=== PATIENT | male | born 1940 ===

== ENCOUNTER 2016-05-13 13:28 | Observation (INO) | payer MEDICARE, MEDICAID ==
[2016-05-13 13:29] VITALS: BMI 25.7
[2016-05-13 13:44] VITALS: O2SAT 100
--- NOTE | 2016-05-13 14:38 | C.PDOC ---
History Of Present Illness 75 yr old male presents to the ER with complaints of chest pain for the last 3 hours with mild SOB. Patient also reports of bilateral shoulder pain and upper back pain. Patient states he has been seen multiple times before for similar symptoms. Patient denies taking pain medications at home. Also denies fever, chills cough, nausea, vomiting, headache, weakness or numbness. 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) Past Medical History Reviewed: Historical Data, Nursing Documentation, Vital Signs Vital Signs: Last Vital Signs Temp 97.7 F 05/13/16 18:35 Pulse 77 05/13/16 18:35 Resp 18 05/13/16 18:35 BP 153/68 H 05/13/16 18:35 Pulse Ox 100 05/13/16 18:35 - Medical History PMH: Anxiety, Arthritis, Asthma, Back Problems (Chronic Pain), Diabetes, HTN, Hypercholesterolemia Surgical History: Coronary Stent - [facility] Procedures CORONAR ARTERIOGR-2 CATH (12/02/13) LEFT HEART CARDIAC CATH (12/02/13) LT HEART ANGIOCARDIOGRAM (12/02/13) Family History: States: No Known Family Hx - Social History Hx Tobacco Use: Yes Hx Alcohol Use: No Hx Substance Use: No - Immunization History Hx Tetanus Toxoid Vaccination: No Hx Influenza Vaccination: No Hx Pneumococcal Vaccination: No Review Of Systems Except As Marked, All Systems Reviewed And Found Negative. Constitutional: Negative for: Fever Cardiovascular: Positive for: Chest Pain Respiratory: Positive for: Shortness of Breath (mild) Gastrointestinal: Negative for: Nausea, Vomiting Musculoskeletal: Positive for: Shoulder Pain (bilateral ), Back Pain (upper) Neurological: Negative for: Weakness, Numbness, Headache Physical Exam - Physical Exam Appears: Non-toxic, No Acute Distress Skin: Warm, Dry Head: Atraumatic, Normacephalic Oral Mucosa: Moist Throat: Normal, No Erythema, No Exudate Neck: Normal, Normal ROM, Supple Chest: Symmetrical, Other ((+) Reproducible palpitations to the anterior chest, upper thoracic and trapezius muscle. ) Cardiovascular: Rhythm Regular, No Murmur Respiratory: Normal Breath Sounds, No Rales, No Rhonchi, No Stridor, No Wheezing Gastrointestinal/Abdominal: Normal Exam, Soft, No Tenderness, No Guarding, No Rebound Extremity: Normal ROM, No Swelling Neurological/Psych: Oriented x3, Normal Speech, Normal Motor ED Course And Treatment - Laboratory Results Result Diagrams: 05/13/16 14:54 05/13/16 14:54 O2 Sat by Pulse Oximetry: 100 - Radiology CXR: Interpreted by Me, Viewed By Me CXR Interpretation: Yes: No Acute Disease, Other (Compared to prior.). No: Infiltrates, Pnemothorax Medical Decision Making Medical Decision Making: pt here for same complaints mult times in the past. I disc w his pcp dr perez who agrees w plan for f/u in office monday. ED OBSERVATION Discharge: Yes Date of observation admission: 05/13/16 Time of observation admission: 15:00 - Observation admission statement Patient is being placed in observation because:: 3 hour trop Disposition - Disposition Disposition: HOME/ ROUTINE Disposition Time: 18:50 Condition: STABLE - Clinical Impression Clinical Impression: Chest pain - Scribe Statement The provider has reviewed the documentation as recorded by the Lester Cantu Provider Attestation: All medical record entries made by the Lester were at my direction and personally dictated by me. I have reviewed the chart and agree that the record accurately reflects my personal performance of the history, physical exam, medical decision making, and the department course for this patient. I have also personally directed, reviewed, and agree with the discharge instructions and disposition.
[2016-05-13 14:58] LABS: BASO # 0.1 K/uL (0.0-0.2); BASO % 1.1 % (0.0-2.0); EOS # 0.1 K/uL (0.0-0.7); EOS % 1.9 % (0.0-4.0); HEMATOCRIT 44.2 % (35.0-51.0); LYMPH # 1.2 K/uL (1.0-4.3); LYMPH % 26.1 % (20.0-40.0); MEAN CELL VOLUME 83.8 fL (80.0-94.0); MEAN CORPUSCULAR HEMOGLOBIN 28.5 pg (27.0-31.0); MEAN PLATELET VOLUME 8.8 fL (7.2-11.7); MONO # 0.5 K/uL (0.0-0.8); MONO % 10.3 % (0.0-10.0); NRBC % 0.1 % (0.0-2.0); RED CELL DISTRIBUTION WIDTH 13.8 % (11.5-14.5); WHITE BLOOD COUNT 4.8 K/uL (4.8-10.8)
[2016-05-13 15:11] LABS: CHLORIDE 96 mmol/L (98-107)
[2016-05-13 15:12] LABS: POTASSIUM 3.9 mmol/L (3.6-5.2); SODIUM 136 mmol/L (132-148)
[2016-05-13 15:14] LABS: ALB/GLOB RATIO 1.3 (1.0-2.1); AST/SGOT 32 U/L (17-59); BILIRUBIN,TOTAL 1.2 mg/dL (0.2-1.3); CARBON DIOXIDE 28 mmol/L (22-30); GFR AFRICAN-AMERICAN > 60; TOTAL PROTEIN 7.8 g/dL (6.3-8.3)
[2016-05-13 15:15] LABS: ALKALINE PHOSPHATASE 66 U/L (38-126); ALT/SGPT 27 U/L (21-72); BLOOD UREA NITROGEN 20 mg/dL (9-20); CALCIUM 9.1 mg/dl (8.6-10.4); GLUCOSE,RANDOM 137 mg/dL (75-110)
--- NOTE | 2016-05-13 15:28 | RAD ---
HISTORY: cp COMPARISON: Chest x-ray performed 04/21/16 TECHNIQUE: Chest PA and lateral FINDINGS: Examination limited by habitus. LUNGS: Bibasilar atelectasis. Scattered probable calcified granulomas. Please note that chest x-ray has limited sensitivity for the detection of pulmonary masses. PLEURA: No significant pleural effusion identified. No definite pneumothorax . CARDIOVASCULAR: Heart size appears within normal limits. Tortuous aorta. OSSEOUS STRUCTURES: Degenerative changes of the spine. VISUALIZED UPPER ABDOMEN: Unremarkable. OTHER FINDINGS: Scattered punctate radiopaque densities projects over the right navya thorax most prominent in the right upper lobe. IMPRESSION: Scattered metallic densities project over the right navya thorax. Bibasilar atelectasis.
[2016-05-13 18:35] VITALS: BP 153/68; PULSE 77; RESP 18; TEMP 97.7
--- NOTE | 2016-05-15 23:46 | CARD ---
APPROVED REPORT EKG Measurement Heart [id number] 148P50 [id number] <Conclusion> Normal sinus rhythm Normal ECG
== END 2016-05-13 18:51 | disposition home or self-care (01) ==
LOC: C.ER 13:28 → C.9OBSV 15:58
PROVIDERS: ADMIT Emergency Medicine; ATTEND Emergency Medicine
DX: R07.9 Chest pain, unspecified (principal); I10 Essential (primary) hypertension; E78.00 Pure hypercholesterolemia, unspecified; Z87.891 Personal history of nicotine dependence; J45.909 Unspecified asthma, uncomplicated; E11.9 Type 2 diabetes mellitus without complications; Z95.5 Presence of coronary angioplasty implant and graft; I25.10 Atherosclerotic heart disease of native coronary artery without angina pectoris
CPT/HCPCS: 36415; 71020; 80053; 84484; 85025; 93005; 96374; 99284; G0378; J1885

== ENCOUNTER 2016-05-19 13:23 | Observation (INO) | payer MEDICARE, MEDICAID ==
[2016-05-19 13:24] VITALS: BMI 25.7
[2016-05-19] MEDS ORDERED: Aspirin 325 mg EC Tablets PO STA (14:06)
[2016-05-19] MEDS ORDERED: Sodium Chloride 0.9% 1,000 ML IV ONE (14:06)
--- NOTE | 2016-05-19 14:09 | C.PDOC ---
History Of Present Illness 76 y/o male presents to the ED with complains of midsternal chest pain which onset at 0800 today. Pain radiates to bilateral shoulders, also complaining of SOB. Pt called PMD Kandace who told patient to go to ED. Pt denies dizziness, weakness, numbness, vomiting or any other complaints. Time Seen by Provider: 05/19/16 13:56 Chief Complaint (Nursing): Chest Pain History Per: Patient History/Exam Limitations: no limitations Onset/Duration Of Symptoms: Hrs Current Symptoms Are (Timing): Still Present Severity: Mild Quality: "Pain" Modifying Factors: None Alleviating Factors: None Recent travel outside of the [place]: No Past Medical History Reviewed: Historical Data, Nursing Documentation, Vital Signs Vital Signs: Last Vital Signs Temp 97.6 F 05/19/16 13:31 Pulse 76 05/19/16 15:29 Resp 17 05/19/16 15:29 BP 125/57 L 05/19/16 15:29 Pulse Ox 97 05/19/16 15:29 - Medical History PMH: Anxiety, Arthritis, Asthma, Back Problems (Chronic Pain), Diabetes, HTN, Hypercholesterolemia Surgical History: Coronary Stent - [facility] Procedures CORONAR ARTERIOGR-2 CATH (12/02/13) LEFT HEART CARDIAC CATH (12/02/13) LT HEART ANGIOCARDIOGRAM (12/02/13) Family History: States: Unknown Family Hx - Social History Hx Tobacco Use: Yes Hx Alcohol Use: No Hx Substance Use: No - Immunization History Hx Tetanus Toxoid Vaccination: No Hx Influenza Vaccination: No Hx Pneumococcal Vaccination: No Review Of Systems Constitutional: Negative for: Fever Cardiovascular: Positive for: Chest Pain (radiating to shoulders) Respiratory: Positive for: Shortness of Breath Gastrointestinal: Negative for: Vomiting Neurological: Negative for: Weakness, Numbness, Headache, Dizziness Physical Exam - Physical Exam Appears: Non-toxic, No Acute Distress Skin: Warm, Dry, No Rash Head: Atraumatic, Normacephalic Eye(s): bilateral: Normal Inspection, EOMI Oral Mucosa: Moist Neck: Normal ROM Chest: Symmetrical, Tenderness (anterior chest wall tenderness) Cardiovascular: Rhythm Regular, No Murmur Respiratory: Normal Breath Sounds, No Rales, No Rhonchi, No Wheezing Gastrointestinal/Abdominal: Soft Extremity: Bilateral: Atraumatic, No Pedal Edema, Normal Color And Temperature, Normal ROM Pulses: Left Radial: Normal Neurological/Psych: Oriented x3, Normal Speech Gait: Steady ED Course And Treatment - Laboratory Results Result Diagrams: 05/19/16 14:27 05/19/16 14:27 Lab Interpretation: No Acute Changes ECG: Interpreted By Me, Viewed By Me ECG Rhythm: Sinus Rhythm Rate From EC (BPM) O2 Sat by Pulse Oximetry: 97 (on room air) Pulse Ox Interpretation: Normal Medical Decision Making Medical Decision Making: Plan: * EKG, CXR * labs * aspirin * IV fluids EKG REVIEWED. LAB NO ACUTE CHANGES. TROP NEGATIVE SPOKE TO DR JERONIMO WHO WANTS PATIENT OBS-TELE ADMISSION FOR CHEST PAIN AND FURTHER CARDIAC WORKUP Disposition - Disposition Disposition: HOSPITALIZED Disposition Time: 15:05 Condition: STABLE - POA Present On Arrival: Poor Glycemic Control - Clinical Impression Clinical Impression: Chest pain - PA / MANAGER GAMES / Resident Statement MD/DO has reviewed & agrees with the documentation as recorded. - Scribe Statement The provider has reviewed the documentation as recorded by the Scribe Richmond Ramirez All medical record entries made by the Scribe were at my direction and personally dictated by me. I have reviewed the chart and agree that the record accurately reflects my personal performance of the history, physical exam, medical decision making, and the department course for this patient. I have also personally directed, reviewed, and agree with the discharge instructions and disposition. Decision To Admit - Pt Status Changed To: Hospital Disposition Of: Observation - . Bed Request Type: Telemetry Admitting Physician: Freida Jeronimo Patient Diagnosis: Chest pain
[2016-05-19] MEDS ORDERED: Aspirin 325 mg EC Tablets PO ONE (14:16)
[2016-05-19] MEDS ORDERED: Sodium Chloride 0.9% 1,000 ML ONE (14:17)
[2016-05-19 14:36] LABS: BASO # 0.1 K/uL (0.0-0.2); BASO % 1.3 % (0.0-2.0); EOS # 0.1 K/uL (0.0-0.7); EOS % 1.6 % (0.0-4.0); HEMATOCRIT 43.8 % (35.0-51.0); LYMPH % 24.5 % (20.0-40.0); MEAN CELL VOLUME 84.7 fL (80.0-94.0); MEAN CORPUSCULAR HEMOGLOBIN 28.6 pg (27.0-31.0); MEAN CORPUSCULAR HGB CONC 33.7 g/dL (33.0-37.0); MEAN PLATELET VOLUME 8.7 fL (7.2-11.7); MONO # 0.4 K/uL (0.0-0.8); MONO % 10.3 % (0.0-10.0); RED CELL DISTRIBUTION WIDTH 13.3 % (11.5-14.5); WHITE BLOOD COUNT 4.1 K/uL (4.8-10.8)
[2016-05-19 14:41] LABS: CHLORIDE 91 mmol/L (98-107); SODIUM 134 mmol/L (132-148)
[2016-05-19 14:42] LABS: POTASSIUM 4.2 mmol/L (3.6-5.2)
[2016-05-19 14:44] LABS: ALB/GLOB RATIO 1.3 (1.0-2.1); ALKALINE PHOSPHATASE 77 U/L (38-126); ALT/SGPT 21 U/L (21-72); AST/SGOT 23 U/L (17-59); BILIRUBIN,TOTAL 0.8 mg/dL (0.2-1.3); BLOOD UREA NITROGEN 17 mg/dL (9-20); CARBON DIOXIDE 28 mmol/L (22-30); GFR AFRICAN-AMERICAN > 60; GLUCOSE,RANDOM 352 mg/dL (75-110); TOTAL PROTEIN 7.6 g/dL (6.3-8.3)
[2016-05-19 14:45] LABS: CALCIUM 8.9 mg/dl (8.6-10.4)
--- NOTE | 2016-05-19 14:58 | RAD ---
HISTORY: chest pain COMPARISON: Chest x-ray performed 05/13/16 TECHNIQUE: Chest PA and lateral FINDINGS: LUNGS: Bibasilar atelectasis. Please note that chest x-ray has limited sensitivity for the detection of pulmonary masses. PLEURA: No significant pleural effusion identified. No definite pneumothorax . CARDIOVASCULAR: Heart size appears top normal. Tortuous aorta. OSSEOUS STRUCTURES: Mild degenerative changes of the spine. VISUALIZED UPPER ABDOMEN: Unremarkable. OTHER FINDINGS: Scattered punctate metallic/ radiopaque densities project over the right navya thorax. IMPRESSION: Bibasilar atelectasis.
--- NOTE | 2016-05-19 18:31 | CP.PCM.HP ---
Past Patient History - Infectious Disease Hx of Infectious Diseases: None - Past Medical History & Family History Past Medical History?: Yes - Past Social History Smoking Status: Former Smoker - CARDIAC Hx Hypercholesterolemia: Yes Hx Hypertension: Yes - PULMONARY Hx Asthma: Yes - NEUROLOGICAL Hx Neurological Disorder: Yes Hx Dizziness: Yes - HEENT Hx HEENT Problems: Yes Other/Comment: has eyeglasses for reading but doesn't use. - RENAL Hx Chronic Kidney Disease: No - ENDOCRINE/METABOLIC Hx Endocrine Disorders: Yes Hx Diabetes Mellitus Type 1: Yes - HEMATOLOGICAL/ONCOLOGICAL Hx Blood Disorders: No - INTEGUMENTARY Hx Dermatological Problems: No - MUSCULOSKELETAL/RHEUMATOLOGICAL Hx Arthritis: Yes - GASTROINTESTINAL Hx Gastrointestinal Disorders: Yes Hx Nausea: Yes Hx Vomiting: Yes - GENITOURINARY/GYNECOLOGICAL Hx Genitourinary Disorders: No - PSYCHIATRIC Hx Anxiety: Yes Hx Substance Use: No - SURGICAL HISTORY Hx Coronary Stent: Yes - ANESTHESIA Hx Anesthesia: Yes Hx Anesthesia Reactions: No Hx Malignant Hyperthermia: No Meds Allergies/Adverse Reactions: Allergies Allergy/AdvReac Type Severity Reaction Status Date / Time morphine Allergy Intermediate SWELLING Verified 05/19/16 13:48 Results - Vital Signs Recent Vital Signs: Last Vital Signs Temp 97.6 F 05/19/16 13:31 Pulse 73 05/19/16 17:42 Resp 12 05/19/16 17:42 BP 155/72 H 05/19/16 17:42 Pulse Ox 99 05/19/16 17:42 - Labs Result Diagrams: 05/19/16 14:27 05/19/16 14:27
[2016-05-19] MEDS: (Novolin R) Insulin Human Regular 100 units/ml vial SC SCH (22:00)
--- NOTE | 2016-05-20 01:36 | CP.PCM.CON ---
History of Present Illness - History of Present Illness History of Present Illness: For stress test in am Past Patient History - Infectious Disease Hx of Infectious Diseases: None - Past Medical History & Family History Past Medical History?: Yes - Past Social History Smoking Status: Former Smoker - CARDIAC Hx Cardiac Disorders: Yes Hx Hypercholesterolemia: Yes Hx Hypertension: Yes - PULMONARY Hx Respiratory Disorders: Yes Hx Asthma: Yes - NEUROLOGICAL Hx Neurological Disorder: Yes Hx Dizziness: Yes - HEENT Hx HEENT Problems: Yes Other/Comment: has eyeglasses for reading but doesn't use. - RENAL Hx Chronic Kidney Disease: No - ENDOCRINE/METABOLIC Hx Endocrine Disorders: Yes Hx Diabetes Mellitus Type 2: Yes - HEMATOLOGICAL/ONCOLOGICAL Hx Blood Disorders: No - INTEGUMENTARY Hx Dermatological Problems: No - MUSCULOSKELETAL/RHEUMATOLOGICAL Hx Musculoskeletal Disorders: Yes Hx Arthritis: Yes Hx Falls: No - GASTROINTESTINAL Hx Gastrointestinal Disorders: Yes Hx Nausea: Yes Hx Vomiting: Yes - GENITOURINARY/GYNECOLOGICAL Hx Genitourinary Disorders: No - PSYCHIATRIC Hx Psychophysiologic Disorder: Yes Hx Anxiety: Yes Hx Substance Use: No - SURGICAL HISTORY Hx Surgeries: Yes Hx Coronary Stent: Yes - ANESTHESIA Hx Anesthesia: Yes Hx Anesthesia Reactions: No Hx Malignant Hyperthermia: No Meds Allergies/Adverse Reactions: Allergies Allergy/AdvReac Type Severity Reaction Status Date / Time morphine Allergy Intermediate SWELLING Verified 05/19/16 13:48 - Medications Medications: Current Medications Aspirin (Aspirin Chewable) 81 mg PO DAILY [facility] Insulin Human Regular (Novolin R) 0 unit SC ACHS [facility]PA PRN Reason: Protocol Last Admin: 05/19/16 22:00 Dose: Not Given Ketorolac Tromethamine (Toradol) 30 mg IVP Q6 PRN PRN Reason: Pain, Mild (1-3) Last Admin: 05/19/16 22:04 Dose: 30 mg Metformin HCl (Glucophage) 500 mg PO BID [facility] Metoprolol Succinate (Toprol Xl) 50 mg PO DAILY [facility] Pantoprazole Sodium (Protonix Ec Tab) 40 mg PO DAILY [facility] Rosuvastatin Calcium (Crestor) 10 mg PO HS [facility] Last Admin: 05/19/16 22:03 Dose: 10 mg Sitagliptin Phosphate (Januvia) 50 mg PO DAILY [facility] Results - Vital Signs Recent Vital Signs: Last Vital Signs Temp 97.7 F 05/19/16 19:00 Pulse 75 05/19/16 23:56 Resp 16 05/19/16 19:00 BP 157/91 H 05/19/16 20:27 Pulse Ox 98 05/19/16 19:00 - Labs Result Diagrams: 05/19/16 14:27 05/19/16 14:27 Labs: Laboratory Results - last 24 hr 05/19/16 05/19/16 05/19/16 19:43 20:47 20:58 POC Glucose (mg/dL) 292 H 290 H Total Creatine Kinase 73 CK-MB (Mass) 0.96 Troponin I, Quant 0.0160
[2016-05-20 02:13] VITALS: BP 168/87; RESP 20; TEMP 97.1; O2SAT 96
[2016-05-20] MEDS: (Novolin R) Insulin Human Regular 100 units/ml vial SC SCH ×2 (07:43→13:06)
[2016-05-20 07:47] VITALS: PULSE 78
[2016-05-20] MEDS ORDERED: Metoprolol Succinate 50 mg XL Tab PO SCH (10:00)
[2016-05-20] MEDS ORDERED: Pantoprazole 40 mg EC Tab PO SCH (10:00)
--- NOTE | 2016-05-20 13:52 | CARD ---
APPROVED REPORT Protocol: PHARMACOLOGICAL Test Type: LEXISCAN Test Indications: CP Target HR: 142 bpm Resting ECG: normal Resting Heart Rate: 64 bpm Resting Blood Pressure: 140/80mmHg submaximum (85%): 121 bpm TEST SUMMARY PREINFSNHYPERV.16:[id number]/80.0. INFUSIONDOSE 100:310.00.01.068/.0. [id number]:[id number]/80.0. PROCEDURE Pharmacologic stress testing was performed using 0.4mg per 5ml of regadenoson given intravenously over 7-10 seconds. POST EXERCISE Reason for Termination: Lexiscan protocol completed Target HR: No Max HR: 68 bpm 59% of Maximum Predicted HR: 142 bpm Exercise duration: 00:31 min:sec, 0 Stage Exercise capacity: 1.0METs Max Blood Pressure: 140/80mmHg Blood Pressure response to exercise: normal resting BP - appropriate response Heart Rate response to exercise: appropriate Chest Pain: No, none Angina index: 0 Arrhythmia: No, none ST Change: No, none Deviation: 0 mm INTERPRETATION Stress EKG Conclusion: Nuclear report to follow EXAM: Myocardial Perfusion STRESS/REST Imaging Protocol The imaging protocol used to acquire images was Stress Tc-99m/rest Tc-99m 1 day Stress Spect myocardial perfusion imaging was performed in supine position 39 minutes following the injection of 13.2 mCi of Tc-99 Myoview. Gated Rest Spect was performed 40 minutes after intravenous 32.6 mCi Tc-99 Myoview injection. The images were gated to evaluate regional wall motion and calculate ventricular ejection fraction.Images were reconstructed using backfilter projection method in short horizontal and verticle long axis. Spect slices were generated. RESTING DATA EDV82.46hwMQ2.90L/min ESV41.00mlMyocardial Ogja823.00g Av. Heart Rate71.00bpm EF50.00% STRESS DATA EDV85.65qiHK8.50L/min ESV33.00mlMyocardial Qvbx461.00g EF61.00% Regional WT score at stress:2.00 Regional WM score at stress:0.00 Summed WT score at stress:9.00 Av. Heart Rate67.00bpmSummed WM score at stress:2.00 LV Perf. Quant 17 Seg. SSS4.00 17 Seg. SRS5.00 17 Seg. SDS0.00 Stress Defect Extent (% LAD)0.00Rest Defect Extent (% LAD)0.00Rev. Defect Extent (% LAD)0.00 Stress Defect Extent (% LCX)27.50Rest Defect Extent (% LCX)37.50Rev. Defect Extent (% LCX)0.00 Stress Defect Extent (% RCA)0.00Rest Defect Extent (% RCA)0.00Rev. Defect Extent (% RCA)0.00 Stress Defect Extent (% YARELI)5.70Rest Defect Extent (% YARELI)8.50Rev. Defect Extent (% YARELI)0.00 Other Information Quality:Good Left Ventricle LV Function:Left ventricle systolic function is normal. The Ejection Fraction is 65-70%. Conclusion 1. Small fixed inferior defect. No ischemia on stress test. Normal EF.
--- NOTE | 2016-05-20 14:22 | CP.PCM.DIS ---
Provider - Provider Date of Admission: 05/19/16 15:05 Attending physician: Freida Jeronimo MD Hospital Course - Lab Results Lab Results: Most Recent Lab Values WBC 4.1 K/uL (4.8-10.8) L 05/19/16 14: RBC 5.16 Mil/uL (4.40-5.90) 05/19/16 14: Hgb 14.7 g/dL (12.0-18.0) 05/19/16 14: Hct 43.8 % (35.0-51.0) 05/19/16 14: MCV 84.7 fL (80.0-94.0) 05/19/16 14: MCH 28.6 pg (27.0-31.0) 05/19/16 14: MCHC 33.7 g/dL (33.0-37.0) 05/19/16 14: RDW 13.3 % (11.5-14.5) 05/19/16 14: Plt Count 199 K/uL (130-400) 05/19/16 14: MPV 8.7 fL (7.2-11.7) 05/19/16 14: Neut % (Auto) 62.3 % (50.0-75.0) 05/19/16 14: Lymph % (Auto) 24.5 % (20.0-40.0) 05/19/16 14: Brown % (Auto) 10.3 % (0.0-10.0) H 05/19/16 14: Eos % (Auto) 1.6 % (0.0-4.0) 05/19/16 14:27 Baso % (Auto) 1.3 % (0.0-2.0) 05/19/16 14: Neut # 2.6 K/uL (1.8-7.0) 05/19/16 14: Lymph # 1.0 K/uL (1.0-4.3) 05/19/16 14:27 Brown # 0.4 K/uL (0.0-0.8) 05/19/16 14: Eos # 0.1 K/uL (0.0-0.7) 05/19/16 14: Baso # 0.1 K/uL (0.0-0.2) 05/19/16 14:27 PT 11.2 SECONDS (9.7-12.2) 05/19/16 14:27 INR 1.0 05/19/16 14:27 APTT 31 SECONDS (21-34) 05/19/16 14:27 Sodium 134 mmol/L (132-148) 05/19/16 14:27 Potassium 4.2 mmol/L (3.6-5.2) 05/19/16 14:27 Chloride 91 mmol/L (98-107) L 05/19/16 14:27 Carbon Dioxide 28 mmol/L (22-30) 05/19/16 14:27 Anion Gap 19 (10-20) 05/19/16 14:27 BUN 17 mg/dL (9-20) 05/19/16 14:27 Creatinine 0.8 MG/DL (0.8-1.5) 05/19/16 14:27 Est GFR ( Amer) > 60 05/19/16 14:27 Est GFR (Non-Af Amer) > 60 05/19/16 14:27 POC Glucose (mg/dL) 329 mg/dL (65-110) H 05/20/16 12:37 Random Glucose 352 mg/dL (75-110) H 05/19/16 14:27 Calcium 8.9 mg/dl (8.6-10.4) 05/19/16 14:27 Total Bilirubin 0.8 mg/dL (0.2-1.3) 05/19/16 14:27 AST 23 U/L (17-59) 05/19/16 14:27 ALT 21 U/L (21-72) D 05/19/16 14:27 Alkaline Phosphatase 77 U/L (38-126) 05/19/16 14:27 Total Creatine Kinase 69 U/L (55-170) 05/20/16 07:23 CK-MB (Mass) 0.74 ng/mL (0.0-3.38) 05/20/16 07:23 Troponin I < 0.0120 ng/mL (0.00-0.120) 05/19/16 14:27 Troponin I, Quant < 0.0120 ng/mL (0.00-0.120) 05/20/16 07:23 NT-Pro-B Natriuret Pep 94.7 pg/mL (0-900) 05/19/16 14:27 Total Protein 7.6 g/dL (6.3-8.3) 05/19/16 14:27 Albumin 4.3 g/dL (3.5-5.0) 05/19/16 14:27 Globulin 3.3 gm/dL (2.2-3.9) 05/19/16 14:27 Albumin/Globulin Ratio 1.3 (1.0-2.1) 05/19/16 14:27 Discharge Plan - Follow Up Plan Condition: STABLE Disposition: HOME/ ROUTINE
--- NOTE | 2016-05-21 15:08 | CARD ---
APPROVED REPORT EKG Measurement Heart [id number] VT 154P51 [id number] <Conclusion> Normal sinus rhythm Normal ECG
--- NOTE | 2016-05-22 15:42 | CARD ---
APPROVED REPORT EXAM: Two-dimensional and M-mode echocardiogram with Doppler and color Doppler. Other Information Quality : GoodRhythm : INDICATION Dizziness and Vertigo Chest Pain RISK FACTORS Hypertension Hyperlipidemia Diabetes M-Mode DIMENSIONS RVDd2.34 (2.1-3.2cm)Left Atrium (MM)3.63 (2.5-4.0cm) IVSd1.17 (0.7-1.1cm)Aortic Root3.32 (2.2-3.7cm) LVDd5.74 (4.0-5.6cm)Aortic Cusp Exc.1.91 (1.5-2.0cm) PWd1.17 (0.7-1.1cm)FS (%) 41 % LVDs3.36 (2.0-3.8cm)LVEF (%)72 (>50%) Aortic Valve AI P 1/2 [id number] Mitral Valve MV E Dpqpyqbu25.6cm/sMV A Ahpkcwcf44.8cm/sE/A ratio0.6 TDI E/Lateral E'0.0E/Medial E'0.0 Tricuspid Valve TR Peak Vbwgowhv636bf/sTR Peak Gr.06ivVoTKAG53giMy LEFT VENTRICLE The Left Ventricle is borderline dilated. There is mild concentric left ventricular hypertrophy. The Ejection Fraction is 65-70%. There is normal LV segmental wall motion. Transmitral Doppler flow pattern is Grade I-abnormal relaxation pattern. RIGHT VENTRICLE The right ventricle is normal size. The right ventricular systolic function is normal. ATRIA The left atrium size is normal. The right atrium size is normal. The interatrial septum is intact with no evidence for an atrial septal defect. AORTIC VALVE The aortic valve is mildly sclerotic. The aortic valve is trileaflet. There is mild aortic regurgitation. MITRAL VALVE Mitral annular calcification is moderate. Mitral regurgitation is mild. TRICUSPID VALVE The tricuspid valve is normal in structure. There is mild tricuspid regurgitation. Right ventricular systolic pressure is estimated at 30 mmHg. There is no pulmonary hypertension. PULMONIC VALVE The pulmonary valve is normal in structure. GREAT VESSELS The aortic root is normal size. The aortic root displays mild sclerocalcific changes of the aortic root. The IVC is normal in size and collapses >50% with inspiration. PERICARDIAL EFFUSION There is no pericardial effusion. <Conclusion> The Left Ventricle is borderline dilated. There is mild concentric left ventricular hypertrophy. The Ejection Fraction is 65-70%. Transmitral Doppler flow pattern is Grade I-abnormal relaxation pattern. There is mild aortic regurgitation. Mitral regurgitation is mild. The aortic root is normal size. The aortic root displays mild sclerocalcific changes of the aortic root.
== END 2016-05-20 14:47 | disposition home or self-care (01) ==
LOC: C.ER 13:23 → C.9E 15:05 → C.6T 17:23
PROVIDERS: ADMIT Internal Medicine; ATTEND Internal Medicine
DX: R07.9 Chest pain, unspecified (principal); E78.00 Pure hypercholesterolemia, unspecified; I10 Essential (primary) hypertension; Z87.891 Personal history of nicotine dependence; J45.909 Unspecified asthma, uncomplicated
CPT/HCPCS: 36415; 71020; 78452; 80053; 82948; 83880; 84484; 85025; 85610; 85730; 93005; 93017; 93306; 96361; 96374; 99285; A9502; G0378; J1885; J7040

== ENCOUNTER 2016-06-03 13:42 | Emergency (ER) | payer MEDICARE, MEDICAID ==
[2016-06-03 13:42] VITALS: BMI 25.7
[2016-06-03 15:41] VITALS: RESP 18
== END 2016-06-03 15:03 | disposition left against medical advice (07) ==
LOC: C.ER 13:42
DX: M79.672 Pain in left foot (principal); M79.671 Pain in right foot; Z02.9 Encounter for administrative examinations, unspecified

== ENCOUNTER 2016-06-08 10:07 | Emergency (ER) | payer MEDICARE, MEDICAID ==
[2016-06-08 10:08] VITALS: BMI 25.7
[2016-06-08 10:17] VITALS: TEMP 97.3
[2016-06-08] MEDS ORDERED: Nitroglycerin 2% Ointment Foilpak UD TOP STA (10:35)
--- NOTE | 2016-06-08 10:35 | C.PDOC ---
History Of Present Illness 76 Y/O MALE C/O CHEST PAIN SINCE 0800 THIS MORNING. PT WITH MULTIPLE SIMILAR PRIOR VISITS FOR SAME COMPLAINT. PAST RECORDS SHOW PT DISCHARGED FROM THE HOSPITAL 05/20/16, S/P STRESS TEST BY DR. BLAKE, REPORT SHOWING NO ISCHEMIC FINDINGS. PT STATES HE HAS NOT TAKEN ANY MEDICATION FOR PAIN TODAY. DENIES SOB, DYSPNEA, DIAPHORESIS, ABDOMINAL PAIN, NAUSEA, VOMITING, OR OTHER ASSOCIATED SYMPTOMS. Time Seen by Provider: 06/08/16 10:26 Chief Complaint (Nursing): Chest Pain History Per: Patient History/Exam Limitations: language barrier (TRANSLATED BY NEPTALI CAMARA) Onset/Duration Of Symptoms: Hrs Current Symptoms Are (Timing): Still Present Quality: "Pain" Associated Symptoms: denies: Dyspnea Recent travel outside of the [place]: No Additional History Per: Prior Records Past Medical History Reviewed: Historical Data, Nursing Documentation, Vital Signs Vital Signs: Last Vital Signs Temp 97.3 F L 06/08/16 10:15 Pulse 83 06/08/16 11:14 Resp 15 06/08/16 11:14 BP 114/69 06/08/16 11:14 Pulse Ox 98 06/08/16 11:14 - Medical History PMH: Anxiety, Arthritis, Asthma, Back Problems (Chronic Pain), Diabetes, HTN, Hypercholesterolemia Surgical History: Coronary Stent - [facility] Procedures CORONAR ARTERIOGR-2 CATH (12/02/13) LEFT HEART CARDIAC CATH (12/02/13) LT HEART ANGIOCARDIOGRAM (12/02/13) Family History: States: Unknown Family Hx - Social History Hx Tobacco Use: Yes Hx Alcohol Use: No Hx Substance Use: No - Immunization History Hx Tetanus Toxoid Vaccination: No Hx Influenza Vaccination: No Hx Pneumococcal Vaccination: No Review Of Systems Except As Marked, All Systems Reviewed And Found Negative. Constitutional: Negative for: Fever, Chills Cardiovascular: Positive for: Chest Pain. Negative for: Palpitations Respiratory: Negative for: Cough, Shortness of Breath, Wheezing Gastrointestinal: Negative for: Nausea, Vomiting, Abdominal Pain Skin: Negative for: Rash Physical Exam - Physical Exam Appears: Non-toxic, No Acute Distress Skin: Normal Color, Warm, Dry, No Diaphoretic Head: Atraumatic, Normacephalic Chest: Symmetrical, No Tenderness Cardiovascular: Rhythm Regular Respiratory: Normal Breath Sounds, No Rales, No Rhonchi, No Wheezing Gastrointestinal/Abdominal: Soft, No Tenderness, No Guarding, No Rebound Back: Normal Inspection Extremity: Normal ROM, Capillary Refill (< 2 SEC. ) Neurological/Psych: Oriented x3, Normal Speech, Normal Cognition ED Course And Treatment - Laboratory Results Result Diagrams: 06/08/16 10:54 06/08/16 10:54 O2 Sat by Pulse Oximetry: 97 (RA) Pulse Ox Interpretation: Normal Progress - Re-Evaluation Re-evaluation Note: 06/08/16 10:35 EKG, CXR, CARDIAC LABS ORDERED. TYLENOL, NITRO SL GIVEN. 06/08/16 12:57 D/W OPMPMD CLEARED FOR DC - Data Reviewed Data Reviewed: Lab, Diagnostic imaging, EKG, Old records - Continuity of Care Discussed patient case with:: Patient, PMD Disposition Counseled Patient/Family Regarding: Studies Performed, Diagnosis, Need For Followup - Disposition Referrals: YOUR,PMD [Other] Disposition: HOME/ ROUTINE Disposition Time: 12:58 Condition: IMPROVED Instructions: Chest Pain (ED) Print Language: PERSIAN - Clinical Impression Clinical Impression: Chest pain - Scribe Statement The provider has reviewed the documentation as recorded by the Lester Huerta Provider Scribe Attestation: All medical record entries made by the Lester were at my direction and personally dictated by me. I have reviewed the chart and agree that the record accurately reflects my personal performance of the history, physical exam, medical decision making, and the department course for this patient. I have also personally directed, reviewed, and agree with the discharge instructions and disposition.
[2016-06-08] MEDS ORDERED: Nitroglycerin 2% Ointment Foilpak UD TOP ONE (10:43)
[2016-06-08 11:00] LABS: BASO # 0.1 K/uL (0.0-0.2); EOS # 0.1 K/uL (0.0-0.7); EOS % 2.1 % (0.0-4.0); HEMATOCRIT 46.4 % (35.0-51.0); LYMPH # 1.5 K/uL (1.0-4.3); LYMPH % 22.3 % (20.0-40.0); MEAN CELL VOLUME 83.7 fL (80.0-94.0); MEAN CORPUSCULAR HEMOGLOBIN 28.3 pg (27.0-31.0); MEAN CORPUSCULAR HGB CONC 33.8 g/dL (33.0-37.0); MEAN PLATELET VOLUME 8.9 fL (7.2-11.7); MONO # 0.6 K/uL (0.0-0.8); MONO % 8.9 % (0.0-10.0); RED CELL DISTRIBUTION WIDTH 14.2 % (11.5-14.5); WHITE BLOOD COUNT 6.9 K/uL (4.8-10.8)
[2016-06-08 11:05] LABS: CHLORIDE 97 mmol/L (98-107); POTASSIUM 3.5 mmol/L (3.6-5.2); SODIUM 141 mmol/L (132-148)
[2016-06-08 11:08] LABS: BLOOD UREA NITROGEN 19 mg/dL (9-20); CARBON DIOXIDE 27 mmol/L (22-30); GFR AFRICAN-AMERICAN > 60
[2016-06-08 11:09] LABS: GLUCOSE,RANDOM 64 mg/dL (75-110)
--- NOTE | 2016-06-08 11:35 | RAD ---
HISTORY: Chest pain COMPARISON: 05/19/2016. TECHNIQUE: Chest PA and lateral FINDINGS: LUNGS: The lungs are clear. There is bibasilar atelectasis/scarring. There is no focal consolidation. PLEURA: No significant pleural effusion identified. No pneumothorax apparent. CARDIOVASCULAR: Normal. OSSEOUS STRUCTURES: No significant abnormalities. VISUALIZED UPPER ABDOMEN: Normal. OTHER FINDINGS: There are tiny metallic densities projecting over the right hemithorax stable dating back to September 2014. IMPRESSION: No active pulmonary disease.
[2016-06-08 13:15] VITALS: BP 107/68; PULSE 82; RESP 16; O2SAT 100
--- NOTE | 2016-06-16 08:38 | CARD ---
APPROVED REPORT EKG Measurement Heart [id number] <Conclusion> Normal sinus rhythm Nonspecific T wave abnormality Abnormal ECG
== END 2016-06-08 13:14 | disposition home or self-care (01) ==
LOC: C.ER 10:07
DX: R07.9 Chest pain, unspecified (principal)

== ENCOUNTER 2016-06-09 15:07 | Observation (INO) | payer MEDICARE, MEDICAID ==
[2016-06-09 15:11] VITALS: BMI 26.6
[2016-06-09] MEDS ORDERED: Aspirin 325 mg EC Tablets PO STA (16:36)
[2016-06-09] MEDS ORDERED: Nitroglycerin 2% Ointment Foilpak UD TOP STA (16:36)
[2016-06-09] MEDS ORDERED: Aspirin 325 mg EC Tablets PO ONE (16:46)
[2016-06-09] MEDS ORDERED: Nitroglycerin 2% Ointment Foilpak UD TOP ONE (16:47)
[2016-06-09 16:55] LABS: BASO % 0.8 % (0.0-2.0); EOS # 0.1 K/uL (0.0-0.7); EOS % 1.8 % (0.0-4.0); HEMATOCRIT 43.2 % (35.0-51.0); LYMPH # 1.1 K/uL (1.0-4.3); LYMPH % 21.5 % (20.0-40.0); MEAN CELL VOLUME 84.8 fL (80.0-94.0); MEAN CORPUSCULAR HEMOGLOBIN 28.7 pg (27.0-31.0); MEAN CORPUSCULAR HGB CONC 33.9 g/dL (33.0-37.0); MONO # 0.5 K/uL (0.0-0.8); MONO % 9.3 % (0.0-10.0); NRBC % 0.1 % (0.0-2.0); RED CELL DISTRIBUTION WIDTH 14.3 % (11.5-14.5); WHITE BLOOD COUNT 5.1 K/uL (4.8-10.8)
[2016-06-09 16:58] LABS: CHLORIDE 97 mmol/L (98-107); SODIUM 137 mmol/L (132-148)
[2016-06-09 16:59] LABS: POTASSIUM 4.4 mmol/L (3.6-5.2)
[2016-06-09 17:01] LABS: ALB/GLOB RATIO 1.3 (1.0-2.1); ALKALINE PHOSPHATASE 73 U/L (38-126); ALT/SGPT 26 U/L (21-72); AST/SGOT 21 U/L (17-59); BILIRUBIN,TOTAL 0.5 mg/dL (0.2-1.3); BLOOD UREA NITROGEN 22 mg/dL (9-20); CALCIUM 9.1 mg/dl (8.6-10.4); CARBON DIOXIDE 26 mmol/L (22-30); GFR AFRICAN-AMERICAN > 60; GLUCOSE,RANDOM 316 mg/dL (75-110); TOTAL PROTEIN 7.1 g/dL (6.3-8.3)
--- NOTE | 2016-06-09 17:10 | RAD ---
PROCEDURE: CHEST RADIOGRAPH, 1 VIEW HISTORY: chest pain COMPARISON: 06/08/2016 FINDINGS: LUNGS: Clear. PLEURA: No pneumothorax or pleural fluid seen. CARDIOVASCULAR: Normal. OSSEOUS STRUCTURES: No significant abnormalities. VISUALIZED UPPER ABDOMEN: Normal. OTHER FINDINGS: Tiny punctate metallic densities seen over the right hemithorax are stable back to 2015. Correlate with prior trauma history IMPRESSION: No active disease.
[2016-06-09 17:15] LABS: PARTIAL THROMBOPLASTIN TIME 26 SECONDS (21-34)
[2016-06-09] MEDS ORDERED: Sodium Chloride 0.9% 1,000 ML IV ONE (17:24)
[2016-06-09] MEDS ORDERED: Sodium Chloride 0.9% 1,000 ML ONE (17:31)
--- NOTE | 2016-06-09 18:05 | C.PDOC ---
Time Seen by Provider: 06/09/16 15:35 Chief Complaint (Nursing): Chest Pain History Per: Patient History/Exam Limitations: other (Dementia) Onset/Duration Of Symptoms: Unknown Current Symptoms Are (Timing): Still Present Severity: Moderate Quality: "Pain" Alleviating Factors: None Additional History Per: Prior Records Past Medical History Reviewed: Historical Data, Nursing Documentation, Vital Signs Vital Signs: Last Vital Signs Temp 97.7 F 06/09/16 15:12 Pulse 91 H 06/09/16 17:04 Resp 15 06/09/16 17:04 BP 107/69 06/09/16 17:04 Pulse Ox 99 06/09/16 17:04 - Medical History PMH: Anxiety, Arthritis, Asthma, Back Problems (Chronic Pain), Diabetes, Gastritis, HTN, Hypercholesterolemia, Hyperlipidemia Surgical History: Coronary Stent - [facility] Procedures CORONAR ARTERIOGR-2 CATH (12/02/13) LEFT HEART CARDIAC CATH (12/02/13) LT HEART ANGIOCARDIOGRAM (12/02/13) Family History: States: Unknown Family Hx - Social History Hx Tobacco Use: Yes Hx Alcohol Use: No (Former) Hx Substance Use: No - Immunization History Hx Tetanus Toxoid Vaccination: No Hx Influenza Vaccination: No Hx Pneumococcal Vaccination: No Review Of Systems Except As Marked, All Systems Reviewed And Found Negative. Constitutional: Negative for: Fever Cardiovascular: Positive for: Chest Pain Respiratory: Positive for: Shortness of Breath. Negative for: Hemoptysis Gastrointestinal: Negative for: Vomiting, Abdominal Pain Musculoskeletal: Negative for: Neck Pain Skin: Negative for: Rash Neurological: Negative for: Weakness Physical Exam - Physical Exam Appears: Non-toxic, No Acute Distress, Chronically Ill Skin: Normal Color, Warm, Dry, No Rash Head: Atraumatic, Normacephalic Eye(s): bilateral: PERRL, EOMI Neck: Normal ROM, Supple Chest: Symmetrical, No Deformity Cardiovascular: Rhythm Regular Respiratory: Normal Breath Sounds, No Accessory Muscle Use Gastrointestinal/Abdominal: Soft, No Tenderness Back: No CVA Tenderness Extremity: Normal ROM, No Pedal Edema, No Calf Tenderness Neurological/Psych: Normal Motor, Normal Sensation Disoriented To: Time ED Course And Treatment - Laboratory Results Result Diagrams: 06/09/16 16:43 06/09/16 16:43 ECG: Interpreted By Me, Viewed By Me ECG Rhythm: Sinus Rhythm, Nonspecific Changes Rate From EC O2 Sat by Pulse Oximetry: 99 Pulse Ox Interpretation: Normal - Radiology CXR: Interpreted by Me, Viewed By Me CXR Interpretation: Yes: No Acute Disease, Heart Size (WNL) Progress - Interventions Interventions:: Observation, Oxygen - Medications Administered Oral: Aspirin - Data Reviewed Data Reviewed: Lab, Diagnostic imaging, EKG, Old records - Patient Status Patient status: Mostly improved - Continuity of Care Discussed patient case with:: Patient, ED Nurse, PMD Disposition Discussed With : Freida Jeronimo Comment: He accepted pt on his service. Doctor Will See Patient In The: Hospital Counseled Patient/Family Regarding: Studies Performed, Diagnosis - Disposition Disposition: HOSPITALIZED Disposition Time: 18:05 Condition: FAIR - Clinical Impression Clinical Impression: Chest pain
--- NOTE | 2016-06-09 20:17 | CP.PCM.HP ---
History of Present Illness - History of Present Illness History of Present Illness: Chief complaint: Chest pain. History present illness: 76-year-old male with history diabetes, hypertension, hypercholesteremia, noncompliance with medications came to the emergency room with ongoing chest pain and chest discomfort. 2 days ago patient was an emergency with similar symptoms. Today patient was evaluated in the emergency room, testing were negative, but because of the ongoing chest pain and not improving patient will need hospitalization and observation. He denies any nausea vomiting. He sleeping okay otherwise. No shortness of breath currently. Present on Admission - Present on Admission Any Indicators Present on Admission: No History of DVT/PE: No History of Uncontrolled Diabetes: No Urinary Catheter: No Decubitus Ulcer Present: No Review of Systems - Review of Systems All systems: reviewed and no additional remarkable complaints except Review of Systems: Ongoing chest discomfort noted. ambulating okay. Using cane for walking. He is concerned that he is having lower back pain, he wants to have some pain medication including Percocet Past Patient History - Infectious Disease Hx of Infectious Diseases: None - Past Medical History & Family History Past Medical History?: Yes Past Family History: Reviewed and not pertinent - Past Social History Smoking Status: Former Smoker - CARDIAC Hx Hypercholesterolemia: Yes Hx Hypertension: Yes - PULMONARY Hx Asthma: Yes - NEUROLOGICAL Hx Neurological Disorder: Yes Hx Dizziness: Yes - HEENT Hx HEENT Problems: Yes (SEE COMMENT) Other/Comment: has eyeglasses for reading but doesn't use. - RENAL Hx Chronic Kidney Disease: No - ENDOCRINE/METABOLIC Hx Endocrine Disorders: Yes Hx Diabetes Mellitus Type 2: Yes - HEMATOLOGICAL/ONCOLOGICAL Hx Blood Disorders: No - INTEGUMENTARY Hx Dermatological Problems: No - MUSCULOSKELETAL/RHEUMATOLOGICAL Hx Arthritis: Yes - GASTROINTESTINAL Hx Gastritis: Yes - GENITOURINARY/GYNECOLOGICAL Hx Genitourinary Disorders: No - PSYCHIATRIC Hx Anxiety: Yes Hx Substance Use: No - SURGICAL HISTORY Hx Coronary Stent: Yes - ANESTHESIA Hx Anesthesia: Yes Hx Anesthesia Reactions: No Hx Malignant Hyperthermia: No Meds Allergies/Adverse Reactions: Allergies Allergy/AdvReac Type Severity Reaction Status Date / Time morphine Allergy Intermediate SWELLING Verified 06/09/16 15:10 Physical Exam - Head Exam Additional comments: On examination: HEENT PERRLA, neck supple No thyromegaly was noted and no cervical adenopathy noted Chest bilateral good air entry, no wheezing or rales noted CVS regular heart sound, no murmur Abdomen soft and no organomegaly Extremities no pedal edema, no leg swelling, pedal pulses are good. [employer] alert awake oriented x3 no functional neurological deficit Results - Vital Signs Recent Vital Signs: Last Vital Signs Temp 97.7 F 06/09/16 15:12 Pulse 86 06/09/16 19:36 Resp 17 06/09/16 19:36 BP 134/68 06/09/16 19:36 Pulse Ox 95 06/09/16 19:36 - Labs Result Diagrams: 06/09/16 16:43 06/09/16 16:43 Assessment & Plan (1) Chest pain Assessment and Plan: 76-year-old male with history multiple medical problems the including elevated cardiac risk factors such as hypertension, diabetes, hypertension, hypercholesteremia, and the age. Patient recently had a stress test also. Patient came to the emergency room with ongoing chest pain, not improving he Patient was hospitalized because of the ongoing chest pain. Closely monitor. Treatment. He was advised. Labs were ordered. EKG nonspecific. Cardiology evaluation was not called because of the recent stress test. If there is any changes supposed to be called, currently he stable otherwise. Will continue to monitor the patient, and contained the current Medicare management Status: Chronic (2) Chronic leg pain Status: Acute (3) Neuropathy Status: Acute
[2016-06-09] MEDS: (Novolin R) Insulin Human Regular 100 units/ml vial SC SCH (21:42)
[2016-06-09 22:10] VITALS: RESP 20
[2016-06-10 08:00] VITALS: BP 166/77; PULSE 71; TEMP 98.7; O2SAT 96
[2016-06-10] MEDS: (Novolin R) Insulin Human Regular 100 units/ml vial SC SCH ×2 (08:10→12:15)
[2016-06-10] MEDS ORDERED: Lactated Ringer's 500 ML IV SCH (08:30)
[2016-06-10] MEDS ORDERED: Tramadol 25 mg PO SCH (10:00)
--- NOTE | 2016-06-10 14:02 | CP.PCM.DIS ---
Provider - Provider Date of Admission: 06/09/16 18:06 Attending physician: Freida Jeronimo MD Time Spent in preparation of Discharge (in minutes): 45 Diagnosis - Discharge Diagnosis (1) Chest pain Status: Chronic (2) Chronic leg pain Status: Acute (3) Neuropathy Status: Acute Hospital Course - Lab Results Lab Results: Most Recent Lab Values WBC 5.1 K/uL (4.8-10.8) 06/09/16 16:43 RBC 5.09 Mil/uL (4.40-5.90) 06/09/16 16:43 Hgb 14.6 g/dL (12.0-18.0) 06/09/16 16:43 Hct 43.2 % (35.0-51.0) 06/09/16 16:43 MCV 84.8 fL (80.0-94.0) 06/09/16 16:43 MCH 28.7 pg (27.0-31.0) 06/09/16 16:43 MCHC 33.9 g/dL (33.0-37.0) 06/09/16 16:43 RDW 14.3 % (11.5-14.5) 06/09/16 16:43 Plt Count 213 K/uL (130-400) 06/09/16 16:43 MPV 9.0 fL (7.2-11.7) 06/09/16 16:43 Neut % (Auto) 66.6 % (50.0-75.0) 06/09/16 16:43 Lymph % (Auto) 21.5 % (20.0-40.0) 06/09/16 16:43 [place] % (Auto) 9.3 % (0.0-10.0) 06/09/16 16:43 Eos % (Auto) 1.8 % (0.0-4.0) 06/09/16 16:43 Baso % (Auto) 0.8 % (0.0-2.0) 06/09/16 16:43 Neut # 3.4 K/uL (1.8-7.0) 06/09/16 16:43 Lymph # 1.1 K/uL (1.0-4.3) 06/09/16 16:43 [place] # 0.5 K/uL (0.0-0.8) 06/09/16 16:43 Eos # 0.1 K/uL (0.0-0.7) 06/09/16 16:43 Baso # 0.0 K/uL (0.0-0.2) 06/09/16 16:43 PT 11.0 SECONDS (9.7-12.2) 06/09/16 16:43 INR 1.0 06/09/16 16:43 APTT 26 SECONDS (21-34) 06/09/16 16:43 D-Dimer, Quantitative < 200 ng/mlDDU (0-243) 06/09/16 16:43 Sodium 137 mmol/L (132-148) 06/09/16 16:43 Potassium 4.4 mmol/L (3.6-5.2) 06/09/16 16:43 Chloride 97 mmol/L (98-107) L 06/09/16 16:43 Carbon Dioxide 26 mmol/L (22-30) 06/09/16 16:43 Anion Gap 18 (10-20) 06/09/16 16:43 BUN 22 mg/dL (9-20) H 06/09/16 16:43 Creatinine 1.0 MG/DL (0.8-1.5) 06/09/16 16:43 Est GFR ( Amer) > 60 06/09/16 16:43 Est GFR (Non-Af Amer) > 60 06/09/16 16:43 POC Glucose (mg/dL) 332 mg/dL (65-110) H 06/10/16 11:08 Random Glucose 316 mg/dL (75-110) H 06/09/16 16:43 Calcium 9.1 mg/dl (8.6-10.4) 06/09/16 16:43 Total Bilirubin 0.5 mg/dL (0.2-1.3) 06/09/16 16:43 AST 21 U/L (17-59) 06/09/16 16:43 ALT 26 U/L (21-72) 06/09/16 16:43 Alkaline Phosphatase 73 U/L (38-126) 06/09/16 16:43 Total Creatine Kinase 64 U/L (55-170) 06/10/16 07:01 CK-MB (Mass) 0.84 ng/mL (0.0-3.38) 06/10/16 07:01 Troponin I < 0.0120 ng/mL (0.00-0.120) 06/09/16 16:43 Troponin I, Quant < 0.0120 ng/mL (0.00-0.120) 06/10/16 07:01 NT-Pro-B Natriuret Pep 30.0 pg/mL (0-900) 06/09/16 16:43 Total Protein 7.1 g/dL (6.3-8.3) 06/09/16 16:43 Albumin 4.0 g/dL (3.5-5.0) 06/09/16 16:43 Globulin 3.1 gm/dL (2.2-3.9) 06/09/16 16:43 Albumin/Globulin Ratio 1.3 (1.0-2.1) 06/09/16 16:43 - Hospital Course Hospital Course: 76-year-old male came to the office with history of diabetes, hypertension, hypercholesteremia, osteoarthritis, chronic spinal stenosis, associate with the bilateral sciatica and ongoing chest pain. Patient repeatedly coming to the emergency room because of the worsening back pain, and also complaining of ongoing chest discomfort and pain. Patient also has a history of mild dementia. Is a noncompressive the medications. He frequently comes to the emergency room, as well as in the hospital and office. I spoke to the patient's daughter able his condition. Patient's is currently taking care of him. Patient hospitalized because of ongoing chest pain. Given the recent is test is negative. I suggest the patient to be observed for 24 hours. Currently his cardiac enzymes are negative, with a moniliasis nonspecific patient is comfortable. Currently stable for discharge. Final diagnosis: Neck and chest pain, nonspecific, atypical chest discomfort. CAD is hypertension, hypercholesteremia, diabetes. Dementia. Spinal stenosis sciatica. Will continue the current treatment. Will follow the patient Discharge Plan - Follow Up Plan Condition: FAIR Disposition: HOME/ ROUTINE Instructions: Chest Pain (DC) Additional Instructions: TAKE YOUR MEDICATIONS INSTRUCTED BY YOUR DOCTOR. PLEASE CALL DR. BARFIELD OFFICE FOR APPOINTMENT TO SEE HIM IN HIS OFFICE IN ONE WEEK AFTER LEAVING THE HOSPITAL. IF SYMPTOMS PERSIST, PLEASE GO TO THE NEAREST EMERGENCY ROOM. Referrals: Freida Jeronimo MD [Staff Provider] -
--- NOTE | 2016-06-11 13:14 | CARD ---
APPROVED REPORT EKG Measurement Heart [id number] MO [id number] <Conclusion> Normal sinus rhythm Normal ECG
--- NOTE | 2016-06-11 15:26 | CARD ---
APPROVED REPORT EKG Measurement Heart [id number] MO [id number] <Conclusion> Normal sinus rhythm Possible Anterior infarct, age undetermined Abnormal ECG
== END 2016-06-10 14:33 | disposition home or self-care (01) ==
LOC: C.ER 15:07 → C.9E 18:06 → C.6T 20:03
PROVIDERS: ADMIT Internal Medicine; ATTEND Internal Medicine
DX: R07.9 Chest pain, unspecified (principal); I25.10 Atherosclerotic heart disease of native coronary artery without angina pectoris; I10 Essential (primary) hypertension; E78.00 Pure hypercholesterolemia, unspecified; M54.31 Sciatica, right side; M54.32 Sciatica, left side; M19.90 Unspecified osteoarthritis, unspecified site; E11.40 Type 2 diabetes mellitus with diabetic neuropathy, unspecified; F03.90 Unspecified dementia, unspecified severity, without behavioral disturbance, psychotic disturbance, mood disturbance, and anxiety; Z91.14 Patient's other noncompliance with medication regimen; Z87.891 Personal history of nicotine dependence; J45.909 Unspecified asthma, uncomplicated; Z95.5 Presence of coronary angioplasty implant and graft; F41.9 Anxiety disorder, unspecified
CPT/HCPCS: 36415; 71010; 80053; 82948; 83880; 84484; 85025; 85378; 85610; 85730; 93005; 96360; 99285; G0378; J7040; J7120

== ENCOUNTER 2016-06-17 13:46 | Emergency (ER) | payer MEDICARE, MEDICAID ==
[2016-06-17 13:46] VITALS: BMI 26.6
[2016-06-17 14:10] VITALS: RESP 18; TEMP 97.5
--- NOTE | 2016-06-17 15:21 | C.PDOC ---
History Of Present Illness 76 year old male with a history of cardiac disease and dementia, presents to the ED with complaints of non-radiating left sided chest pain since this morning. Patient states he did not take his medication. The patient is a poor historian and offers no other information. Denies cough, palpitations, leg pain , or any other complaints at this time. Time Seen by Provider: 06/17/16 14:16 Chief Complaint (Nursing): Chest Pain History Per: Patient History/Exam Limitations: no limitations Onset/Duration Of Symptoms: Hrs Current Symptoms Are (Timing): Still Present Associated Symptoms: denies: Nausea, Dyspnea, Diaphoresis, Syncope Exacerbating Factors: None Alleviating Factors: None Recent travel outside of the [place]: No Past Medical History Reviewed: Historical Data, Nursing Documentation, Vital Signs Vital Signs: Last Vital Signs Temp 97.5 F L 06/17/16 14:09 Pulse 76 06/17/16 15:26 Resp 18 06/17/16 15:26 BP 112/82 06/17/16 15:26 Pulse Ox 99 06/17/16 15:43 - Medical History PMH: Anxiety, Arthritis, Asthma, Back Problems (Chronic Pain), Dementia, Diabetes, Gastritis, HTN, Hypercholesterolemia, Hyperlipidemia Surgical History: Coronary Stent - [facility] Procedures CORONAR ARTERIOGR-2 CATH (12/02/13) LEFT HEART CARDIAC CATH (12/02/13) LT HEART ANGIOCARDIOGRAM (12/02/13) Family History: States: Unknown Family Hx - Social History Hx Tobacco Use: Yes Hx Alcohol Use: No Hx Substance Use: No - Immunization History Hx Tetanus Toxoid Vaccination: No Hx Influenza Vaccination: No Hx Pneumococcal Vaccination: No Review Of Systems Except As Marked, All Systems Reviewed And Found Negative. Constitutional: Negative for: Fever, Chills Cardiovascular: Positive for: Chest Pain. Negative for: Palpitations Respiratory: Negative for: Cough, Shortness of Breath Musculoskeletal: Negative for: Leg Pain Physical Exam - Physical Exam Appears: Non-toxic, No Acute Distress Skin: Normal Color, Warm, Dry, No Rash Head: Atraumatic, Normacephalic Eye(s): bilateral: Normal Inspection Oral Mucosa: Moist Neck: Normal ROM, Supple Chest: Symmetrical, No Deformity Cardiovascular: Rhythm Regular, No Friction Rub, No Murmur Respiratory: Normal Breath Sounds, No Accessory Muscle Use, No Rales, No Rhonchi , No Wheezing Gastrointestinal/Abdominal: Soft, No Tenderness Back: No CVA Tenderness, No Vertebral Tenderness, No Paraspinal Tenderness Extremity: Normal ROM, No Pedal Edema, No Calf Tenderness, No Swelling Neurological/Psych: Oriented x3, Normal Speech Gait: Steady ED Course And Treatment ECG: Interpreted By Me, Viewed By Me ECG Rhythm: Sinus Rhythm ECG Interpretation: Normal Interpretation Of ECG: No ST/T wave changes Rate From EC O2 Sat by Pulse Oximetry: 99 (Room air) Pulse Ox Interpretation: Normal Medical Decision Making Medical Decision Making: Old records reviewed showing the patient was seen on 06/09/16 for similar complaints and was admitted then discharged after observation for chest pain. Case discussed with Dr. Jeronimo who states the patient has dementia and frequently complaints of chest pain. He states that the patient had an admission with cardiac cath which was negative last week, and agreed with plan to discharge. Disposition - Disposition Referrals: Freida Jeronimo MD [Staff Provider] - Disposition: HOME/ ROUTINE Disposition Time: 15:19 Condition: GOOD Additional Instructions: Follow up with the medical doctor within 1-2 days. Return of worsened. Instructions: Chest Pain (ED) Print Language: SLOVAK - Clinical Impression Clinical Impression: Chest pain - PA / PYROMETER OPERATOR / Resident Statement MD/DO has reviewed & agrees with the documentation as recorded. - Scribe Statement The provider has reviewed the documentation as recorded by the Scribe Franco Levy. All medical record entries made by the Scribe were at my direction and personally dictated by me. I have reviewed the chart and agree that the record accurately reflects my personal performance of the history, physical exam, medical decision making, and the department course for this patient. I have also personally directed, reviewed, and agree with the discharge instructions and disposition.
[2016-06-17 15:27] VITALS: BP 112/82; PULSE 76
[2016-06-17 15:34] VITALS: O2SAT 99
== END 2016-06-17 15:33 | disposition home or self-care (01) ==
LOC: C.ER 13:46
DX: R07.89 Other chest pain (principal); Z72.0 Tobacco use

== ENCOUNTER 2016-07-07 20:00 | Emergency (ER) | payer MEDICARE, MEDICAID ==
[2016-07-07 20:00] VITALS: BMI 26.6
--- NOTE | 2016-07-07 20:28 | C.PDOC ---
History Of Present Illness Patient is a 76 y/o male that is brought to the ED by EMS for evaluation of digitally reproducible left shoulder and chest discomfort for the past 2 hours. Patient reports experiencing similar symptoms occasionally, and reports taking Tylenol at home. Otherwise, denies any shortness of breath, palpitations, lightheadedness, diaphoresis, n/v/d, fever, trauma, fall, or any other associated symptoms at this time. Time Seen by Provider: 07/07/16 20:08 Chief Complaint (Nursing): Medical Clearance History Per: Patient History/Exam Limitations: no limitations Onset/Duration Of Symptoms: Hrs (2) Current Symptoms Are (Timing): Still Present Recent travel outside of the [place]: No Additional History Per: EMS Past Medical History Reviewed: Historical Data, Nursing Documentation, Vital Signs Vital Signs: Last Vital Signs Temp 97.7 F 07/07/16 22:00 Pulse 70 07/07/16 22:00 Resp 18 07/07/16 22:00 BP 162/85 H 07/07/16 22:00 Pulse Ox 100 07/07/16 22:00 - Medical History PMH: Anxiety, Arthritis, Asthma, Back Problems (Chronic Pain), Dementia, Diabetes, Gastritis, HTN, Hypercholesterolemia, Hyperlipidemia Denies: Chronic Kidney Disease Surgical History: Coronary Stent - [facility] Procedures CORONAR ARTERIOGR-2 CATH (12/02/13) LEFT HEART CARDIAC CATH (12/02/13) LT HEART ANGIOCARDIOGRAM (12/02/13) Family History: States: Unknown Family Hx - Social History Hx Tobacco Use: Yes Hx Alcohol Use: No Hx Substance Use: No - Immunization History Hx Tetanus Toxoid Vaccination: No Hx Influenza Vaccination: No Hx Pneumococcal Vaccination: No Review Of Systems Except As Marked, All Systems Reviewed And Found Negative. Constitutional: Negative for: Fever, Chills Cardiovascular: Positive for: Chest Pain (chest wall discomfort). Negative for : Palpitations, Edema, Light Headedness Respiratory: Negative for: Shortness of Breath Gastrointestinal: Negative for: Nausea, Vomiting, Abdominal Pain Musculoskeletal: Positive for: Shoulder Pain (left) Neurological: Negative for: Weakness, Numbness, Dizziness Physical Exam - Physical Exam Appears: Non-toxic, No Acute Distress Skin: Normal Color, Warm, Dry Head: Atraumatic, Normacephalic Eye(s): bilateral: Normal Inspection, EOMI Neck: Normal ROM, Supple Chest: Symmetrical, Tenderness (anterior chest wall) Cardiovascular: Rhythm Regular, No Murmur Respiratory: Normal Breath Sounds, No Rales, No Rhonchi, No Wheezing Gastrointestinal/Abdominal: Soft, No Tenderness Extremity: Normal ROM, Tenderness (superior aspect of left shoulder), Capillary Refill (<2 sec.), No Deformity, No Swelling Extremity: Bilateral: Atraumatic, Normal Color And Temperature Neurological/Psych: Oriented x3, Normal Speech, Normal Cognition, Normal Motor, Normal Sensation ED Course And Treatment - Laboratory Results Result Diagrams: 07/07/16 21:27 07/07/16 21:27 Lab Interpretation: Normal (trop neg.) ECG: Interpreted By Me, Viewed By Me ECG Rhythm: Sinus Rhythm ECG Interpretation: No Acute Changes Rate From EC (bpm) O2 Sat by Pulse Oximetry: 100 (on RA) Pulse Ox Interpretation: Normal - Radiology CXR: Interpreted by Me CXR Interpretation: Yes: No Acute Disease Progress Note: motrin 600 PO Reevaluation Time: 22:10 Reassessment Condition: Improved Medical Decision Making Medical Decision Making: digitally and positionally reproducable musculoskeletal discomfort of anterior chest wall and L shoulder auperior aspect, no acute fall/injuries poorly controlled DM otherwise labs wnl ? Dementia influencing pt's motivation as he presents frequently with similar mild complaints. LOW susp of cardiac etiology- ok to f/u with PMD Disposition Doctor Will See Patient In The: Office Counseled Patient/Family Regarding: Studies Performed, Diagnosis - Disposition Referrals: Freida Jeronimo MD [Primary Care Provider] - Disposition: HOME/ ROUTINE Disposition Time: 22:12 Condition: GOOD - Clinical Impression Clinical Impression: Chest wall discomfort, Shoulder pain, left, Hyperglycemia without ketosis - Scribe Statement The provider has reviewed the documentation as recorded by the Lester Baxter Provider Attestation: All medical record entries made by the Lester were at my direction and personally dictated by me. I have reviewed the chart and agree that the record accurately reflects my personal performance of the history, physical exam, medical decision making, and the department course for this patient. I have also personally directed, reviewed, and agree with the discharge instructions and disposition.
[2016-07-07 21:34] LABS: BASO # 0.1 K/uL (0.0-0.2); BASO % 1.1 % (0.0-2.0); EOS # 0.1 K/uL (0.0-0.7); EOS % 1.7 % (0.0-4.0); LYMPH # 1.3 K/uL (1.0-4.3); LYMPH % 25.3 % (20.0-40.0); MEAN CORPUSCULAR HEMOGLOBIN 28.4 pg (27.0-31.0); MEAN CORPUSCULAR HGB CONC 33.9 g/dL (33.0-37.0); MEAN PLATELET VOLUME 9.2 fL (7.2-11.7); MONO # 0.5 K/uL (0.0-0.8); MONO % 8.8 % (0.0-10.0); NRBC % 0.1 % (0.0-2.0); RED CELL DISTRIBUTION WIDTH 13.4 % (11.5-14.5); WHITE BLOOD COUNT 5.3 K/uL (4.8-10.8)
[2016-07-07 21:38] LABS: CHLORIDE 91 mmol/L (98-107)
[2016-07-07 21:39] LABS: POTASSIUM 4.1 mmol/L (3.6-5.2); SODIUM 131 mmol/L (132-148)
[2016-07-07 21:41] LABS: ALB/GLOB RATIO 1.3 (1.0-2.1); ALKALINE PHOSPHATASE 101 U/L (38-126); ALT/SGPT 22 U/L (21-72); AST/SGOT 19 U/L (17-59); BILIRUBIN,TOTAL 0.7 mg/dL (0.2-1.3); BLOOD UREA NITROGEN 15 mg/dL (9-20); CALCIUM 9.3 mg/dl (8.6-10.4); CARBON DIOXIDE 26 mmol/L (22-30); GFR AFRICAN-AMERICAN > 60; TOTAL PROTEIN 7.8 g/dL (6.3-8.3)
[2016-07-07 21:44] LABS: GLUCOSE,RANDOM 412 mg/dL (75-110)
[2016-07-07 22:04] VITALS: RESP 18
[2016-07-07] MEDS ORDERED: (Novolin R) Insulin Human Regular 100 units/ml vial IV STA (22:08)
[2016-07-07] MEDS ORDERED: (Novolin R) Insulin Human Regular 100 units/ml vial ONE (22:18)
[2016-07-07 23:13] VITALS: BP 167/83; PULSE 84; TEMP 97.6; O2SAT 97
--- NOTE | 2016-07-08 07:43 | RAD ---
PROCEDURE: CHEST RADIOGRAPH, 1 VIEW HISTORY: SOB COMPARISON: Comparison is made to the previous study dated 06/09/2016 FINDINGS: LUNGS: No evidence of focal infiltrate or consolidation in the lungs. PLEURA: No pneumothorax or pleural fluid seen. CARDIOVASCULAR: Normal. OSSEOUS STRUCTURES: No significant abnormalities. VISUALIZED UPPER ABDOMEN: Normal. OTHER FINDINGS: Small punctate high densities are again noted overlying the right chest. IMPRESSION: No significant interval change since the previous study noted.
--- NOTE | 2016-07-11 10:07 | CARD ---
APPROVED REPORT EKG Measurement Heart [id number] ID [id number] <Conclusion> Normal sinus rhythm Normal ECG
== END 2016-07-07 23:12 | disposition home or self-care (01) ==
LOC: SUPCPDRO 20:00 → C.ER 20:00
DX: R07.89 Other chest pain (principal); M25.512 Pain in left shoulder; E11.65 Type 2 diabetes mellitus with hyperglycemia

== ENCOUNTER 2016-07-17 13:15 | Emergency (ER) | payer MEDICARE, MEDICAID ==
[2016-07-17 13:15] VITALS: BMI 26.6
[2016-07-17] MEDS ORDERED: Aspirin 325 mg EC Tablets PO STA (13:59)
[2016-07-17] MEDS ORDERED: Sodium Chloride 0.9% 1,000 ML IV ONE (13:59)
[2016-07-17] MEDS ORDERED: (Novolin R) Insulin Human Regular 100 units/ml vial IV STA (14:02)
--- NOTE | 2016-07-17 14:03 | C.PDOC ---
History Of Present Illness 76 year old patient, with a past medical history of hypertension, hypercholesterolemia, hyperlipidemia, diabetes, and gastritis, presents to the ED complaining of intermittent chest pain since this morning. Patient became concerned which prompted his visit for further evaluation. Patient states the chest pain is now resolved. He reports he did not recently check his blood sugar. Patient denies nausea, vomiting, abdominal pain, shortness of breath, numbness or weakness. PMD: Dr. Jeronimo Time Seen by Provider: 07/17/16 13:44 Chief Complaint (Nursing): Chest Pain History Per: Patient History/Exam Limitations: no limitations, language barrier (translated from Ukrainian by HOA Rea) Onset/Duration Of Symptoms: Intermittent Episodes (this morning) Current Symptoms Are (Timing): Gone Context: Other Severity: None Pain Scale Rating Of: 0 Quality: "Pain" Exacerbating Factors: None Alleviating Factors: None Recent travel outside of the [place]: No Past Medical History Reviewed: Historical Data, Nursing Documentation, Vital Signs Vital Signs: Last Vital Signs Temp 98.2 F 07/17/16 15:54 Pulse 90 07/17/16 15:54 Resp 15 07/17/16 15:54 BP 157/79 H 07/17/16 15:54 Pulse Ox 96 07/17/16 17:08 - Medical History PMH: Anxiety, Arthritis, Asthma, Back Problems (Chronic Pain), Dementia, Diabetes, Gastritis, HTN, Hypercholesterolemia, Hyperlipidemia Surgical History: Coronary Stent - [facility] Procedures CORONAR ARTERIOGR-2 CATH (12/02/13) LEFT HEART CARDIAC CATH (12/02/13) LT HEART ANGIOCARDIOGRAM (12/02/13) Family History: States: Unknown Family Hx - Social History Hx Tobacco Use: Yes Hx Alcohol Use: No Hx Substance Use: No - Immunization History Hx Tetanus Toxoid Vaccination: No Hx Influenza Vaccination: No Hx Pneumococcal Vaccination: No Review Of Systems Except As Marked, All Systems Reviewed And Found Negative. Cardiovascular: Positive for: Chest Pain Respiratory: Negative for: Shortness of Breath Gastrointestinal: Negative for: Nausea, Vomiting, Abdominal Pain Neurological: Negative for: Weakness, Numbness Physical Exam - Physical Exam Appears: Non-toxic, No Acute Distress Skin: Warm, Dry Head: Atraumatic, Normacephalic Oral Mucosa: Moist Neck: Normal ROM, Supple Chest: Symmetrical, No Tenderness Cardiovascular: Rhythm Regular Respiratory: Normal Breath Sounds, No Rales, No Rhonchi, No Wheezing Gastrointestinal/Abdominal: Soft, No Tenderness Back: Normal Inspection, No CVA Tenderness Extremity: Normal ROM Neurological/Psych: Oriented x3, Normal Speech, Normal Motor, Normal Sensation ED Course And Treatment - Laboratory Results Result Diagrams: 07/17/16 14:11 07/17/16 14:11 Lab Interpretation: Abnormal (hyperglycemia) ECG: Interpreted By Me, Viewed By Me ECG Rhythm: Sinus Rhythm ECG Interpretation: Normal Interpretation Of ECG: left axis deviation Rate From EC (bpm) O2 Sat by Pulse Oximetry: 96 (room air) Pulse Ox Interpretation: Normal - Radiology CXR: Interpreted by Me, Viewed By Me CXR Interpretation: Yes: No Acute Disease Progress Note: Plan: VBG, EKG, Labs, Chest x-ray, Ecotrin. Progress: Patient's blood work is +hyperglycemia. Insulin and IV fluids were given. Case discussed with Dr. Jeronimo who is aware of the plan. He states patient had an angiogram done about 2-3 months ago and it was within normal limits. He advised to discharge patient and he will follow up with the patient tomorrow in his office. Reassessment Condition: Improved Disposition Counseled Patient/Family Regarding: Studies Performed, Diagnosis, Need For Followup - Disposition Referrals: Freida Jeronimo MD [Staff Provider] - Disposition: HOME/ ROUTINE Disposition Time: 15:43 Condition: STABLE Additional Instructions: FOLLOW UP WITH DR. JERONIMO TOMORROW WITHOUT FAIL. IF SYMPTOMS GET WORSE OR ANY NEW CONCERNING SYMPTOMS DEVELOP RETURN TO ED. 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 - Scribe Statement The provider has reviewed the documentation as recorded by the Scribe Rhonda Baxter All medical record entries made by the Scribe were at my direction and personally dictated by me. I have reviewed the chart and agree that the record accurately reflects my personal performance of the history, physical exam, medical decision making, and the department course for this patient. I have also personally directed, reviewed, and agree with the discharge instructions and disposition.
[2016-07-17 14:04] VITALS: O2SAT 96
[2016-07-17] MEDS ORDERED: Aspirin 325 mg EC Tablets PO ONE (14:09)
[2016-07-17] MEDS ORDERED: (Novolin R) Insulin Human Regular 100 units/ml vial ONE (14:09)
[2016-07-17 14:20] LABS: BASO % 1.2 % (0.0-2.0); EOS # 0.1 K/uL (0.0-0.7); EOS % 1.5 % (0.0-4.0); HEMATOCRIT 41.9 % (35.0-51.0); LYMPH % 23.8 % (20.0-40.0); MEAN CELL VOLUME 84.3 fL (80.0-94.0); MEAN CORPUSCULAR HGB CONC 33.3 g/dL (33.0-37.0); MONO # 0.3 K/uL (0.0-0.8); MONO % 7.7 % (0.0-10.0); NRBC % 0.1 % (0.0-2.0); RED CELL DISTRIBUTION WIDTH 13.1 % (11.5-14.5); WHITE BLOOD COUNT 4.1 K/uL (4.8-10.8)
[2016-07-17 14:27] LABS: VENOUS BLOOD GAS BASE EXCESS -0.4 mmol/L (0.0-2.0); VENOUS BLOOD GAS PCO2 42 mmHg (40-60); VENOUS BLOOD PH 7.38 (7.32-7.43)
[2016-07-17 14:29] LABS: PARTIAL THROMBOPLASTIN TIME 26 SECONDS (21-34)
[2016-07-17 14:30] LABS: CHLORIDE 95 mmol/L (98-107); SODIUM 131 mmol/L (132-148)
[2016-07-17 14:31] LABS: POTASSIUM 4.2 mmol/L (3.6-5.2)
[2016-07-17 14:33] LABS: ALB/GLOB RATIO 1.3 (1.0-2.1); ALKALINE PHOSPHATASE 97 U/L (38-126); ALT/SGPT 24 U/L (21-72); AST/SGOT 20 U/L (17-59); BILIRUBIN,TOTAL 0.7 mg/dL (0.2-1.3); BLOOD UREA NITROGEN 20 mg/dL (9-20); CARBON DIOXIDE 25 mmol/L (22-30); GFR AFRICAN-AMERICAN > 60; TOTAL PROTEIN 7.1 g/dL (6.3-8.3)
[2016-07-17 14:34] LABS: CALCIUM 8.8 mg/dl (8.6-10.4)
[2016-07-17 14:40] LABS: GLUCOSE,RANDOM 562 mg/dL (75-110)
[2016-07-17 15:55] VITALS: BP 157/79; PULSE 90; RESP 15; TEMP 98.2
--- NOTE | 2016-07-17 16:16 | RAD ---
PROCEDURE: CHEST RADIOGRAPH, 1 VIEW HISTORY: chest pain COMPARISON: 07/07/2016 FINDINGS: LUNGS: Punctate radiopaque metallic densities project over the right navya thorax, unchanged. Linear atelectasis at the right lung base. Mild venous congestion. Biapical pleural thickening with upper lobe granulomatous changes. PLEURA: As above. CARDIOVASCULAR: Normal. OSSEOUS STRUCTURES: No significant abnormalities. VISUALIZED UPPER ABDOMEN: Normal. OTHER FINDINGS: None. IMPRESSION: Punctate radiopaque metallic densities project over the right navya thorax, unchanged. Linear atelectasis at the right lung base. Mild venous congestion. Biapical pleural thickening with upper lobe granulomatous changes.
--- NOTE | 2016-07-18 14:32 | CARD ---
APPROVED REPORT EKG Measurement Heart [id number] <Conclusion> Normal sinus rhythm Left axis deviation Abnormal ECG
== END 2016-07-17 16:18 | disposition home or self-care (01) ==
LOC: C.ER 13:15
DX: E11.65 Type 2 diabetes mellitus with hyperglycemia (principal); R07.9 Chest pain, unspecified
CPT/HCPCS: 71010; 80053; 82009; 82803; 82948; 83880; 84484; 85025; 85378; 85610; 85730; 93005; 96360; 99285; J7040

== ENCOUNTER 2016-08-06 13:15 | Emergency (ER) | payer MEDICARE, MEDICAID ==
[2016-08-06 13:16] VITALS: BMI 26.6
[2016-08-06 13:36] VITALS: TEMP 98
[2016-08-06 14:16] LABS: BASO # 0.1 K/uL (0.0-0.2); BASO % 1.5 % (0.0-2.0); EOS # 0.1 K/uL (0.0-0.7); EOS % 1.6 % (0.0-4.0); HEMATOCRIT 41.4 % (35.0-51.0); LYMPH % 21.2 % (20.0-40.0); MEAN CELL VOLUME 83.9 fL (80.0-94.0); MEAN CORPUSCULAR HEMOGLOBIN 28.3 pg (27.0-31.0); MEAN CORPUSCULAR HGB CONC 33.7 g/dL (33.0-37.0); MEAN PLATELET VOLUME 8.8 fL (7.2-11.7); MONO # 0.4 K/uL (0.0-0.8); MONO % 9.2 % (0.0-10.0); RED CELL DISTRIBUTION WIDTH 13.2 % (11.5-14.5); WHITE BLOOD COUNT 4.7 K/uL (4.8-10.8)
[2016-08-06 14:23] VITALS: BP 151/89; PULSE 72; RESP 18; O2SAT 95
[2016-08-06 14:23] LABS: CHLORIDE 98 mmol/L (98-107)
[2016-08-06 14:24] LABS: SODIUM 133 mmol/L (132-148)
[2016-08-06 14:26] LABS: CARBON DIOXIDE 25 mmol/L (22-30); GFR AFRICAN-AMERICAN > 60
[2016-08-06 14:27] LABS: ALB/GLOB RATIO 1.3 (1.0-2.1); ALKALINE PHOSPHATASE 103 U/L (38-126); ALT/SGPT 23 U/L (21-72); AST/SGOT 29 U/L (17-59); BLOOD UREA NITROGEN 16 mg/dL (9-20); CALCIUM 9.1 mg/dl (8.6-10.4); TOTAL PROTEIN 7.4 g/dL (6.3-8.3)
--- NOTE | 2016-08-06 14:32 | RAD ---
HISTORY: cp COMPARISON: 07/17/2016 FINDINGS: LUNGS: Mild venous congestion. Mild consolidative changes in the right infrahilar region and right lung base. Punctate radiopaque densities again project over the right navya thorax, possibly shrapnel. PLEURA: No significant pleural effusion identified, no pneumothorax apparent. CARDIOVASCULAR: Normal. OSSEOUS STRUCTURES: No significant abnormalities. VISUALIZED UPPER ABDOMEN: Normal. OTHER FINDINGS: None. IMPRESSION: Mild venous congestion. Mild consolidative changes in the right infrahilar region and right lung base. Punctate radiopaque densities again project over the right navya thorax, possibly shrapnel.
[2016-08-06 14:37] LABS: POTASSIUM 4.4 mmol/L (3.6-5.2)
[2016-08-06 14:39] LABS: GLUCOSE,RANDOM 412 mg/dL (75-110)
--- NOTE | 2016-08-06 14:45 | C.PDOC ---
History Of Present Illness 76-year-old male, presents to the emergency department with complaints of chest pain x3 days that is associated with shortness of breath and cough. Patient denies fevers, nausea/vomiting, or any other associated symptoms. No other complaints at this time. Time Seen by Provider: 08/06/16 13:38 Chief Complaint (Nursing): Chest Pain History Per: Patient History/Exam Limitations: no limitations Onset/Duration Of Symptoms: Days (3) Current Symptoms Are (Timing): Still Present Severity: Moderate Past Medical History Reviewed: Historical Data, Nursing Documentation, Vital Signs Vital Signs: Last Vital Signs Temp 98.0 F 08/06/16 13:32 Pulse 72 08/06/16 14:23 Resp 18 08/06/16 14:23 BP 151/89 H 08/06/16 14:23 Pulse Ox 95 08/06/16 15:36 - Medical History PMH: Anxiety, Arthritis, Asthma, Back Problems (Chronic Pain), Dementia, Diabetes, Gastritis, HTN, Hypercholesterolemia, Hyperlipidemia Denies: Chronic Kidney Disease Surgical History: Coronary Stent - [facility] Procedures CORONAR ARTERIOGR-2 CATH (12/02/13) LEFT HEART CARDIAC CATH (12/02/13) LT HEART ANGIOCARDIOGRAM (12/02/13) Family History: States: No Known Family Hx - Social History Hx Tobacco Use: Yes Hx Alcohol Use: No Hx Substance Use: No - Immunization History Hx Tetanus Toxoid Vaccination: No Hx Influenza Vaccination: No Hx Pneumococcal Vaccination: No Review Of Systems Except As Marked, All Systems Reviewed And Found Negative. Constitutional: Negative for: Fever, Chills Cardiovascular: Positive for: Chest Pain Respiratory: Positive for: Cough, Shortness of Breath Gastrointestinal: Negative for: Nausea, Vomiting Musculoskeletal: Negative for: Back Pain Neurological: Negative for: Weakness, Numbness, Headache, Dizziness Physical Exam - Physical Exam Additional Physical Exam Comments: Constitutional: No acute distress. Head: Normocephalic. Atraumatic. Eyes: PERRL. EOMI ENT: Moist mucous membranes. Neck: Supple. Cardiovascular: Regular rate. Radial pulses 2+ bilaterally. Chest: No tenderness. Respiratory: Clear to auscultation bilaterally. GI: Soft. Nontender. Nondistended. Back: No CVA tenderness. No midline tenderness. Musculoskeletal: No tenderness or swelling of extremities. Skin: No rash. Neurologic: Alert, no focal deficit. ED Course And Treatment - Laboratory Results Result Diagrams: 08/06/16 14:12 08/06/16 14:12 O2 Sat by Pulse Oximetry: 95 Medical Decision Making Medical Decision Making: Impression 76y/o M comes in w/ CP x3 days. Plan: * BNP, CK-MB, CMP, C Phos, Trop I * CBC * Chest X-Ray * Aspirin * Reassess and Disposition FINDINGS: LUNGS: Mild venous congestion. Mild consolidative changes in the right infrahilar region and right lung base. Punctate radiopaque densities again project over the right navya thorax, possibly shrapnel. PLEURA: No significant pleural effusion identified, no pneumothorax apparent. CARDIOVASCULAR: Normal. OSSEOUS STRUCTURES: No significant abnormalities. VISUALIZED UPPER ABDOMEN: Normal. OTHER FINDINGS: None. IMPRESSION: Mild venous congestion. Mild consolidative changes in the right infrahilar region and right lung base. Punctate radiopaque densities again project over the right navya thorax, possibly shrapnel. Patient in no acute distress. No hypoxia, tachypnea, fever, or leukocytosis. Labs unremarkable. Baseline hyperglycemia with normal CO2. Discussed case with Dr. Jeronimo who states patient can follow up with him in office. Will discharge on Zpack, return to ER for worsening pain, fever, dyspnea. Disposition - Disposition Referrals: Freida Jeronimo MD [Staff Provider] - Disposition: HOME/ ROUTINE Disposition Time: 15:36 Condition: STABLE Prescriptions: Azithromycin [Zithromax] 2 tab PO DAILY #6 tab Instructions: Acute Cough (ED) - POA Core Measure Indicators: Chest Pain - Clinical Impression Clinical Impression: Chest pain, Cough - Scribe Statement The provider has reviewed the documentation as recorded by the Lester Barr All medical record entries made by the Jebibkelsi were at my direction and personally dictated by me. I have reviewed the chart and agree that the record accurately reflects my personal performance of the history, physical exam, medical decision making, and the department course for this patient. I have also personally directed, reviewed, and agree with the discharge instructions and disposition.
== END 2016-08-06 16:07 | disposition home or self-care (01) ==
LOC: C.ER 13:15
DX: R07.9 Chest pain, unspecified (principal); R05 Cough; I10 Essential (primary) hypertension; E78.00 Pure hypercholesterolemia, unspecified; Z87.891 Personal history of nicotine dependence

== ENCOUNTER 2016-08-09 13:30 | Emergency (ER) | payer MEDICARE, MEDICAID ==
[2016-08-09 13:30] VITALS: BMI 26.6
[2016-08-09] MEDS ORDERED: Sodium Chloride 0.9% 1,000 ML IV ONE (14:48)
[2016-08-09 15:03] LABS: EOS # 0.1 K/uL (0.0-0.7); EOS % 1.6 % (0.0-4.0); LYMPH # 0.9 K/uL (1.0-4.3); LYMPH % 19.1 % (20.0-40.0); MEAN CELL VOLUME 84.5 fL (80.0-94.0); MEAN CORPUSCULAR HEMOGLOBIN 27.8 pg (27.0-31.0); MEAN PLATELET VOLUME 8.9 fL (7.2-11.7); MONO # 0.4 K/uL (0.0-0.8); RED CELL DISTRIBUTION WIDTH 13.6 % (11.5-14.5); WHITE BLOOD COUNT 4.5 K/uL (4.8-10.8)
[2016-08-09 15:12] LABS: CHLORIDE 96 mmol/L (98-107)
[2016-08-09 15:13] LABS: POTASSIUM 3.9 mmol/L (3.6-5.2); SODIUM 134 mmol/L (132-148)
[2016-08-09 15:15] LABS: AST/SGOT 19 U/L (17-59); BILIRUBIN,TOTAL 0.7 mg/dL (0.2-1.3); CARBON DIOXIDE 26 mmol/L (22-30); GFR AFRICAN-AMERICAN > 60
[2016-08-09 15:16] LABS: ALB/GLOB RATIO 1.5 (1.0-2.1); ALKALINE PHOSPHATASE 107 U/L (38-126); ALT/SGPT 27 U/L (21-72); BLOOD UREA NITROGEN 18 mg/dL (9-20); CALCIUM 8.8 mg/dl (8.6-10.4); GLUCOSE,RANDOM 376 mg/dL (75-110); TOTAL PROTEIN 7.6 g/dL (6.3-8.3)
--- NOTE | 2016-08-09 15:49 | C.PDOC ---
History Of Present Illness 76 y/o male, with history of dementia, presents to ED with complaint of chest pain and dizziness. Patient is a poor historian. Time Seen by Provider: 08/09/16 14:42 Chief Complaint (Nursing): Dizziness/Lightheaded History Per: Patient History/Exam Limitations: no limitations Past Medical History Reviewed: Historical Data, Nursing Documentation, Vital Signs Vital Signs: Last Vital Signs Temp 97.9 F 08/09/16 16:47 Pulse 76 08/09/16 16:47 Resp 18 08/09/16 16:47 BP 143/82 08/09/16 16:47 Pulse Ox 98 08/09/16 16:47 - Medical History PMH: Anxiety, Arthritis, Asthma, Back Problems (Chronic Pain), Dementia, Diabetes, Gastritis, HTN, Hypercholesterolemia, Hyperlipidemia Surgical History: Coronary Stent - [facility] Procedures CORONAR ARTERIOGR-2 CATH (12/02/13) LEFT HEART CARDIAC CATH (12/02/13) LT HEART ANGIOCARDIOGRAM (12/02/13) Family History: States: No Known Family Hx - Social History Hx Tobacco Use: Yes Hx Alcohol Use: No Hx Substance Use: No - Immunization History Hx Tetanus Toxoid Vaccination: No Hx Influenza Vaccination: No Hx Pneumococcal Vaccination: No Review Of Systems Review Of Systems: ROS cannot be obtained secondary to pt's inabilty to answer questions. (poor historian) Physical Exam - Physical Exam Appears: Non-toxic, No Acute Distress Skin: Normal Color, Warm, Dry, No Rash Head: Atraumatic, Normacephalic Eye(s): bilateral: Normal Inspection Oral Mucosa: Moist Neck: Normal ROM, Supple Chest: Symmetrical Cardiovascular: Rhythm Regular, No Friction Rub, No Murmur Respiratory: Normal Breath Sounds, No Rales, No Rhonchi, No Wheezing Gastrointestinal/Abdominal: Soft, No Tenderness Back: Normal Inspection Extremity: Normal ROM, Capillary Refill (< 2 sec.) Pulses: Left Dorsalis Pedis: Normal, Right Dorsalis Pedis: Normal Neurological/Psych: Normal Speech, Normal Cranial Nerves, Normal Motor, Other ( Oriented x 2 at baseline) Gait: Steady ED Course And Treatment - Laboratory Results Result Diagrams: 08/09/16 14:59 08/09/16 14:59 ECG: Interpreted By Wv ECG Rhythm: Sinus Rhythm ECG Interpretation: Normal Rate From EC (RA) O2 Sat by Pulse Oximetry: 95 Pulse Ox Interpretation: Normal - Radiology CXR: Interpreted by Me CXR Interpretation: Yes: No Acute Disease Progress Note: Treated with aspirin. CxR and EKG ordered and reviewed, showing no acute changes. On re-exam, lungs are CTA, heart is RRR, abdomen is soft, non- tender and patient is tolerating PO well. Ambulatory in the ED with steady gait. Follow up with Dr. Jeronimo within 1-2 days. Return if worsened. Disposition - Disposition Referrals: Freida Jeronimo MD [Staff Provider] - Disposition: HOME/ ROUTINE Disposition Time: 16:26 Condition: GOOD Additional Instructions: Follow up with the medical doctor within 1-2 days. Return if worsened. 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 - Scribe Statement The provider has reviewed the documentation as recorded by the Scribkelsi Huerta All medical record entries made by the Jebibkelsi were at my direction and personally dictated by me. I have reviewed the chart and agree that the record accurately reflects my personal performance of the history, physical exam, medical decision making, and the department course for this patient. I have also personally directed, reviewed, and agree with the discharge instructions and disposition.
[2016-08-09 16:47] VITALS: BP 143/82; PULSE 76; RESP 18; TEMP 97.9
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
[2016-08-11 15:51] VITALS: O2SAT 95
== END 2016-08-09 17:20 | disposition home or self-care (01) ==
LOC: C.ER 13:30
DX: R42 Dizziness and giddiness (principal); R07.9 Chest pain, unspecified
CPT/HCPCS: 71010; 80053; 83880; 84484; 85025; 99285; J7040

== ENCOUNTER 2016-08-16 17:30 | Emergency (ER) | payer MEDICARE, MEDICAID ==
[2016-08-16 17:31] VITALS: BMI 26.6
--- NOTE | 2016-08-16 19:42 | C.PDOC ---
History Of Present Illness 76 y/o M c frequent visits to this ER wishes to go home, states he feels well and strong. I asked him why he came to the ER today and he states he does not remember. I asked him if he had chest pain, and he said no. He did have a triage EKG which shows NSR 80 bpm, no St/T wave changes. He had a cardiac cath in May which was negative. Poor historian. Time Seen by Provider: 08/16/16 19:32 Chief Complaint (Nursing): Chest Pain Past Medical History Vital Signs: Last Vital Signs Temp 97.5 F L 08/16/16 17:34 Pulse 90 08/16/16 17:34 Resp 20 08/16/16 17:34 BP 116/72 08/16/16 17:34 Pulse Ox 98 08/16/16 17:34 - Medical History PMH: Anxiety, Arthritis, Asthma, Back Problems (Chronic Pain), Dementia, Diabetes, Gastritis, HTN, Hypercholesterolemia, Hyperlipidemia Denies: Chronic Kidney Disease Surgical History: Coronary Stent - [facility] Procedures CORONAR ARTERIOGR-2 CATH (12/02/13) LEFT HEART CARDIAC CATH (12/02/13) LT HEART ANGIOCARDIOGRAM (12/02/13) Family History: States: Unknown Family Hx - Social History Hx Tobacco Use: Yes Hx Alcohol Use: No Hx Substance Use: No - Immunization History Hx Tetanus Toxoid Vaccination: No Hx Influenza Vaccination: No Hx Pneumococcal Vaccination: No Review Of Systems Except As Marked, All Systems Reviewed And Found Negative. Constitutional: Negative for: Fever Cardiovascular: Negative for: Chest Pain Physical Exam - Physical Exam Appears: No Acute Distress Skin: Normal Color Head: Atraumatic, Normacephalic Oral Mucosa: Moist Neck: Normal ROM Cardiovascular: Rhythm Regular Respiratory: Normal Breath Sounds Gastrointestinal/Abdominal: Soft, No Tenderness Back: No CVA Tenderness Extremity: No Tenderness, No Swelling Pulses: Left Radial: Normal, Right Radial: Normal Gait: Steady ED Course And Treatment O2 Sat by Pulse Oximetry: 98 Disposition - Disposition Disposition: HOME/ ROUTINE Disposition Time: 19:39 Condition: STABLE - Clinical Impression Clinical Impression: Normal ECG
[2016-08-16 19:47] VITALS: BP 120/68; PULSE 78; RESP 18; TEMP 98.2; O2SAT 97
== END 2016-08-16 19:45 | disposition home or self-care (01) ==
LOC: C.ER 17:30
DX: Z03.89 Encounter for observation for other suspected diseases and conditions ruled out (principal); I10 Essential (primary) hypertension; E11.9 Type 2 diabetes mellitus without complications; E78.00 Pure hypercholesterolemia, unspecified; E78.5 Hyperlipidemia, unspecified; M19.90 Unspecified osteoarthritis, unspecified site; F03.90 Unspecified dementia, unspecified severity, without behavioral disturbance, psychotic disturbance, mood disturbance, and anxiety

== ENCOUNTER 2016-08-17 12:23 | Inpatient (IN) | payer MEDICARE, MEDICAID ==
[2016-08-17 12:24] VITALS: BMI 26.6
[2016-08-17] MEDS ORDERED: Aspirin 325 mg EC Tablets PO STA (12:45)
[2016-08-17] MEDS ORDERED: Aspirin 325 mg EC Tablets PO ONE (12:57)
--- NOTE | 2016-08-17 13:05 | RAD ---
PROCEDURE: CHEST RADIOGRAPH, 1 VIEW HISTORY: chest pain COMPARISON: 08/09/2016 FINDINGS: LUNGS: There is minimal stable blunting of the right costophrenic angle. There is minor improvement in aeration at the lung bases from prior study although minor bibasilar volume loss remains. Radiopaque foreign bodies are seen overlying the right navya thorax. PLEURA: No pneumothorax or pleural fluid seen. CARDIOVASCULAR: Normal. OSSEOUS STRUCTURES: No significant abnormalities. VISUALIZED UPPER ABDOMEN: Normal. OTHER FINDINGS: None. IMPRESSION: Minor improvement aeration although some mild residual bibasilar volume loss and minimal blunting of right costophrenic angle remain. No pneumothorax. No new infiltrate.
[2016-08-17 13:13] LABS: BASO # 0.1 K/uL (0.0-0.2); BASO % 1.5 % (0.0-2.0); EOS # 0.1 K/uL (0.0-0.7); HEMATOCRIT 44.6 % (35.0-51.0); LYMPH % 19.4 % (20.0-40.0); MEAN CELL VOLUME 84.2 fL (80.0-94.0); MEAN CORPUSCULAR HEMOGLOBIN 28.2 pg (27.0-31.0); MEAN CORPUSCULAR HGB CONC 33.6 g/dL (33.0-37.0); MEAN PLATELET VOLUME 8.9 fL (7.2-11.7); MONO # 0.5 K/uL (0.0-0.8); NRBC % 0.1 % (0.0-2.0); RED CELL DISTRIBUTION WIDTH 13.1 % (11.5-14.5); WHITE BLOOD COUNT 5.1 K/uL (4.8-10.8)
[2016-08-17 13:20] LABS: CHLORIDE 94 mmol/L (98-107)
[2016-08-17 13:21] LABS: SODIUM 132 mmol/L (132-148)
[2016-08-17 13:23] LABS: ALB/GLOB RATIO 1.1 (1.0-2.1); ALKALINE PHOSPHATASE 127 U/L (38-126); ALT/SGPT 25 U/L (21-72); AST/SGOT 18 U/L (17-59); BILIRUBIN,TOTAL 0.7 mg/dL (0.2-1.3); BLOOD UREA NITROGEN 17 mg/dL (9-20); CARBON DIOXIDE 25 mmol/L (22-30); GFR AFRICAN-AMERICAN > 60; TOTAL PROTEIN 7.4 g/dL (6.3-8.3)
[2016-08-17 13:29] LABS: POTASSIUM 4.1 mmol/L (3.6-5.2)
[2016-08-17 13:30] LABS: GLUCOSE,RANDOM 448 mg/dL (75-110)
--- NOTE | 2016-08-17 13:40 | C.PDOC ---
History Of Present Illness A 76 y/o male who is a poor historian c/o chest pain for an unknown amount of time. Pt has multiple ER for same pain. Pt unable to describe the pain. PT denies SOB, fever, chills, N/V/D, leg pain, diaphoresis, lightheadedness, or any other complaints. Time Seen by Provider: 08/17/16 12:57 Chief Complaint (Nursing): Chest Pain History Per: Patient History/Exam Limitations: other (Poor historian) Onset/Duration Of Symptoms: Unknown Current Symptoms Are (Timing): Still Present Severity: Mild Quality: "Pain" Additional History Per: Patient Past Medical History Reviewed: Historical Data, Nursing Documentation, Vital Signs Vital Signs: Last Vital Signs Temp 99.3 F 08/17/16 17:19 Pulse 68 08/17/16 17:19 Resp 20 08/17/16 17:19 BP 154/86 H 08/17/16 17:19 Pulse Ox 98 08/17/16 17:19 - Medical History PMH: Anxiety, Arthritis, Asthma, Back Problems (Chronic Pain), Dementia, Diabetes, Gastritis, HTN, Hypercholesterolemia, Hyperlipidemia Denies: Chronic Kidney Disease Surgical History: Coronary Stent - [facility] Procedures CORONAR ARTERIOGR-2 CATH (12/02/13) LEFT HEART CARDIAC CATH (12/02/13) LT HEART ANGIOCARDIOGRAM (12/02/13) Family History: States: Unknown Family Hx - Social History Hx Tobacco Use: Yes Hx Alcohol Use: No Hx Substance Use: No - Immunization History Hx Tetanus Toxoid Vaccination: No Hx Influenza Vaccination: No Hx Pneumococcal Vaccination: No Review Of Systems Review Of Systems: ROS cannot be obtained secondary to pt's inabilty to answer questions. (Poor historian) Constitutional: Negative for: Fever, Chills, Sweats Cardiovascular: Positive for: Chest Pain. Negative for: Light Headedness Respiratory: Negative for: Shortness of Breath Gastrointestinal: Negative for: Nausea, Vomiting, Diarrhea Musculoskeletal: Negative for: Leg Pain Physical Exam - Physical Exam Appears: Well, Non-toxic, No Acute Distress Skin: Warm, Dry Head: Atraumatic, Normacephalic Eye(s): bilateral: Normal Inspection Oral Mucosa: Moist Chest: Symmetrical Cardiovascular: Rhythm Regular, No Murmur Respiratory: Normal Breath Sounds, No Accessory Muscle Use, No Rales, No Rhonchi , No Wheezing Gastrointestinal/Abdominal: Soft, No Tenderness Neurological/Psych: Oriented x3, Normal Speech, Normal Cognition Gait: Steady ED Course And Treatment - Laboratory Results Result Diagrams: 08/17/16 13:05 08/17/16 13:05 ECG: Interpreted By Me, Viewed By Me ECG Rhythm: Sinus Rhythm Interpretation Of ECG: Normal axis and intervals Rate From EC O2 Sat by Pulse Oximetry: 96 (RA) Pulse Ox Interpretation: Normal Medical Decision Making Medical Decision Making: Impression: A 76 y/o male who is a poor historian c/o chest pain for an unknown amount of time. Plans: EKG Ecotrin IV fluids Insulin Reassess Spoke to Dr. Jeronimo and he reviewed the case. Pt will be admitted to general medical floor for diabetes. Disposition - Disposition Disposition: HOSPITALIZED Disposition Time: 15:15 Condition: STABLE - Clinical Impression Clinical Impression: Hyperglycemia - Scribe Statement The provider has reviewed the documentation as recorded by the Scribe Nicko loja All medical record entries made by the Scribe were at my direction and personally dictated by me. I have reviewed the chart and agree that the record accurately reflects my personal performance of the history, physical exam, medical decision making, and the department course for this patient. I have also personally directed, reviewed, and agree with the discharge instructions and disposition.
[2016-08-17] MEDS ORDERED: (Novolin R) Insulin Human Regular 100 units/ml vial IV ONE (13:42)
[2016-08-17] MEDS ORDERED: (Novolin R) Insulin Human Regular 100 units/ml vial IV STA (13:44)
[2016-08-17] MEDS ORDERED: (Novolin R) Insulin Human Regular 100 units/ml vial ONE (13:59)
[2016-08-17] MEDS: Sodium Chloride 0.9% 1,000 ML IV SCH ×3 (14:07→23:45)
[2016-08-17 17:20] VITALS: RESP 20
[2016-08-17] MEDS ORDERED: Aluminum Hydroxide/Magnesium Hydroxide Susp (30 mL) PO STA (20:21)
[2016-08-17] MEDS: Sodium Chloride 0.45% 1,000 ML IV SCH (20:49)
[2016-08-17] MEDS: Tramadol 25 mg PO PRN (20:50)
[2016-08-17] MEDS: (Novolin R) Insulin Human Regular 100 units/ml vial SC SCH (22:13)
[2016-08-17] MEDS: (Lantus) Insulin Glargine, Recombinant SC SCH (22:14)
[2016-08-18] MEDS: Tramadol 25 mg PO PRN (06:47)
[2016-08-18 07:51] LABS: HEMATOCRIT 42.1 % (35.0-51.0); MEAN CORPUSCULAR HEMOGLOBIN 28.3 pg (27.0-31.0); MEAN CORPUSCULAR HGB CONC 33.7 g/dL (33.0-37.0); MEAN PLATELET VOLUME 8.7 fL (7.2-11.7); RED CELL DISTRIBUTION WIDTH 13.5 % (11.5-14.5); WHITE BLOOD COUNT 7.1 K/uL (4.8-10.8)
[2016-08-18 08:01] LABS: CHLORIDE 97 mmol/L (98-107)
[2016-08-18 08:02] LABS: POTASSIUM 3.8 mmol/L (3.6-5.2); SODIUM 133 mmol/L (132-148)
[2016-08-18 08:04] LABS: ALB/GLOB RATIO 1.1 (1.0-2.1); ALKALINE PHOSPHATASE 116 U/L (38-126); AST/SGOT 18 U/L (17-59); BILIRUBIN,TOTAL 0.6 mg/dL (0.2-1.3); CARBON DIOXIDE 24 mmol/L (22-30); GFR AFRICAN-AMERICAN > 60
[2016-08-18 08:05] LABS: ALT/SGPT 22 U/L (21-72); BLOOD UREA NITROGEN 18 mg/dL (9-20); CALCIUM 8.5 mg/dl (8.6-10.4); GLUCOSE,RANDOM 271 mg/dL (75-110)
[2016-08-18] MEDS: (Novolin R) Insulin Human Regular 100 units/ml vial SC SCH ×4 (08:48→22:07)
[2016-08-18] MEDS: Pantoprazole 40 mg Susp UD PO SCH (09:52)
[2016-08-18] MEDS: Aspirin 325 mg EC Tablets PO SCH (09:52)
[2016-08-18] MEDS: Sodium Chloride 0.45% 1,000 ML IV SCH ×2 (12:02→22:13)
--- NOTE | 2016-08-18 19:12 | CON ---
DATE: 08/18/2016 PSYCHIATRIC CONSULTATION CHIEF COMPLAINT AND REASON FOR CONSULTATION: The patient referred by Dr. Jeronimo. The patient has history of dementia on psych meds and also for competency to decide for his medical affairs. HISTORY OF PRESENT ILLNESS: This is the case of a 76-year-old male with history of dementia and anxiety. The patient was admitted here for chest pain and uncontrolled hyperglycemia. His blood sugar on admission was 453. The patient reports he has been a diabetic for 4 or 5 years and takes medication at home. The patient cannot give much information, but he said he has been taking his medication. The patient is aware that his blood sugar has been elevated and states that he is taking his medicines at home. He also reports that he also has been having increasing memory problems and the patient cannot recall much of the medicines when asked, but he seems to be calm. when seen. The patient referred for competency as the patient has been referred for possible referral to subacute rehab after this admission. The patient when seen today states that he is feeling a little better, a little drowsy and his last blood sugar level was 225. He is not agitated. He said he has trouble sleeping. He also reports that his appetite is okay, but has bouts of anxiety. PAST PSYCHIATRIC HISTORY: History of anxiety and dementia. The patient is currently taking Aricept 10 mg at bedtime and Seroquel 25 mg daily. MEDICAL HISTORY: As stated, history of arthritis, asthma, chronic back pain, diabetes, hypertension, hypercholesterolemia, history of stent placement in the past. DRUG AND ALCOHOL HISTORY: The patient is a smoker. He denies alcohol use. ALLERGIES: THE PATIENT IS ALLERGIC TO MORPHINE. PSYCHOSOCIAL HISTORY: Born and raised in [place]. He said he lives with his . 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 LABORATORY DATA: The patient's initial blood sugar was 453. The last sugar on fingerstick was 225. His creatinine is 0.7, BUN is 18, negative for ketones. VITAL SIGNS: Temperature is 97.6, pulse rate 64, blood pressure is 157/84, respirations 20, oxygen saturation is 95. REVIEW OF SYSTEMS: GENERAL: The patient is alert, verbal, forgetful, not agitated, resting comfortably in bed. Conversing in Lebanese and Finnish. SKIN: No pruritus. HEENT: No headache or dizziness. NECK: Supple. RESPIRATORY: Chest pain. CARDIOVASCULAR: No palpitation. GASTROINTESTINAL: The patient states he has a good appetite. No nausea, vomiting. EXTREMITIES: The patient moving extremities. MUSCULOSKELETAL: Feels weak. NEUROLOGIC: Alert with periods of confusion. GENITOURINARY: No dysuria. MENTAL STATUS EXAMINATION: Elderly male of descent, about 5 feet 7 inches and weighs 150 pounds, oriented x 3. The patient knows he is in the hospital. He knows the date. He is oriented to person but the patient is forgetful, which he acknowledges. Speech is spontaneous. Affect is reactive. Mood is calm. Thought process: Forgetful. Thought content: No overt psychosis. No suicidal or homicidal ideation. Attention and memory seem to be limited. Insight and judgment fair. Impulse control is fair. IMPRESSION: Senile dementia, vascular type with mood changes as well as uncontrolled hyperglycemia as well as history of hypertension, chronic pain syndrome. PLAN AND RECOMMENDATION: The patient seen, meds reviewed. Continue present management. Continue Aricept 10 mg at bedtime. However, we will change his Seroquel; instead of giving it in the morning, we will try to give it at night as Seroquel is very sedating, especially as the patient will be going for subacute rehabilitation. Of note, also the Seroquel can affect blood sugar control. Other medication that the patient is taking includes: The patient is on rosuvastatin, aspirin, metformin 850 mg b.i.d., glipizide 10 mg b.i.d. Januvia 50 mg daily. The patient is on insulin, metoprolol, Neurontin 400 mg t.i.d. as the patient has history of neuropathy, and also Protonix and tramadol. As stated, we will keep him on Aricept and also will change the dosing of Seroquel to 25 mg at bedtime. Continue treatment plan as outlined and also monitor his blood sugar level. Psych-gaytan, the patient still has decisional capacity to manage his affairs. The patient states that he is willing to go for subacute rehab once he is medically cleared from the hospital. Fabio Bustamante MD cc: [id number] TT: 08/18/2016 19:11:04 Confirmation # [id number] Dictation # [id number] ln [facility]
--- NOTE | 2016-08-18 19:15 | CP.PCM.HP ---
History of Present Illness - History of Present Illness History of Present Illness: Chief complaint: Weakness, abdominal pain chest pain History present illness: 76-year-old male with history of dementia, hypertension, diabetes, poorly controlled, noncompliance with medication, and associated with a worsening dementia. Patient every day he comes to the office, and he is asking for pain medications mostly. Patient was given multiple medications including diabetic medication, and medications for dementia. But according to the family patient is not taking any of the medications. He is not complaint with his medications as well as her diet. According to the family patient is having significant trouble in getting along, and he is mostly wandering outside. He does not stay in one place. The patient's ex- was trying to control the medication, but the patient was not taking any medicine. He comes multiple times to the emergency room more frequently, with the chest pain. Patient in the past had multiple extensive workup for cardiac including angiogram, stress test, so far negative. Patient is currently suffering from increasing worsening diabetic related complications. His memory also significantly impairing. He is having trouble and concentration, and the does not remember the day as well as does not remember the place. Past medical history: Dementia, hypertension, diabetes, peripheral neuropathy, lumbar spinal stenosis , associated with claudication. Allergies: Morphine. Personal history: Patient is to be a smoker in the past, nonalcoholic currently, but used to drink in the past. Quit smoking many years ago. Medication history: Noncompliance, reviewed medications from my [facility] as well as office charts. Review of system: Currently having no headache, but complaining of some visual disturbances, no chest pain, but epigastric discomfort, patient has some nausea on and off. Bilateral leg pain noted, also complaining of lower back pain, associated with the leg swelling. Vital signs reviewed No neck vein distention noted Chest good air entry bilaterally, no wheezing or rales noted CVS regular heart sound, no murmur noted Abdomen soft, nontender. 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 Heart enzymes negative. Chest x-ray nonspecific Assessment the condition: 76-year-old male with history of diabetes hypertension and hypercholesteremia, spinal stenosis, associated with the pain, and developed a chronic lower back pain, advanced dementia. Patient also noncompressive the medication. Currently uncontrolled diabetes noted, associate with the severe chest pain. Most likely non-cardiac in origin. Recently had a multiple cardiac workup. Spoke to the patient's family in details. Patient is having trouble in taking care of himself. Family wanted him to be in the retirement possibly. Overall prognosis is guarded. We'll get a psychiatric evaluation. Glucose control. We'll follow the patient Present on Admission - Present on Admission Any Indicators Present on Admission: No History of DVT/PE: No History of Uncontrolled Diabetes: No Urinary Catheter: No Decubitus Ulcer Present: No Past Patient History - Infectious Disease Hx of Infectious Diseases: None - Past Medical History & Family History Past Medical History?: Yes - Past Social History Smoking Status: Former Smoker - CARDIAC Hx Hypercholesterolemia: Yes Hx Hypertension: Yes - PULMONARY Hx Asthma: Yes - NEUROLOGICAL Hx Dementia: Yes - HEENT Hx HEENT Problems: Yes (SEE COMMENT) Other/Comment: has eyeglasses for reading but doesn't use. - RENAL Hx Chronic Kidney Disease: No - ENDOCRINE/METABOLIC Hx Endocrine Disorders: Yes Hx Diabetes Mellitus Type 2: Yes - HEMATOLOGICAL/ONCOLOGICAL Hx Blood Disorders: No - INTEGUMENTARY Hx Dermatological Problems: No - MUSCULOSKELETAL/RHEUMATOLOGICAL Hx Arthritis: Yes - GASTROINTESTINAL Hx Gastritis: Yes - GENITOURINARY/GYNECOLOGICAL Hx Genitourinary Disorders: No - PSYCHIATRIC Hx Anxiety: Yes Hx Substance Use: No - SURGICAL HISTORY Hx Coronary Stent: Yes - ANESTHESIA Hx Anesthesia: Yes Hx Anesthesia Reactions: No Hx Malignant Hyperthermia: No Meds Home Medications: Home Medication List Medication Instructions Recorded Confirmed Type Donepezil [Aricept] 10 mg PO HS tab 08/22/16 Rx Gabapentin [Neurontin] 400 mg PO TID cap 08/22/16 Rx GlipiZIDE [Glucotrol] 10 mg PO BID tab 08/22/16 Rx Insulin Glargine, Recombina 25 unit SC HS unit 08/22/16 Rx [Lantus] Insulin Human Regular [Novolin R] 0 unit SC ACHS unit 08/22/16 Rx Losartan [Cozaar] 50 mg PO DAILY tab 08/22/16 Rx Memantine [Namenda] 5 mg PO DAILY tab 08/22/16 Rx Metoprolol Tartrate [Lopressor] 50 mg PO BID tab 08/22/16 Rx Pantoprazole [Protonix Susp] 40 mg PO DAILY packet 08/22/16 Rx QUEtiapine [Seroquel] 25 mg PO HS tab 08/22/16 Rx Rosuvastatin Calcium [Crestor] 5 mg PO HS tab 08/22/16 Rx SITagliptin [Januvia] 50 mg PO DAILY tab 08/22/16 Rx metFORMIN [glucOPHAGE] 1,000 mg PO BIDBS tab 08/22/16 Rx traMADol [Ultram] 25 mg PO TID PRN #90 tab 08/22/16 Rx Allergies/Adverse Reactions: Allergies Allergy/AdvReac Type Severity Reaction Status Date / Time morphine Allergy Intermediate SWELLING Verified 08/17/16 12:31 Results - Vital Signs Recent Vital Signs: Last Vital Signs Temp 98.1 F 08/18/16 15:15 Pulse 66 08/18/16 15:15 Resp 20 08/18/16 15:15 BP 104/59 L 08/18/16 15:15 Pulse Ox 96 08/18/16 15:15 - Labs Result Diagrams: 08/22/16 11:42 08/22/16 11:42 Labs: Laboratory Results - last 24 hr 08/17/16 08/18/16 08/18/16 21:23 01:41 07:09 WBC RBC Hgb Hct MCV MCH MCHC RDW Plt Count MPV APTT Sodium Potassium Chloride Carbon Dioxide Anion Gap BUN Creatinine Est GFR ( Amer) Est GFR (Non-Af Amer) POC Glucose (mg/dL) 332 H 323 H 252 H Random Glucose Calcium Total Bilirubin AST ALT Alkaline Phosphatase Total Creatine Kinase CK-MB (Mass) Troponin I, Quant Total Protein Albumin Globulin Albumin/Globulin Ratio 08/18/16 08/18/16 08/18/16 07:39 07:39 07:39 WBC 7.1 RBC 5.01 Hgb 14.2 Hct 42.1 MCV 84.0 MCH 28.3 MCHC 33.7 RDW 13.5 Plt Count 225 MPV 8.7 APTT 28 Sodium 133 Potassium 3.8 Chloride 97 L Carbon Dioxide 24 Anion Gap 16 BUN 18 Creatinine 0.7 L Est GFR ( Amer) > 60 Est GFR (Non-Af Amer) > 60 POC Glucose (mg/dL) Random Glucose 271 H Calcium 8.5 L Total Bilirubin 0.6 AST 18 ALT 22 Alkaline Phosphatase 116 Total Creatine Kinase 63 CK-MB (Mass) 1.07 Troponin I, Quant < 0.0120 Total Protein 7.0 Albumin 3.6 Globulin 3.4 Albumin/Globulin Ratio 1.1 08/18/16 08/18/16 11:26 16:31 WBC RBC Hgb Hct MCV MCH MCHC RDW Plt Count MPV APTT Sodium Potassium Chloride Carbon Dioxide Anion Gap BUN Creatinine Est GFR ( Amer) Est GFR (Non-Af Amer) POC Glucose (mg/dL) 222 H 225 H Random Glucose Calcium Total Bilirubin AST ALT Alkaline Phosphatase Total Creatine Kinase CK-MB (Mass) Troponin I, Quant Total Protein Albumin Globulin Albumin/Globulin Ratio
--- NOTE | 2016-08-18 19:21 | CP.PCM.PN ---
Subjective - Date & Time of Evaluation Date of Evaluation: 08/18/16 Time of Evaluation: 19:16 - Subjective Subjective: patient is feeling slightly weak, complaining of minimal chest pain. Cardiac enzymes negative. Patient is having increasing dementia. Wandering mostly. According to the family, patient is having significant problem in controlling the medication, and he is also having significant problem in blood sugar control. Patient will need social service evaEvaluation. Possible prison placement Objective - Vital Signs/Intake and Output Vital Signs (last 24 hours): Temp Pulse Resp BP Pulse Ox 98.1 F 66 20 104/59 L 96 08/18/16 15:15 08/18/16 15:15 08/18/16 15:15 08/18/16 15:15 08/18/16 15:15 Intake and Output: 08/18/16 08/19/16 18:59 06:59 Intake Total 300 Output Total 500 Balance -200 - Medications Medications: Current Medications Aspirin (Ecotrin) 325 mg PO DAILY [facility] Last Admin: 08/18/16 09:52 Dose: 325 mg Donepezil HCl (Aricept) 10 mg PO HS [facility] Last Admin: 08/17/16 22:10 Dose: 10 mg Gabapentin (Neurontin) 400 mg PO TID [facility] Last Admin: 08/18/16 17:32 Dose: 400 mg Glipizide (Glucotrol) 10 mg PO BID [facility] Last Admin: 08/18/16 17:32 Dose: 10 mg Heparin Sodium (Porcine) (Heparin) 5,000 units SC Q8 [facility] Last Admin: 08/18/16 13:55 Dose: 5,000 units Sodium Chloride (Sodium Chloride 0.45%) 1,000 mls @ 75 mls/hr IV .[id number] [facility] Last Admin: 08/18/16 12:02 Dose: Not Given Insulin Glargine (Lantus) 20 unit SC [facility] Last Admin: 08/17/16 22:14 Dose: 20 units Insulin Human Regular (Novolin R) 0 unit SC ACHS [facility] PRN Reason: Protocol Last Admin: 08/18/16 17:10 Dose: 3 unit Metformin HCl (Glucophage) 850 mg PO BID [facility] Last Admin: 08/18/16 17:32 Dose: 850 mg Metoprolol Tartrate (Lopressor) 50 mg PO BID [facility] Last Admin: 08/18/16 09:52 Dose: 50 mg Pantoprazole Sodium (Protonix Susp) 40 mg PO DAILY [facility] Last Admin: 08/18/16 09:52 Dose: 40 mg Quetiapine Fumarate (Seroquel) 25 mg PO HS [facility] Rosuvastatin Calcium (Crestor) 5 mg PO HS [facility] Last Admin: 08/17/16 22:10 Dose: 5 mg Sitagliptin Phosphate (Januvia) 50 mg PO DAILY [facility] Last Admin: 08/18/16 09:52 Dose: 50 mg Tramadol HCl (Ultram) 25 mg PO TID PRN PRN Reason: Pain, moderate (4-7) Last Admin: 08/18/16 06:47 Dose: 25 mg - Labs Labs: 08/18/16 07:39 08/18/16 07:39 APTT 28 SECONDS (21-34) 08/18/16 07:39
--- NOTE | 2016-08-18 19:39 | CARD ---
APPROVED REPORT EKG Measurement Heart [id number] <Conclusion> Normal sinus rhythm Normal ECG
[2016-08-18] MEDS: (Lantus) Insulin Glargine, Recombinant SC SCH (21:25)
[2016-08-19] MEDS: (Novolin R) Insulin Human Regular 100 units/ml vial SC SCH ×4 (08:10→21:15)
[2016-08-19] MEDS: Sodium Chloride 0.45% 1,000 ML IV SCH (08:11)
[2016-08-19] MEDS: Aspirin 325 mg EC Tablets PO SCH (09:34)
[2016-08-19] MEDS: Pantoprazole 40 mg Susp UD PO SCH (09:35)
--- NOTE | 2016-08-19 15:13 | PN ---
DATE: 08/19/2016 SUBJECTIVE: The patient seen in his room. The patient has been compliant with meds. Still continue s to have periods of confusion. The patient is seen today. He said he is willing to go for subacute rehab, but patient does not know what day of the week. He is oriented to place and to person. The patient is currently on Aricept and Seroquel 25 mg at bedtime. VITAL SIGNS: Temperature is 97.6, pulse rate is 74, blood pressure is 139/79, respirations 20, oxyge n sat 96. REVIEW OF SYSTEMS: GENERAL: The patient is alert, but still forgetful with periods of confusion, no major behavioral pr oblems. SKIN: No diaphoresis. HEENT: No headache or blurring vision. NECK: Supple. RESPIRATORY: No dyspnea. CARDIOVASCULAR: No chest pain. GASTROINTESTINAL: He is eating better. EXTREMITIES: The patient is moving extremities. MUSCULOSKELETAL: Feels weak. NEUROLOGIC: Alert with periods of confusion. The patient's mental status seems to be waxing and wan ing, is more manageable during the morning. MENTAL STATUS EXAMINATION: Elderly male who looks stated age, conversing in Greek and oriented x 2 . Affect is reactive. Speech is spontaneous. Thought process, confused off and on. Thought conten t: No overt psychosis. No suicidal or homicidal ideation. Attention and memory seem to be limited. Insight and judgment limited. Impulse control is fair at this time. IMPRESSION: History of dementia, vascular type, as well as uncontrolled hyperglycemia. PLAN AND RECOMMENDATION: The patient is seen, meds reviewed. Continue present management. The praveen ent is for subacute rehab once medically cleared. However, at this time, his blood sugar is still el evated. The last blood sugar was 270. The patient has been compliant with diet. The patient is ralf iting medical clearance prior to transfer to subacute rehab, possibly to [facility]. Fabio Bustamante MD cc: [id number] TT: 08/19/2016 15:12:32 Confirmation # [id number] Dictation # [id number] estefanía
[2016-08-19 18:37] LABS: THYROID STIMULATING HORMONE 2.16 mIU/L (0.46-4.68)
[2016-08-19 19:12] LABS: FOLATE 11.3 ng/mL
[2016-08-19] MEDS: (Lantus) Insulin Glargine, Recombinant SC SCH (21:24)
[2016-08-20] MEDS: (Novolin R) Insulin Human Regular 100 units/ml vial SC SCH ×4 (07:55→21:17)
[2016-08-20] MEDS: Pantoprazole 40 mg Susp UD PO SCH (09:16)
[2016-08-20] MEDS: Aspirin 325 mg EC Tablets PO SCH (09:16)
[2016-08-20 12:19] LABS: HEMATOCRIT 40.2 % (35.0-51.0); MEAN CORPUSCULAR HEMOGLOBIN 28.3 pg (27.0-31.0); MEAN CORPUSCULAR HGB CONC 33.6 g/dL (33.0-37.0); RED CELL DISTRIBUTION WIDTH 13.5 % (11.5-14.5); WHITE BLOOD COUNT 5.6 K/uL (4.8-10.8)
[2016-08-20 12:55] LABS: CHLORIDE 98 mmol/L (98-107); POTASSIUM 3.6 mmol/L (3.6-5.2); SODIUM 135 mmol/L (132-148)
[2016-08-20 12:57] LABS: BILIRUBIN,TOTAL 0.4 mg/dL (0.2-1.3); GFR AFRICAN-AMERICAN > 60
[2016-08-20 12:58] LABS: ALB/GLOB RATIO 1.1 (1.0-2.1); ALKALINE PHOSPHATASE 91 U/L (38-126); ALT/SGPT 22 U/L (21-72); AST/SGOT 17 U/L (17-59); BLOOD UREA NITROGEN 16 mg/dL (9-20); CARBON DIOXIDE 26 mmol/L (22-30); GLUCOSE,RANDOM 203 mg/dL (75-110); TOTAL PROTEIN 6.3 g/dL (6.3-8.3)
[2016-08-20 12:59] LABS: CALCIUM 8.7 mg/dl (8.6-10.4)
--- NOTE | 2016-08-20 15:54 | PN ---
DATE: 08/20/2016 SUBJECTIVE: The patient is seen. The patient still has periods of confusion, but eating well. He i s redirectable. The patient wants to leave the hospital, needs to be reoriented to hospital. The timbo spencer is still made aware that his sugar is elevated, but according to the nurse, patient is currentl y eating and his is cheating on his diet. His last blood sugar was noted to be 203, but patient had blood sugar level earlier of 324. VITAL SIGNS: Temperature is 97.7, pulse rate 61, blood pressure 131/80, respirations 20, oxygen sat is 97%. REVIEW OF SYSTEMS: GENERAL: The patient is alert, verbal, still with periods of confusion, but more redirectable. seen in his room. The patient states he wants to go home. SKIN: No diaphoresis. HEENT: No headache, no dizziness. NECK: Supple. RESPIRATORY: No dyspnea. CARDIOVASCULAR: No chest pain. GASTROINTESTINAL: Very good appetite. EXTREMITIES: The patient is ambulatory. MUSCULOSKELETAL: Feels weak. NEUROLOGIC: Alert with periods of confusion. GENITOURINARY: No dysuria. MENTAL STATUS EXAMINATION: Elderly male who looks stated age, oriented x 2, place and person, not to time. Mood is calm. Affect is reactive. Speech spontaneous. Thought process confused off and on. Thought content: The patient states he is always hungry. No paranoia or hallucinations. Attentio n and memory seem to be limited. Insight and judgment limited. Impulse control is fair at this time . IMPRESSION: History of senile dementia, vascular type with mood changes, as well as diabetes. PLAN AND RECOMMENDATIONS: The patient seen, meds reviewed. The patient is awaiting medical clearanc e to go to [facility] for subacute rehabilitation and possible long-term placement. The christie cervantes is currently on Aricept 10 mg at bedtime and Seroquel 25 mg at bedtime. We will add Namenda 5 m g p.o. daily for dementia. Fabio Bustamante MD cc: [id number] TT: 08/20/2016 15:54:08 Confirmation # [id number] Dictation # [id number]
[2016-08-20] MEDS: (Lantus) Insulin Glargine, Recombinant SC SCH (21:22)
[2016-08-21] MEDS: (Novolin R) Insulin Human Regular 100 units/ml vial SC SCH ×4 (08:30→21:49)
[2016-08-21] MEDS: Aspirin 325 mg EC Tablets PO SCH (09:59)
[2016-08-21] MEDS: Pantoprazole 40 mg Susp UD PO SCH (09:59)
[2016-08-21] MEDS: Tramadol 25 mg PO PRN (18:26)
--- NOTE | 2016-08-21 20:53 | CP.PCM.PN ---
Subjective - Date & Time of Evaluation Date of Evaluation: 08/21/16 Time of Evaluation: 20:53 - Subjective Subjective: Patient is currently doing well, but episodes of agitation noted, wanting to go home. Spoke to the family. Patient is stable. Physical therapy. Glucose control. Possible rehabilitation evaluation and management. Objective - Vital Signs/Intake and Output Vital Signs (last 24 hours): Temp Pulse Resp BP Pulse Ox 98.1 F 76 20 152/82 H 95 08/21/16 15:00 08/21/16 15:00 08/21/16 15:00 08/21/16 15:00 08/21/16 15:00 Intake and Output: 08/21/16 08/22/16 18:59 06:59 Intake Total 480 Balance 480 - Medications Medications: Current Medications Aspirin (Ecotrin) 325 mg PO DAILY [facility] Last Admin: 08/21/16 09:59 Dose: 325 mg Donepezil HCl (Aricept) 10 mg PO HS [facility] Last Admin: 08/20/16 21:21 Dose: 10 mg Gabapentin (Neurontin) 400 mg PO TID [facility] Last Admin: 08/21/16 17:31 Dose: 400 mg Glipizide (Glucotrol) 10 mg PO BID [facility] Last Admin: 08/21/16 17:32 Dose: 10 mg Heparin Sodium (Porcine) (Heparin) 5,000 units SC Q8 [facility] Last Admin: 08/21/16 14:37 Dose: 5,000 units Insulin Glargine (Lantus) 25 unit SC HS [facility] Last Admin: 08/20/16 21:22 Dose: 25 units Insulin Human Regular (Novolin R) 0 unit SC [facility] PRN Reason: Protocol Last Admin: 08/21/16 17:10 Dose: 3 unit Losartan Potassium (Cozaar) 50 mg PO DAILY [facility] Last Admin: 08/21/16 09:59 Dose: 50 mg Memantine (Namenda) 5 mg PO DAILY [facility] Last Admin: 08/21/16 09:59 Dose: 5 mg Metformin HCl (Glucophage) 1,000 mg PO BIDBS [facility] Last Admin: 08/21/16 17:10 Dose: 1,000 mg Metoprolol Tartrate (Lopressor) 50 mg PO BID [facility] Last Admin: 08/21/16 17:32 Dose: 50 mg Pantoprazole Sodium (Protonix Susp) 40 mg PO DAILY [facility] Last Admin: 08/21/16 09:59 Dose: 40 mg Quetiapine Fumarate (Seroquel) 25 mg PO HS [facility] Last Admin: 08/20/16 21:21 Dose: 25 mg Rosuvastatin Calcium (Crestor) 5 mg PO HS [facility] Last Admin: 08/20/16 21:21 Dose: 5 mg Sitagliptin Phosphate (Januvia) 50 mg PO DAILY [facility] Last Admin: 08/21/16 09:59 Dose: 50 mg Tramadol HCl (Ultram) 25 mg PO TID PRN PRN Reason: Pain, moderate (4-7) Last Admin: 08/21/16 18:26 Dose: 25 mg - Labs Labs: 08/20/16 12:06 08/20/16 12:06 APTT 28 SECONDS (21-34) 08/18/16 07:39
[2016-08-21] MEDS: (Lantus) Insulin Glargine, Recombinant SC SCH (21:46)
[2016-08-22] MEDS: (Novolin R) Insulin Human Regular 100 units/ml vial SC SCH ×3 (09:17→16:37)
[2016-08-22] MEDS: Aspirin 325 mg EC Tablets PO SCH (09:19)
[2016-08-22] MEDS: Pantoprazole 40 mg Susp UD PO SCH (09:20)
[2016-08-22 10:45] VITALS: O2SAT 97
[2016-08-22 11:48] LABS: BASO # 0.1 K/uL (0.0-0.2); BASO % 0.9 % (0.0-2.0); EOS # 0.1 K/uL (0.0-0.7); EOS % 1.9 % (0.0-4.0); HEMATOCRIT 41.1 % (35.0-51.0); LYMPH # 1.3 K/uL (1.0-4.3); LYMPH % 19.7 % (20.0-40.0); MEAN CORPUSCULAR HEMOGLOBIN 28.9 pg (27.0-31.0); MEAN CORPUSCULAR HGB CONC 34.4 g/dL (33.0-37.0); MEAN PLATELET VOLUME 8.6 fL (7.2-11.7); MONO # 0.8 K/uL (0.0-0.8); MONO % 11.9 % (0.0-10.0); RED CELL DISTRIBUTION WIDTH 13.3 % (11.5-14.5); WHITE BLOOD COUNT 6.7 K/uL (4.8-10.8)
[2016-08-22 12:06] LABS: CHLORIDE 99 mmol/L (98-107); SODIUM 135 mmol/L (132-148)
[2016-08-22 12:08] LABS: ALB/GLOB RATIO 1.1 (1.0-2.1); AST/SGOT 26 U/L (17-59); BILIRUBIN,TOTAL 0.6 mg/dL (0.2-1.3); CARBON DIOXIDE 27 mmol/L (22-30); GFR AFRICAN-AMERICAN > 60; TOTAL PROTEIN 6.6 g/dL (6.3-8.3)
[2016-08-22 12:09] LABS: ALKALINE PHOSPHATASE 89 U/L (38-126); ALT/SGPT 18 U/L (21-72); BLOOD UREA NITROGEN 17 mg/dL (9-20); GLUCOSE,RANDOM 233 mg/dL (75-110)
--- NOTE | 2016-08-22 12:53 | CP.PCM.PN ---
Subjective - Date & Time of Evaluation Date of Evaluation: 08/22/16 Time of Evaluation: 12:53 - Subjective Subjective: Awake, alert, confused, no agitation. Objective - Vital Signs/Intake and Output Vital Signs (last 24 hours): Temp Pulse Resp BP Pulse Ox 98.0 F 76 20 119/70 97 08/22/16 08:00 08/22/16 08:00 08/22/16 08:00 08/22/16 08:00 08/22/16 08:00 Intake and Output: 08/22/16 08/22/16 06:59 18:59 Intake Total 930 300 Balance 930 300 - Medications Medications: Current Medications Aspirin (Ecotrin) 325 mg PO DAILY [facility] Last Admin: 08/22/16 09:19 Dose: 325 mg Donepezil HCl (Aricept) 10 mg PO HS [facility] Last Admin: 08/21/16 21:46 Dose: 10 mg Gabapentin (Neurontin) 400 mg PO TID [facility] Last Admin: 08/22/16 09:19 Dose: 400 mg Glipizide (Glucotrol) 10 mg PO BID [facility] Last Admin: 08/22/16 09:19 Dose: 10 mg Heparin Sodium (Porcine) (Heparin) 5,000 units SC Q8 [facility] Last Admin: 08/22/16 06:22 Dose: Not Given Insulin Glargine (Lantus) 25 unit SC [facility] Last Admin: 08/21/16 21:46 Dose: 25 units Insulin Human Regular (Novolin R) 0 unit SC [facility] PRN Reason: Protocol Last Admin: 08/22/16 09:17 Dose: 3 unit Losartan Potassium (Cozaar) 50 mg PO DAILY [facility] Last Admin: 08/22/16 09:19 Dose: 50 mg Memantine (Namenda) 5 mg PO DAILY [facility] Last Admin: 08/22/16 09:19 Dose: 5 mg Metformin HCl (Glucophage) 1,000 mg PO BIDBS [facility] Last Admin: 08/22/16 09:19 Dose: 1,000 mg Metoprolol Tartrate (Lopressor) 50 mg PO BID [facility] Last Admin: 08/22/16 09:20 Dose: 50 mg Pantoprazole Sodium (Protonix Susp) 40 mg PO DAILY [facility] Last Admin: 08/22/16 09:20 Dose: 40 mg Quetiapine Fumarate (Seroquel) 25 mg PO HS [facility] Last Admin: 08/21/16 21:46 Dose: 25 mg Rosuvastatin Calcium (Crestor) 5 mg PO HS [facility] Last Admin: 08/21/16 21:46 Dose: 5 mg Sitagliptin Phosphate (Januvia) 50 mg PO DAILY [facility] Last Admin: 08/22/16 09:19 Dose: 50 mg Tramadol HCl (Ultram) 25 mg PO TID PRN PRN Reason: Pain, moderate (4-7) Last Admin: 08/21/16 18:26 Dose: 25 mg - Labs Labs: 08/22/16 11:42 08/20/16 12:06 APTT 28 SECONDS (21-34) 08/18/16 07:39 Assessment and Plan - Assessment and Plan (Free Text) Assessment: Patient is seen and examined. Awake, demented, no agitation, no complaints of pain. D/W DR Jeronimo, plan to discharge to [facility] rehab today on present meds. No distress noted.
--- NOTE | 2016-08-22 15:57 | PN ---
DATE: 08/22/2016 SUBJECTIVE: The patient is seen. The patient continues to have periods of confusion, but very redir ectable. The patient, however, still cheating on his diet. He said he is always hungry. The patien t will be going today to [facility] for subacute rehab. Psych gaytan, he is taking Aricept 10 mg at bedtime, Namenda 5 mg daily and Seroquel 25 mg at bedtime. The patient claims he is always hu ngry. Behavior is redirectable. VITAL SIGNS: Temperature is 98, pulse rate 76, blood pressure 119/70, respiration is 20, oxygen sat is 97%. REVIEW OF SYSTEMS: GENERAL: The patient is alert, but confused, seen in room, resting, not in acute respiratory distres s. SKIN: No diaphoresis. HEENT: No headache, no dizziness. NECK: Supple. RESPIRATORY: No dyspnea. CARDIOVASCULAR: No chest pain. GASTROINTESTINAL: He is eating well. EXTREMITIES: The patient moves extremities. MUSCULOSKELETAL: Weakness, improving. NEUROLOGIC: Alert with periods of forgetfulness. GENITOURINARY: No dysuria. MENTAL STATUS EXAMINATION: Elderly male who looks stated age, oriented to place and person. Mood is dysphoric. Affect is restricted. Speech spontaneous. Thought process forgetful. Thought content: The patient has agreed to go to [facility] for subacute rehab. No overt psychosis. No suicidal or padma icidal ideation. Attention and memory seem to be limited. Insight and judgment limited. Impulse co ntrol is fair at this time. IMPRESSION: Senile onset dementia, vascular type with mood changes, as well as diabetes. PLAN AND RECOMMENDATIONS: The patient seen, meds reviewed. Continue Namenda, Seroquel and Aricept a s ordered. The patient is psychiatrically stable to go to [facility] for subacute rehab. O n review of his labs, patient's last blood sugar is 229, has been averaging over 200, but patient is stating he is always hungry and cheating on his diet. Fabio Bustamante MD cc: [id number] TT: 08/22/2016 15:57:17 Confirmation # [id number] Dictation # [id number]
[2016-08-22 16:40] VITALS: BP 139/82; PULSE 80; TEMP 98.1
--- NOTE | 2016-08-22 19:23 | CP.PCM.DIS ---
Provider - Provider Date of Admission: 08/19/16 12:36 Attending physician: Freida Jeronimo MD Time Spent in preparation of Discharge (in minutes): 45 Hospital Course - Lab Results Lab Results: Most Recent Lab Values WBC 6.7 K/uL (4.8-10.8) 08/22/16 11:42 RBC 4.89 Mil/uL (4.40-5.90) 08/22/16 11:42 Hgb 14.2 g/dL (12.0-18.0) 08/22/16 11:42 Hct 41.1 % (35.0-51.0) 08/22/16 11:42 MCV 84.0 fL (80.0-94.0) 08/22/16 11:42 MCH 28.9 pg (27.0-31.0) 08/22/16 11:42 MCHC 34.4 g/dL (33.0-37.0) 08/22/16 11:42 RDW 13.3 % (11.5-14.5) 08/22/16 11:42 Plt Count 205 K/uL (130-400) 08/22/16 11:42 MPV 8.6 fL (7.2-11.7) 08/22/16 11:42 Neut % (Auto) 65.6 % (50.0-75.0) 08/22/16 11:42 Lymph % (Auto) 19.7 % (20.0-40.0) L 08/22/16 11:42 Franklin % (Auto) 11.9 % (0.0-10.0) H 08/22/16 11:42 Eos % (Auto) 1.9 % (0.0-4.0) 08/22/16 11:42 Baso % (Auto) 0.9 % (0.0-2.0) 08/22/16 11:42 Neut # 4.4 K/uL (1.8-7.0) 08/22/16 11:42 Lymph # 1.3 K/uL (1.0-4.3) 08/22/16 11:42 Franklin # 0.8 K/uL (0.0-0.8) 08/22/16 11:42 Eos # 0.1 K/uL (0.0-0.7) 08/22/16 11:42 Baso # 0.1 K/uL (0.0-0.2) 08/22/16 11:42 APTT 28 SECONDS (21-34) 08/18/16 07:39 Sodium 135 mmol/L (132-148) 08/22/16 11:42 Potassium 4.0 mmol/L (3.6-5.2) 08/22/16 11:42 Chloride 99 mmol/L (98-107) 08/22/16 11:42 Carbon Dioxide 27 mmol/L (22-30) 08/22/16 11:42 Anion Gap 12 (10-20) 08/22/16 11:42 BUN 17 mg/dL (9-20) 08/22/16 11:42 Creatinine 0.9 MG/DL (0.8-1.5) 08/22/16 11:42 Est GFR ( Amer) > 60 08/22/16 11:42 Est GFR (Non-Af Amer) > 60 08/22/16 11:42 POC Glucose (mg/dL) 177 mg/dL (65-110) H 08/22/16 16:03 Random Glucose 233 mg/dL (75-110) H 08/22/16 11:42 Calcium 9.0 mg/dl (8.6-10.4) 08/22/16 11:42 Total Bilirubin 0.6 mg/dL (0.2-1.3) 08/22/16 11:42 AST 26 U/L (17-59) 08/22/16 11:42 ALT 18 U/L (21-72) L 08/22/16 11:42 Alkaline Phosphatase 89 U/L (38-126) 08/22/16 11:42 Total Creatine Kinase 63 U/L (55-170) 08/18/16 07:39 CK-MB (Mass) 1.07 ng/mL (0.0-3.38) 08/18/16 07:39 Troponin I < 0.0120 ng/mL (0.00-0.120) 08/17/16 13:05 Troponin I, Quant < 0.0120 ng/mL (0.00-0.120) 08/18/16 07:39 NT-Pro-B Natriuret Pep 90.0 pg/mL (0-900) 08/17/16 13:05 Total Protein 6.6 g/dL (6.3-8.3) 08/22/16 11:42 Albumin 3.5 g/dL (3.5-5.0) 08/22/16 11:42 Globulin 3.1 gm/dL (2.2-3.9) 08/22/16 11:42 Albumin/Globulin Ratio 1.1 (1.0-2.1) 08/22/16 11:42 Vitamin B12 719 pg/mL (239-931) 08/19/16 17:37 Folate 11.3 ng/mL 08/19/16 17:37 TSH 3rd Generation 2.16 mIU/L (0.46-4.68) 08/19/16 17:37 Serum Ketones Negative (NEGATIVE) 08/17/16 16:47 - Hospital Course Hospital Course: Chief complaint: Weakness, abdominal pain chest pain History present illness: 76-year-old male with history of dementia, hypertension, diabetes, poorly controlled, noncompliance with medication, and associated with a worsening dementia. Patient every day he comes to the office, and he is asking for pain medications mostly. Patient was given multiple medications including diabetic medication, and medications for dementia. But according to the family patient is not taking any of the medications. He is not complaint with his medications as well as her diet. According to the family patient is having significant trouble in getting along, and he is mostly wandering outside. He does not stay in one place. The patient's ex- was trying to control the medication, but the patient was not taking any medicine. He comes multiple times to the emergency room more frequently, with the chest pain. Patient in the past had multiple extensive workup for cardiac including angiogram, stress test, so far negative. Patient is currently suffering from increasing worsening diabetic related complications. His memory also significantly impairing. He is having trouble and concentration, and the does not remember the day as well as does not remember the place. Past medical history: Dementia, hypertension, diabetes, peripheral neuropathy, lumbar spinal stenosis , associated with claudication. Allergies: Morphine. Personal history: Patient is to be a smoker in the past, nonalcoholic currently, but used to drink in the past. Quit smoking many years ago. Medication history: Noncompliance, reviewed medications from my old hospital as well as office charts. Review of system: Currently having no headache, but complaining of some visual disturbances, no chest pain, but epigastric discomfort, patient has some nausea on and off. Bilateral leg pain noted, also complaining of lower back pain, associated with the leg swelling. Vital signs reviewed No neck vein distention noted Chest good air entry bilaterally, no wheezing or rales noted CVS regular heart sound, no murmur noted Abdomen soft, nontender. Extremities no pedal edema, peripheral pulses are normal CUFFER alert awake, but he is disoriented to place and time Patient's labs reviewed in EKG nonspecific. Heart enzymes negative. Chest x-ray nonspecific Assessment the condition: 76-year-old male with history of diabetes hypertension and hypercholesteremia, spinal stenosis, associated with the pain, and developed a chronic lower back pain, advanced dementia. Patient also noncompressive the medication. Currently uncontrolled diabetes noted, associate with the severe chest pain. Most likely non-cardiac in origin. Recently had a multiple cardiac workup. Spoke to the patient's family in details. Patient is having trouble in taking care of himself. Family wanted him to be in the senior care possibly. Overall prognosis is guarded. We'll get a psychiatric evaluation. Glucose control. We'll follow the patient Patient was seen by psychiatrist. Glucose control to better now. Currently feeling better. Spoke to the family. He will be discharged to rehabilitation. And the possible senior care evaluation. We'll continue the current treatment. I will follow the patient. Medications reviewed and reconciled Discharge Plan - Follow Up Plan Condition: STABLE Disposition: REHAB FACILITY/REHAB UNIT Instructions: Meal Planning with Diabetes Exchanges (DC), Diabetic Hyperglycemia (DC) Referrals: Freida Jeronimo MD [Staff Provider] -
== END 2016-08-22 16:30 | DRG 639 ==
LOC: C.ER 12:23 → C.9E 15:14 → INTOOBSV 15:14 → C.3T 16:19 → OBSVTOIN 08-19 12:36
PROVIDERS: ADMIT Internal Medicine; ATTEND Internal Medicine
DX: E11.65 Type 2 diabetes mellitus with hyperglycemia (principal); F01.50 Vascular dementia, unspecified severity, without behavioral disturbance, psychotic disturbance, mood disturbance, and anxiety; E11.42 Type 2 diabetes mellitus with diabetic polyneuropathy; I10 Essential (primary) hypertension; G89.4 Chronic pain syndrome; I73.9 Peripheral vascular disease, unspecified; M48.06 Spinal stenosis, lumbar region; E78.00 Pure hypercholesterolemia, unspecified; M54.5 Low back pain; R07.9 Chest pain, unspecified; E78.5 Hyperlipidemia, unspecified; F41.9 Anxiety disorder, unspecified; J45.909 Unspecified asthma, uncomplicated; Z79.4 Long term (current) use of insulin; Z79.84 Long term (current) use of oral hypoglycemic drugs; Z79.899 Other long term (current) drug therapy; Z91.14 Patient's other noncompliance with medication regimen; Z87.891 Personal history of nicotine dependence; Z91.19 Patient's noncompliance with other medical treatment and regimen

== ENCOUNTER 2016-09-07 14:04 | Inpatient (IN) | payer MEDICARE, MEDICAID ==
[2016-09-07 14:04] VITALS: BMI 26.6
[2016-09-07] MEDS ORDERED: Aspirin 325 mg EC Tablets PO STA (14:40)
[2016-09-07] MEDS ORDERED: Digoxin 500 mcg/2ml (0.5 mg/2ml) Inj IVP ONE (14:41)
[2016-09-07] MEDS ORDERED: Sodium Chloride 0.9% 500 ML IV ONE ×2 (14:50→14:55)
[2016-09-07] MEDS ORDERED: (Novolin R) Insulin Human Regular 100 units/ml vial IV STA (14:50)
[2016-09-07] MEDS ORDERED: Aspirin 325 mg EC Tablets PO ONE (14:51)
[2016-09-07] MEDS ORDERED: (Novolin R) Insulin Human Regular 100 units/ml vial ONE (14:54)
[2016-09-07] MEDS ORDERED: Digoxin 500 mcg/2ml (0.5 mg/2ml) Inj ONE (14:55)
--- NOTE | 2016-09-07 14:58 | C.PDOC ---
History Of Present Illness 76 y/o male with Hx of dementia, DM, Heart failure presents to ED with chest pain and is noted to be confused. Patient is a poor historian and had frequent visit to ER for similar symptoms. Patient is also noted to visit Dr. Jeronimo daily for medications which he is non complaint with. At ED patient complaints of chest pain but then denies such symptoms. No other complaints at this time. Time Seen by Provider: 09/07/16 14:28 Chief Complaint (Nursing): Chest Pain History Per: Patient History/Exam Limitations: no limitations Onset/Duration Of Symptoms: Days Current Symptoms Are (Timing): Still Present Past Medical History Reviewed: Historical Data, Nursing Documentation, Vital Signs Vital Signs: Last Vital Signs Temp Pulse 100 H 09/07/16 15:10 Resp 16 09/07/16 15:10 BP 98/74 L 09/07/16 15:10 Pulse Ox 100 09/07/16 15:10 - Medical History PMH: Anxiety, Arthritis, Asthma, Back Problems (Chronic Pain), Dementia, Diabetes, Gastritis, HTN, Hypercholesterolemia, Hyperlipidemia Surgical History: Coronary Stent - [facility] Procedures CORONAR ARTERIOGR-2 CATH (12/02/13) LEFT HEART CARDIAC CATH (12/02/13) LT HEART ANGIOCARDIOGRAM (12/02/13) Family History: States: Unknown Family Hx - Social History Hx Tobacco Use: Yes Hx Alcohol Use: No Hx Substance Use: No - Immunization History Hx Tetanus Toxoid Vaccination: No Hx Influenza Vaccination: No Hx Pneumococcal Vaccination: No Review Of Systems Review Of Systems: ROS cannot be obtained secondary to pt's inabilty to answer questions. (Patient is a poor historian and is confused at ED) Physical Exam - Physical Exam Appears: Confused Skin: Normal Color, Warm Head: Atraumatic, Normacephalic Cardiovascular: Other (A-fib rate varies from 110-140 bpm) Respiratory: Rales (Diffused scattered rales), No Wheezing Gastrointestinal/Abdominal: Soft, No Tenderness, No Guarding, No Rebound Extremity: Normal ROM, Capillary Refill (<2 seconds) Neurological/Psych: Other (Patient does not answer questions appropiately) Disoriented To: Person, Place, Situation ED Course And Treatment - Laboratory Results Result Diagrams: 09/07/16 14:53 09/07/16 14:53 Lab Interpretation: Abnormal (Glucose 441, BNP 1870) ECG: Interpreted By Me ECG Rhythm: Atrial Fibrillation (with rapid rate) O2 Sat by Pulse Oximetry: 98 (RA) Pulse Ox Interpretation: Normal - Radiology CXR: Interpreted by Me CXR Interpretation: Yes: No Acute Disease Progress Note: Patient treated in ED with Digoxin and fluids for low blood pressure. Reevaluation Time: 15:27 Reassessment Condition: Improved - Physician Consult Information Time Consulting Physician Contacted: 15:27 Physician Contacted: Freida Jeronimo Outcome Of Conversation: Patient well known to him and has never had an episode of atrial fibrillation before. He had recent cardiac cath and was flound to have patent coronary arteries. He will admit to Tele. Disposition - Disposition Disposition: HOSPITALIZED Disposition Time: 15:28 Condition: IMPROVED - POA Present On Arrival: None - Clinical Impression Clinical Impression: New onset atrial fibrillation, Hyperglycemia, Diabetes, Dementia - Scribe Statement The provider has reviewed the documentation as recorded by the Jebibkelsi Turner All medical record entries made by the Scribe were at my direction and personally dictated by me. I have reviewed the chart and agree that the record accurately reflects my personal performance of the history, physical exam, medical decision making, and the department course for this patient. I have also personally directed, reviewed, and agree with the discharge instructions and disposition.
[2016-09-07 14:59] LABS: BASO # 0.1 K/uL (0.0-0.2); BASO % 0.9 % (0.0-2.0); EOS # 0.3 K/uL (0.0-0.7); EOS % 4.3 % (0.0-4.0); HEMOGLOBIN 14.1 g/dL (12.0-18.0); LYMPH % 13.6 % (20.0-40.0); MEAN CELL VOLUME 83.9 fL (80.0-94.0); MEAN CORPUSCULAR HEMOGLOBIN 27.8 pg (27.0-31.0); MEAN CORPUSCULAR HGB CONC 33.1 g/dL (33.0-37.0); MONO # 0.7 K/uL (0.0-0.8); MONO % 9.8 % (0.0-10.0); NEUT % 71.4 % (50.0-75.0); NRBC % 0.1 % (0.0-2.0); RBC 5.09 Mil/uL (4.40-5.90); RED CELL DISTRIBUTION WIDTH 13.6 % (11.5-14.5)
[2016-09-07 15:03] VITALS: PULSE 113
[2016-09-07 15:05] LABS: INR 1.1; PROTHROMBIN TIME 12.7 SECONDS (9.7-12.2)
[2016-09-07 15:06] LABS: ALBUMIN 3.5 g/dL (3.5-5.0)
[2016-09-07 15:09] LABS: ALB/GLOB RATIO 0.9 (1.0-2.1); ALT/SGPT 32 U/L (21-72); AST/SGOT 22 U/L (17-59); BLOOD UREA NITROGEN 19 mg/dL (9-20); GFR AFRICAN-AMERICAN > 60; GFR NON-AFRICAN AMERICAN > 60
[2016-09-07 15:10] LABS: CALCIUM 8.8 mg/dl (8.6-10.4)
[2016-09-07 15:20] LABS: B-TYPE NATRIURETIC PEPTIDE 1870 pg/mL (0-900)
--- NOTE | 2016-09-07 15:25 | RAD ---
PROCEDURE: CHEST RADIOGRAPH, 1 VIEW HISTORY: Palpations COMPARISON: 08/17/2016. FINDINGS: LUNGS: There is ill-defined airspace disease in the right lower lobe. The left lung is clear. PLEURA: There is persistent blunting of the right costophrenic angle. No pneumothorax or left pleural effusion. CARDIOVASCULAR: Normal. OSSEOUS STRUCTURES: No significant abnormalities. VISUALIZED UPPER ABDOMEN: Normal. OTHER FINDINGS: None. IMPRESSION: Suspect right lower lobe pneumonia and small right pleural effusion. Follow-up to resolution is advised.
--- NOTE | 2016-09-07 21:31 | CP.PCM.HP ---
History of Present Illness - History of Present Illness History of Present Illness: Chief complaint: alpitation chest pain History present illness: 76-year-old male with history of dementia, hypertension, diabetes, poorly controlled, noncompliance with medication, and associated with a worsening dementia. Patient every day he comes to the office, and he is asking for pain medications mostly. Patient was given multiple medications including diabetic medication, and medications for dementia. But according to the family patient is not taking any of the medications. According to the family patient is having significant trouble in getting along, and he is mostly wandering outside. He does not stay in one place. He comes multiple times to the emergency room more frequently, with the chest pain. Patient in the past had multiple extensive workup for cardiac including angiogram, stress test, so far negative. 10 came to the emergency room with the palpitation today. In the emergency room patient was noted to have the atrial fibrillation, and a rapid ventricular rate with hypotension. Past medical history: Dementia, hypertension, diabetes, peripheral neuropathy, lumbar spinal stenosis , associated with claudication. Allergies: Morphine. Personal history: Patient is to be a smoker in the past, nonalcoholic currently, but used to drink in the past. Quit smoking many years ago. Medication history: Noncompliance, reviewed medications from my old hospital as well as office charts. Review of system: Currently having no headache, but complaining of some visual disturbances, no chest pain, but epigastric discomfort, patient has some nausea on and off. Bilateral leg pain noted, also complaining of lower back pain, associated with the leg swelling. Vital signs reviewed No neck vein distention noted Chest good air entry bilaterally, no wheezing or rales noted CVS irregular heart sound, no murmur noted Abdomen soft, nontender. Extremities no pedal edema, peripheral pulses are normal [employer] alert awake, but he is disoriented to place and time Dr. Herrera showing evidence of atrial fibrillation with rapid ventricular rate. Chest x-ray nonspecific. Assessment the condition: 76-year-old male with history of diabetes hypertension and hypercholesteremia, spinal stenosis, associated with the pain, and developed a chronic lower back pain, advanced dementia. Patient also noncompliance with the medication. Now admitted with a new onset atrial fibrillation. Patient is at high risk. He has a high risk for noncompliance with medication, medications toxicity, as well as frequent fall. I explained this information to the patient's son Mr. Chavez at . We'll get a cardiology evaluation. Anticoagulation. Antianxiety medication, will follow the patient Present on Admission - Present on Admission Any Indicators Present on Admission: No History of DVT/PE: No History of Uncontrolled Diabetes: No Urinary Catheter: No Decubitus Ulcer Present: No Past Patient History - Infectious Disease Hx of Infectious Diseases: None - Past Medical History & Family History Past Medical History?: Yes - Past Social History Smoking Status: Never Smoked - CARDIAC Hx Cardiac Disorders: Yes Hx Heart Attack: Yes Hx Hypercholesterolemia: Yes Hx Hypertension: Yes - PULMONARY Hx Respiratory Disorders: Yes Hx Asthma: Yes - NEUROLOGICAL Hx Neurological Disorder: Yes Hx Dementia: Yes Hx Dizziness: Yes - HEENT Hx HEENT Problems: Yes (SEE COMMENT) Other/Comment: has eyeglasses for reading but doesn't use. - RENAL Hx Chronic Kidney Disease: No - ENDOCRINE/METABOLIC Hx Endocrine Disorders: Yes Hx Diabetes Mellitus Type 2: Yes - HEMATOLOGICAL/ONCOLOGICAL Hx Blood Disorders: No - INTEGUMENTARY Hx Dermatological Problems: No - MUSCULOSKELETAL/RHEUMATOLOGICAL Hx Musculoskeletal Disorders: Yes Hx Arthritis: Yes Hx Back Pain: Yes Hx Falls: No Hx Osteoarthritis: Yes Hx Unsteady Gait: Yes - GASTROINTESTINAL Hx Gastrointestinal Disorders: Yes Hx Constipation: Yes Hx Gastritis: Yes Hx Nausea: Yes Hx Vomiting: Yes - GENITOURINARY/GYNECOLOGICAL Hx Genitourinary Disorders: No - PSYCHIATRIC Hx Psychophysiologic Disorder: Yes Hx Anxiety: Yes Hx Substance Use: No - SURGICAL HISTORY Hx Surgeries: Yes Hx Coronary Stent: Yes - ANESTHESIA Hx Anesthesia: Yes Hx Anesthesia Reactions: No Hx Malignant Hyperthermia: No Meds Allergies/Adverse Reactions: Allergies Allergy/AdvReac Type Severity Reaction Status Date / Time morphine Allergy Intermediate SWELLING Verified 08/17/16 12:31 Results - Vital Signs Recent Vital Signs: Last Vital Signs Temp 97.5 F L 09/07/16 18:01 Pulse 99 H 09/07/16 20:00 Resp 86 H 09/07/16 18:01 BP 120/71 09/07/16 18:01 Pulse Ox 95 09/07/16 18:01 - Labs Result Diagrams: 09/07/16 14:53 09/07/16 14:53 Labs: Laboratory Results - last 24 hr 09/07/16 16:23 POC Glucose (mg/dL) 265 H
[2016-09-07] MEDS: Sodium Chloride 0.9% 1,000 ML IV SCH (21:53)
[2016-09-08] MEDS: Sodium Chloride 0.9% 1,000 ML IV SCH ×2 (08:09→17:13)
[2016-09-08] MEDS: Enoxaparin 40 mg Syringe SC SCH (12:25)
[2016-09-08] MEDS: Promethazine 6.25 MG/5 ML CUP PO PRN (21:27)
--- NOTE | 2016-09-08 22:12 | CP.PCM.CON ---
History of Present Illness - History of Present Illness History of Present Illness: Patient seen and evaluated New onset A Fib Demenia and medication non compliance Not a candidate for oral ant coagulation Recommend ASa 81 plus Plavix 75 daily Past Patient History - Infectious Disease Hx of Infectious Diseases: None - Past Medical History & Family History Past Medical History?: Yes - Past Social History Smoking Status: Never Smoked - CARDIAC Hx Cardiac Disorders: Yes Hx Heart Attack: Yes Hx Hypercholesterolemia: Yes Hx Hypertension: Yes - PULMONARY Hx Respiratory Disorders: Yes Hx Asthma: Yes - NEUROLOGICAL Hx Neurological Disorder: Yes Hx Dementia: Yes Hx Dizziness: Yes - HEENT Hx HEENT Problems: Yes (SEE COMMENT) Other/Comment: has eyeglasses for reading but doesn't use. - RENAL Hx Chronic Kidney Disease: No - ENDOCRINE/METABOLIC Hx Endocrine Disorders: Yes Hx Diabetes Mellitus Type 2: Yes - HEMATOLOGICAL/ONCOLOGICAL Hx Blood Disorders: No - INTEGUMENTARY Hx Dermatological Problems: No - MUSCULOSKELETAL/RHEUMATOLOGICAL Hx Musculoskeletal Disorders: Yes Hx Arthritis: Yes Hx Back Pain: Yes Hx Falls: No Hx Osteoarthritis: Yes Hx Unsteady Gait: Yes - GASTROINTESTINAL Hx Gastrointestinal Disorders: Yes Hx Constipation: Yes Hx Gastritis: Yes Hx Nausea: Yes Hx Vomiting: Yes - GENITOURINARY/GYNECOLOGICAL Hx Genitourinary Disorders: No - PSYCHIATRIC Hx Psychophysiologic Disorder: Yes Hx Anxiety: Yes Hx Substance Use: No - SURGICAL HISTORY Hx Surgeries: Yes Hx Coronary Stent: Yes - ANESTHESIA Hx Anesthesia: Yes Hx Anesthesia Reactions: No Hx Malignant Hyperthermia: No Meds Allergies/Adverse Reactions: Allergies Allergy/AdvReac Type Severity Reaction Status Date / Time morphine Allergy Intermediate SWELLING Verified 08/17/16 12:31 - Medications Medications: Current Medications Donepezil HCl (Aricept) 10 mg PO HS [facility] Last Admin: 09/08/16 21:27 Dose: 10 mg Enoxaparin Sodium (Lovenox) 40 mg SC DAILY [facility] Last Admin: 09/08/16 12:25 Dose: 40 mg Gabapentin (Neurontin) 400 mg PO TID [facility] Last Admin: 09/08/16 17:08 Dose: 400 mg Glipizide (Glucotrol) 10 mg PO BID [facility] Last Admin: 09/08/16 17:08 Dose: 10 mg Sodium Chloride (Sodium Chloride 0.9%) 1,000 mls @ 100 mls/hr IV .Q10H [facility] Last Admin: 09/08/16 17:13 Dose: Not Given Memantine (Namenda) 5 mg PO DAILY [facility] Last Admin: 09/08/16 09:41 Dose: 5 mg Metformin HCl (Glucophage) 1,000 mg PO Q12 [facility] Last Admin: 09/08/16 21:27 Dose: 1,000 mg Metoprolol Tartrate (Lopressor) 50 mg PO Q12 [facility] Last Admin: 09/08/16 21:27 Dose: 50 mg Pneumococcal Polyvalent Vaccine (Pneumovax 23 Vaccine) 0.5 ml IM .ONCE ONE Stop: 09/09/16 10:01 Promethazine HCl (Phenergan Syrup) 6.25 mg PO Q6H PRN PRN Reason: Cough Last Admin: 09/08/16 21:27 Dose: 6.25 mg Quetiapine Fumarate (Seroquel) 25 mg PO HS [facility] Last Admin: 09/08/16 21:27 Dose: 25 mg Rosuvastatin Calcium (Crestor) 5 mg PO HS [facility] Last Admin: 09/08/16 21:27 Dose: 5 mg Sitagliptin Phosphate (Januvia) 50 mg PO DAILY [facility] Last Admin: 09/08/16 09:41 Dose: 50 mg Results - Vital Signs Recent Vital Signs: Last Vital Signs Temp 98.2 F 09/08/16 20:35 Pulse 94 H 09/08/16 20:35 Resp 18 09/08/16 20:35 BP 129/83 09/08/16 20:35 Pulse Ox 96 09/08/16 20:35 - Labs Result Diagrams: 09/07/16 14:53 09/07/16 14:53 Labs: Laboratory Results - last 24 hr 09/08/16 09/08/16 09/08/16 06:15 11:16 16:53 POC Glucose (mg/dL) 271 H 313 H 216 H 09/08/16 21:09 POC Glucose (mg/dL) 217 H
--- NOTE | 2016-09-08 22:45 | CP.PCM.PN ---
Subjective - Date & Time of Evaluation Date of Evaluation: 09/08/16 Time of Evaluation: 22:44 Objective - Vital Signs/Intake and Output Vital Signs (last 24 hours): Temp Pulse Resp BP Pulse Ox 98.2 F 94 H 18 129/83 96 09/08/16 20:35 09/08/16 20:35 09/08/16 20:35 09/08/16 20:35 09/08/16 20:35 Intake and Output: 09/08/16 09/09/16 18:59 06:59 Intake Total 1160 900 Balance 1160 900 - Medications Medications: Current Medications Donepezil HCl (Aricept) 10 mg PO HS [facility] Last Admin: 09/08/16 21:27 Dose: 10 mg Enoxaparin Sodium (Lovenox) 40 mg SC DAILY [facility] Last Admin: 09/08/16 12:25 Dose: 40 mg Gabapentin (Neurontin) 400 mg PO TID [facility] Last Admin: 09/08/16 17:08 Dose: 400 mg Glipizide (Glucotrol) 10 mg PO BID [facility] Last Admin: 09/08/16 17:08 Dose: 10 mg Sodium Chloride (Sodium Chloride 0.9%) 1,000 mls @ 100 mls/hr IV .Q10H [facility] Last Admin: 09/08/16 17:13 Dose: Not Given Memantine (Namenda) 5 mg PO DAILY [facility] Last Admin: 09/08/16 09:41 Dose: 5 mg Metformin HCl (Glucophage) 1,000 mg PO Q12 [facility] Last Admin: 09/08/16 21:27 Dose: 1,000 mg Metoprolol Tartrate (Lopressor) 50 mg PO Q12 [facility] Last Admin: 09/08/16 21:27 Dose: 50 mg Pneumococcal Polyvalent Vaccine (Pneumovax 23 Vaccine) 0.5 ml IM .ONCE ONE Stop: 09/09/16 10:01 Promethazine HCl (Phenergan Syrup) 6.25 mg PO Q6H PRN PRN Reason: Cough Last Admin: 09/08/16 21:27 Dose: 6.25 mg Quetiapine Fumarate (Seroquel) 25 mg PO HS [facility] Last Admin: 09/08/16 21:27 Dose: 25 mg Rosuvastatin Calcium (Crestor) 5 mg PO HS [facility] Last Admin: 09/08/16 21:27 Dose: 5 mg Sitagliptin Phosphate (Januvia) 50 mg PO DAILY [facility] Last Admin: 09/08/16 09:41 Dose: 50 mg - Labs Labs: PT 12.7 SECONDS (9.7-12.2) H 09/07/16 14:53 INR 1.1 09/07/16 14:53 APTT 28 SECONDS (21-34) 09/07/16 14:53
[2016-09-08 23:45] VITALS: O2SAT 95
--- NOTE | 2016-09-09 00:34 | CARD ---
APPROVED REPORT EKG Measurement Heart [id number] <Conclusion> Atrial fibrillation with rapid ventricular response with premature ventricular or aberrantly conducted complexes Inferior infarct, age undetermined Anterior infarct, age undetermined Abnormal ECG
[2016-09-09] MEDS: Sodium Chloride 0.9% 1,000 ML IV SCH (07:04)
[2016-09-09] MEDS ORDERED: Pneumococcal 23-Valent Vaccine IM ONE (10:00)
[2016-09-09] MEDS: Promethazine 6.25 MG/5 ML CUP PO PRN (10:05)
[2016-09-09] MEDS: Enoxaparin 40 mg Syringe SC SCH (10:05)
--- NOTE | 2016-09-09 14:39 | CP.PCM.PN ---
Subjective - Date & Time of Evaluation Date of Evaluation: 09/09/16 Time of Evaluation: 14:39 - Subjective Subjective: PT CASE AND DISPO DISCUSSED WITH DR. CEJA AND PT CLEARED FOR D/C TO [facility]. PT ACCEPTED AT [facility] PER NELLY BROWN AND D/C THERE THIS AFTERNOON. NELLY MADE SON AWARE OF PLAN AND HE IS IN AGREEMENT. PT REMAINS CALM, COOPERATIVE AND STABLE. AMBULANCE TRANSPORT ARRANGED BY NELLY. NO FURTHER ORDERS. Objective - Vital Signs/Intake and Output Vital Signs (last 24 hours): Temp Pulse Resp BP Pulse Ox 98.5 F 94 H 18 132/91 H 95 09/09/16 08:02 09/09/16 08:02 09/09/16 08:02 09/09/16 08:02 09/09/16 08:02 Intake and Output: 09/09/16 09/09/16 06:59 18:59 Intake Total 900 Balance 900 - Medications Medications: Current Medications Donepezil HCl (Aricept) 10 mg PO HS [facility] Last Admin: 09/08/16 21:27 Dose: 10 mg Enoxaparin Sodium (Lovenox) 40 mg SC DAILY [facility] Last Admin: 09/09/16 10:05 Dose: 40 mg Gabapentin (Neurontin) 400 mg PO TID [facility] Last Admin: 09/09/16 13:52 Dose: 400 mg Glipizide (Glucotrol) 10 mg PO BID [facility] Last Admin: 09/09/16 10:05 Dose: 10 mg Sodium Chloride (Sodium Chloride 0.9%) 1,000 mls @ 100 mls/hr IV .Q10H [facility] Last Admin: 09/09/16 07:04 Dose: 100 mls/hr Memantine (Namenda) 5 mg PO DAILY [facility] Last Admin: 09/09/16 10:05 Dose: 5 mg Metformin HCl (Glucophage) 1,000 mg PO Q12 [facility] Last Admin: 09/09/16 10:05 Dose: 1,000 mg Metoprolol Tartrate (Lopressor) 50 mg PO Q12 [facility] Last Admin: 09/09/16 10:05 Dose: 50 mg Promethazine HCl (Phenergan Syrup) 6.25 mg PO Q6H PRN PRN Reason: Cough Last Admin: 09/09/16 10:05 Dose: 6.25 mg Quetiapine Fumarate (Seroquel) 25 mg PO HS [facility] Last Admin: 09/08/16 21:27 Dose: 25 mg Rosuvastatin Calcium (Crestor) 5 mg PO HS [facility] Last Admin: 09/08/16 21:27 Dose: 5 mg Sitagliptin Phosphate (Januvia) 50 mg PO DAILY [facility] Last Admin: 09/09/16 10:05 Dose: 50 mg - Labs Labs: PT 12.7 SECONDS (9.7-12.2) H 09/07/16 14:53 INR 1.1 09/07/16 14:53 APTT 28 SECONDS (21-34) 09/07/16 14:53
[2016-09-09 16:15] VITALS: BP 111/73; RESP 20; TEMP 97.7
[2016-09-10 12:19] VITALS: PULSE 92
== END 2016-09-09 20:17 | DRG 310 ==
LOC: C.ER 14:04 → C.9E 15:29 → C.5T 17:14
PROVIDERS: ADMIT Internal Medicine; ATTEND Internal Medicine
DX: I48.91 Unspecified atrial fibrillation (principal); F03.90 Unspecified dementia, unspecified severity, without behavioral disturbance, psychotic disturbance, mood disturbance, and anxiety; I11.0 Hypertensive heart disease with heart failure; E11.42 Type 2 diabetes mellitus with diabetic polyneuropathy; I50.9 Heart failure, unspecified; E11.65 Type 2 diabetes mellitus with hyperglycemia; E78.00 Pure hypercholesterolemia, unspecified; I25.2 Old myocardial infarction; I73.9 Peripheral vascular disease, unspecified; J45.909 Unspecified asthma, uncomplicated; Z87.891 Personal history of nicotine dependence; Z91.14 Patient's other noncompliance with medication regimen; Z95.5 Presence of coronary angioplasty implant and graft; I25.10 Atherosclerotic heart disease of native coronary artery without angina pectoris

== ENCOUNTER 2016-09-21 13:41 | Inpatient (IN) | payer MEDICARE, MEDICAID ==
[2016-09-21 13:41] VITALS: PULSE 113; BMI 26.6
--- NOTE | 2016-09-21 14:32 | C.PDOC ---
History Of Present Illness 76 year old male who was sent to the ER by Dr. Jeronimo who noticed he appeared short of breath and more confused than usual. Patient is confused about where he is or how he got to the hospital; he appears short of breath but is not verbalizing any physical complaints at this time. Time Seen by Provider: 09/21/16 14:22 Chief Complaint (Nursing): Shortness Of Breath History Per: Other (PMD) Onset/Duration Of Symptoms: Hrs Current Symptoms Are (Timing): Still Present Initiating Event: Upper Respiratory Illness Current Respiratory Medications: Other (Not known) Associated Symptoms: denies: Fever, Chills, Chest Pain Recent travel outside of the [place]: No Past Medical History Reviewed: Historical Data, Nursing Documentation, Vital Signs Vital Signs: Last Vital Signs Temp 98.4 F 09/21/16 14:32 Pulse 61 09/21/16 14:32 Resp 20 09/21/16 14:32 BP 124/75 09/21/16 14:32 Pulse Ox 100 09/21/16 14:43 - Medical History PMH: Anxiety, Arthritis, Asthma, Back Problems (Chronic Pain), Dementia, Diabetes, Gastritis, HTN, Hypercholesterolemia, Hyperlipidemia Surgical History: Coronary Stent - [facility] Procedures CORONAR ARTERIOGR-2 CATH (12/02/13) LEFT HEART CARDIAC CATH (12/02/13) LT HEART ANGIOCARDIOGRAM (12/02/13) Family History: States: Unknown Family Hx - Social History Hx Tobacco Use: Yes Hx Alcohol Use: No Hx Substance Use: No - Immunization History Hx Tetanus Toxoid Vaccination: No Hx Influenza Vaccination: No Hx Pneumococcal Vaccination: No Review Of Systems Constitutional: Negative for: Fever, Chills Cardiovascular: Negative for: Chest Pain Respiratory: Positive for: Shortness of Breath Gastrointestinal: Negative for: Nausea, Vomiting Physical Exam - Physical Exam Appears: Non-toxic, Other (Awake, Alert) Skin: Normal Color, Warm, Dry Head: Atraumatic, Normacephalic Oral Mucosa: Moist Chest: Symmetrical, No Tenderness Cardiovascular: Rhythm Regular, No Murmur Respiratory: Normal Breath Sounds, No Rales, No Rhonchi, No Wheezing Gastrointestinal/Abdominal: Soft, No Tenderness Extremity: Normal ROM, No Pedal Edema ED Course And Treatment - Laboratory Results Result Diagrams: 09/21/16 14:55 09/21/16 14:55 O2 Sat by Pulse Oximetry: 100 Progress Note: EKG, blood work, CXR, and urinalysis ordered. Medical Decision Making Medical Decision Making: Patient visibly SOB, he is confused. Spoke with Dr. Jeronimo, he agrees the patient is altered. Patient has not given urine yet, but needs hospitalization based on AMS Disposition Discussed With : Freida Jeronimo Doctor Will See Patient In The: Hospital - Disposition Disposition: HOSPITALIZED Disposition Time: 14:43 Condition: GUARDED - Clinical Impression Clinical Impression: Dyspnea, Altered mental status - Scribe Statement The provider has reviewed the documentation as recorded by the Scribe Demond Alcantara All medical record entries made by the Scribe were at my direction and personally dictated by me. I have reviewed the chart and agree that the record accurately reflects my personal performance of the history, physical exam, medical decision making, and the department course for this patient. I have also personally directed, reviewed, and agree with the discharge instructions and disposition. Decision To Admit - Pt Status Changed To: Hospital Disposition Of: Inpatient - Admit Certification Admit to Inpatient:: After my assessment, the patient will require hospitalization for at least two midnights. This is because of the severity of symptoms shown, intensity of services needed, and/or the medical risk in this patient being treated as an outpatient. - InPatient: Physician Admission Certification: I certify that this patient requires 2 or more midnights of care for the following reason:: AMS, SOB, unknown eteology - . Bed Request Type: Telemetry Patient Diagnosis: Dyspnea, Altered mental status
--- NOTE | 2016-09-21 14:34 | C.PDOC ---
Time Seen by Provider: 09/21/16 14:22 Chief Complaint (Nursing): Shortness Of Breath Past Medical History Vital Signs: Last Vital Signs Temp 97.4 F L 09/21/16 13:50 Pulse 64 09/21/16 13:50 Resp 18 09/21/16 13:50 BP 147/85 09/21/16 13:50 Pulse Ox 100 09/21/16 13:50 - Medical History PMH: Anxiety, Arthritis, Asthma, Back Problems (Chronic Pain), Dementia, Diabetes, Gastritis, HTN, Hypercholesterolemia, Hyperlipidemia Denies: Chronic Kidney Disease Surgical History: Coronary Stent - [facility] Procedures CORONAR ARTERIOGR-2 CATH (12/02/13) LEFT HEART CARDIAC CATH (12/02/13) LT HEART ANGIOCARDIOGRAM (12/02/13) Family History: States: Unknown Family Hx - Social History Hx Tobacco Use: Yes Hx Alcohol Use: No Hx Substance Use: No - Immunization History Hx Tetanus Toxoid Vaccination: No Hx Influenza Vaccination: No Hx Pneumococcal Vaccination: No ED Course And Treatment O2 Sat by Pulse Oximetry: 100 Disposition - Disposition Forms: the grafter (Macedonian)
--- NOTE | 2016-09-21 14:54 | RAD ---
HISTORY: Sepsis Patient COMPARISON: 09/07/2016 FINDINGS: LUNGS: The lungs are well inflated and clear. There is interval improved aeration in the right lower lobe with residual mild atelectasis. Punctate radiodensities overlying right upper lobe, nonspecific. PLEURA: No significant pleural effusion identified, no pneumothorax apparent. CARDIOVASCULAR: Normal. OSSEOUS STRUCTURES: No significant abnormalities. VISUALIZED UPPER ABDOMEN: Normal. OTHER FINDINGS: None. IMPRESSION: Near complete resolution of presumable right lower lobe pneumonia with residual atelectasis.
[2016-09-21 14:57] LABS: VENOUS BLOOD GAS BASE EXCESS 5.7 mmol/L (0.0-2.0); VENOUS BLOOD GAS PCO2 35 mmHg (40-60); VENOUS BLOOD PH 7.52 (7.32-7.43)
[2016-09-21 15:00] LABS: BASO # 0.1 K/uL (0.0-0.2); BASO % 1.1 % (0.0-2.0); EOS # 0.1 K/uL (0.0-0.7); EOS % 1.7 % (0.0-4.0); HEMATOCRIT 40.8 % (35.0-51.0); LYMPH # 1.5 K/uL (1.0-4.3); LYMPH % 26.2 % (20.0-40.0); MEAN CELL VOLUME 82.8 fL (80.0-94.0); MEAN CORPUSCULAR HEMOGLOBIN 28.5 pg (27.0-31.0); MEAN CORPUSCULAR HGB CONC 34.4 g/dL (33.0-37.0); MEAN PLATELET VOLUME 7.5 fL (7.2-11.7); MONO # 0.5 K/uL (0.0-0.8); MONO % 9.1 % (0.0-10.0); RED CELL DISTRIBUTION WIDTH 13.3 % (11.5-14.5); WHITE BLOOD COUNT 5.8 K/uL (4.8-10.8)
[2016-09-21 15:09] LABS: CHLORIDE 95 mmol/L (98-107)
[2016-09-21 15:10] LABS: SODIUM 138 mmol/L (132-148)
[2016-09-21 15:12] LABS: CHOLESTEROL 181 mg/dL (0-199)
[2016-09-21 15:13] LABS: ALKALINE PHOSPHATASE 126 U/L (38-126); ALT/SGPT 19 U/L (21-72); AST/SGOT 15 U/L (17-59); BILIRUBIN,TOTAL 0.7 mg/dL (0.2-1.3); BLOOD UREA NITROGEN 15 mg/dL (9-20); CARBON DIOXIDE 28 mmol/L (22-30); GFR AFRICAN-AMERICAN > 60; GLUCOSE,RANDOM 290 mg/dL (75-110); TOTAL PROTEIN 7.8 g/dL (6.3-8.3)
[2016-09-21 15:14] LABS: CALCIUM 9.7 mg/dl (8.6-10.4)
[2016-09-21 16:37] LABS: RBC URINE 8 /hpf (0-3); URINE BACTERIA OCC (<OCC); URINE BILIRUBIN NEGATIVE (NEGATIVE); URINE BLOOD NEGATIVE (NEGATIVE); URINE COLOR Yellow (YELLOW); URINE GLUCOSE (UA) 3+ mg/dL (Normal); URINE KETONE TRACE mg/dL (NEGATIVE); URINE LEUKOCYTE ESTERASE TRACE Leu/uL (Negative); URINE PROTEIN 1+ mg/dL (NEGATIVE); URINE UROBILINOGEN NORMAL mg/dL (0.2-1.0); WBC URINE 17 /hpf (0-5)
[2016-09-22 04:44] LABS: CHLORIDE 96 mmol/L (98-107); POTASSIUM 3.9 mmol/L (3.6-5.2); SODIUM 136 mmol/L (132-148)
[2016-09-22 04:45] LABS: MEAN PLATELET VOLUME 7.9 fL (7.2-11.7); RED CELL DISTRIBUTION WIDTH 13.5 % (11.5-14.5); WHITE BLOOD COUNT 5.2 K/uL (4.8-10.8)
[2016-09-22 04:46] LABS: BILIRUBIN,TOTAL 0.5 mg/dL (0.2-1.3); GFR AFRICAN-AMERICAN > 60
[2016-09-22 04:47] LABS: ALKALINE PHOSPHATASE 102 U/L (38-126); ALT/SGPT 19 U/L (21-72); AST/SGOT 15 U/L (17-59); BLOOD UREA NITROGEN 20 mg/dL (9-20); CALCIUM 8.5 mg/dl (8.6-10.4); CARBON DIOXIDE 27 mmol/L (22-30); GLUCOSE,RANDOM 319 mg/dL (75-110); TOTAL PROTEIN 6.7 g/dL (6.3-8.3)
[2016-09-22 05:00] LABS: BASO # 0.1 K/uL (0.0-0.2); BASO % 1.7 % (0.0-2.0); EOS # 0.1 K/uL (0.0-0.7); EOS % 2.9 % (0.0-4.0); HEMATOCRIT 38.2 % (35.0-51.0); LYMPH # 1.5 K/uL (1.0-4.3); LYMPH % 29.6 % (20.0-40.0); MEAN CELL VOLUME 83.2 fL (80.0-94.0); MEAN CORPUSCULAR HEMOGLOBIN 28.5 pg (27.0-31.0); MEAN CORPUSCULAR HGB CONC 34.2 g/dL (33.0-37.0); MONO # 0.6 K/uL (0.0-0.8); MONO % 11.5 % (0.0-10.0); NRBC % 0.2 % (0.0-2.0)
--- NOTE | 2016-09-22 06:48 | CP.PCM.HP ---
History of Present Illness - History of Present Illness History of Present Illness: Patient was having increasing weakness. History present illness: 76-year-old male with history of diabetes hypertension high cholesterol peripheral vascular disease or spinal stenosis with bilateral leg pain. Patient was recently hospitalized with the worsening delirium and dementia. [facility], but he signed AGAINST MEDICAL ADVICE. Patient came to the emergency room with the similar symptoms increasing feeling of pain, chest discomfort, and shortness of breath, weakness. In the emergency room patient was initially evaluated, nonspecific clinical findings. Patient needed hospitalization because of his worsening dementia and delirium. Past medical history: Hypertension diabetes high cholesterol peripheral vascular disease spinal stenosis noncompliance, dementia Allergy: No known drug allergy Personal history: Ex-smoker, used to drink alcohol in the past, not on any drugs now Family history noncontributory Review of system noted from the chart. No headache, but the feeling weakness tiredness and easy fatigability. Also somewhat depressed. Episodes of delirium noted Vital signs reviewed No neck vein distention noted Chest good air entry bilaterally, no wheezing or rales noted CVS regular heart sound, no murmur noted Abdomen soft, nontender. 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 Patient admitted now with the delirium. Worsening mental status changes. Unclear source for shortness of breath. 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 Patient will be closely monitored. Glucose control. We'll speak to the family regarding the placement. We will follow the patient Present on Admission - Present on Admission Any Indicators Present on Admission: No History of DVT/PE: No Urinary Catheter: No Decubitus Ulcer Present: No Past Patient History - Infectious Disease Hx of Infectious Diseases: None - Past Medical History & Family History Past Medical History?: Yes - Past Social History Smoking Status: Former Smoker - CARDIAC Hx Hypercholesterolemia: Yes Hx Hypertension: Yes - PULMONARY Hx Asthma: Yes - NEUROLOGICAL Hx Dementia: Yes - HEENT Hx HEENT Problems: Yes (SEE COMMENT) Other/Comment: has eyeglasses for reading but doesn't use. - RENAL Hx Chronic Kidney Disease: No - ENDOCRINE/METABOLIC Hx Diabetes Mellitus Type 2: Yes - HEMATOLOGICAL/ONCOLOGICAL Hx Blood Disorders: No - INTEGUMENTARY Hx Dermatological Problems: No - MUSCULOSKELETAL/RHEUMATOLOGICAL Hx Falls: No - GASTROINTESTINAL Hx Gastritis: Yes - GENITOURINARY/GYNECOLOGICAL Hx Genitourinary Disorders: No - PSYCHIATRIC Hx Substance Use: No - SURGICAL HISTORY Hx Coronary Stent: Yes - ANESTHESIA Hx Anesthesia: Yes Hx Anesthesia Reactions: No Hx Malignant Hyperthermia: No Meds Allergies/Adverse Reactions: Allergies Allergy/AdvReac Type Severity Reaction Status Date / Time morphine Allergy Intermediate SWELLING Verified 09/21/16 14:14 Results - Vital Signs Recent Vital Signs: Last Vital Signs Temp 98.0 F 09/21/16 23:55 Pulse 68 09/21/16 23:55 Resp 20 09/21/16 23:55 BP 161/66 H 09/21/16 23:55 Pulse Ox 96 09/21/16 23:55 - Labs Result Diagrams: 09/22/16 04:39 09/22/16 04:39 Labs: Laboratory Results - last 24 hr 09/21/16 09/22/16 09/22/16 21:12 04:39 04:39 WBC 5.2 RBC 4.59 Hgb 13.1 Hct 38.2 MCV 83.2 MCH 28.5 MCHC 34.2 RDW 13.5 Plt Count 298 MPV 7.9 Neut % (Auto) 54.3 Lymph % (Auto) 29.6 [place] % (Auto) 11.5 H Eos % (Auto) 2.9 Baso % (Auto) 1.7 Neut # 2.9 Lymph # 1.5 [place] # 0.6 Eos # 0.1 Baso # 0.1 Sodium 136 Potassium 3.9 Chloride 96 L Carbon Dioxide 27 Anion Gap 17 BUN 20 Creatinine 0.8 Est GFR ( Amer) > 60 Est GFR (Non-Af Amer) > 60 POC Glucose (mg/dL) 332 H Random Glucose 319 H Calcium 8.5 L Total Bilirubin 0.5 AST 15 L ALT 19 L Alkaline Phosphatase 102 Total Creatine Kinase 35 L CK-MB (Mass) 0.39 Troponin I, Quant < 0.0120 Total Protein 6.7 Albumin 3.3 L Globulin 3.4 Albumin/Globulin Ratio 1.0
[2016-09-22] MEDS ORDERED: (Lantus) Insulin Glargine, Recombinant SC SCH (22:00)
[2016-09-23 02:05] VITALS: RESP 20; O2SAT 96
--- NOTE | 2016-09-23 07:56 | CARD ---
APPROVED REPORT EKG Measurement Heart [id number] <Conclusion> Normal sinus rhythm Nonspecific T wave abnormality Prolonged QT Abnormal ECG
[2016-09-23 08:22] VITALS: BP 128/77; TEMP 97.9
[2016-09-23 13:31] VITALS: PULSE 71
--- NOTE | 2016-09-23 15:26 | CP.PCM.PN ---
Subjective - Date & Time of Evaluation Date of Evaluation: 09/22/16 Time of Evaluation: 17:00 - Subjective Subjective: PT ADMITTED PRIOR TO [facility] FROM HOSPITAL YESTERDAY WITH [facility]. PT TO BE ON A CLOSE OBSERVATION AND SAFETY WATCH FOR RISK OF ELOPEMENT. PT CONFUSED 2/2 DEMENTIA. NO FURTHER ORDERS. TO BE F/U BY DR. CEJA WELL. Objective - Vital Signs/Intake and Output Vital Signs (last 24 hours): Temp Pulse Resp BP Pulse Ox 97.9 F 71 20 128/77 96 09/23/16 08:21 09/23/16 12:21 09/23/16 08:21 09/23/16 08:21 09/23/16 08:21 - Medications Medications: Current Medications Aspirin (Ecotrin) 81 mg PO DAILY [facility] Last Admin: 09/23/16 10:01 Dose: 81 mg Clopidogrel Bisulfate (Plavix) 75 mg PO DAILY [facility] Last Admin: 09/23/16 10:01 Dose: 75 mg Donepezil HCl (Aricept) 10 mg PO HS [facility] Last Admin: 09/22/16 22:26 Dose: 10 mg Glipizide (Glucotrol) 10 mg PO BID [facility] Last Admin: 09/23/16 10:01 Dose: 10 mg Insulin Glargine (Lantus) 25 unit SC HS [facility] Last Admin: 09/22/16 22:26 Dose: 25 units Losartan Potassium (Cozaar) 50 mg PO DAILY [facility] Last Admin: 09/23/16 10:01 Dose: 50 mg Memantine (Namenda) 5 mg PO DAILY [facility] Last Admin: 09/23/16 10:01 Dose: 5 mg Metformin HCl (Glucophage) 1,000 mg PO BIDBS [facility] Last Admin: 09/23/16 08:30 Dose: 1,000 mg Metoprolol Tartrate (Lopressor) 50 mg PO BID [facility] Last Admin: 09/23/16 10:01 Dose: 50 mg Quetiapine Fumarate (Seroquel) 25 mg PO HS [facility] Last Admin: 09/22/16 22:26 Dose: 25 mg Rosuvastatin Calcium (Crestor) 5 mg PO HS [facility] Last Admin: 09/22/16 22:26 Dose: 5 mg Sitagliptin Phosphate (Januvia) 50 mg PO DAILY [facility] Last Admin: 09/23/16 10:01 Dose: 50 mg - Labs Labs: 09/22/16 04:39 09/22/16 04:39
--- NOTE | 2016-09-29 00:56 | CP.PCM.DIS ---
Provider - Provider Date of Admission: 09/21/16 16:06 Attending physician: Freida Jeronimo MD Time Spent in preparation of Discharge (in minutes): 45 Hospital Course - Lab Results Lab Results: Most Recent Lab Values WBC 5.2 K/uL (4.8-10.8) 09/22/16 04:39 RBC 4.59 Mil/uL (4.40-5.90) 09/22/16 04:39 Hgb 13.1 g/dL (12.0-18.0) 09/22/16 04:39 Hct 38.2 % (35.0-51.0) 09/22/16 04:39 MCV 83.2 fL (80.0-94.0) 09/22/16 04:39 MCH 28.5 pg (27.0-31.0) 09/22/16 04:39 MCHC 34.2 g/dL (33.0-37.0) 09/22/16 04:39 RDW 13.5 % (11.5-14.5) 09/22/16 04:39 Plt Count 298 K/uL (130-400) 09/22/16 04:39 MPV 7.9 fL (7.2-11.7) 09/22/16 04:39 Neut % (Auto) 54.3 % (50.0-75.0) 09/22/16 04:39 Lymph % (Auto) 29.6 % (20.0-40.0) 09/22/16 04:39 Placer % (Auto) 11.5 % (0.0-10.0) H 09/22/16 04:39 Eos % (Auto) 2.9 % (0.0-4.0) 09/22/16 04:39 Baso % (Auto) 1.7 % (0.0-2.0) 09/22/16 04:39 Neut # 2.9 K/uL (1.8-7.0) 09/22/16 04:39 Lymph # 1.5 K/uL (1.0-4.3) 09/22/16 04:39 Placer # 0.6 K/uL (0.0-0.8) 09/22/16 04:39 Eos # 0.1 K/uL (0.0-0.7) 09/22/16 04:39 Baso # 0.1 K/uL (0.0-0.2) 09/22/16 04:39 D-Dimer, Quantitative < 200 ng/mlDDU (0-243) 09/21/16 14:55 pO2 12 mm/Hg (30-55) L 09/21/16 14:53 VBG pH 7.52 (7.32-7.43) H 09/21/16 14:53 VBG pCO2 35 mmHg (40-60) L 09/21/16 14:53 VBG HCO3 27.2 mmol/L 09/21/16 14:53 VBG Total CO2 29.7 mmol/L (22-28) H 09/21/16 14:53 VBG O2 Sat (Calc) 22.4 % (40-65) L 09/21/16 14:53 VBG Base Excess 5.7 mmol/L (0.0-2.0) H 09/21/16 14:53 VBG Potassium 3.9 mmol/L (3.6-5.2) 09/21/16 14:53 Sodium 138.0 mmol/l (132-148) 09/21/16 14:53 Chloride 102.0 mmol/L (98-107) 09/21/16 14:53 Glucose 282 mg/dl (75-110) H 09/21/16 14:53 Lactate 2.1 mmol/L (0.7-2.1) 09/21/16 14:53 Sodium 136 mmol/L (132-148) 09/22/16 04:39 Potassium 3.9 mmol/L (3.6-5.2) 09/22/16 04:39 Chloride 96 mmol/L (98-107) L 09/22/16 04:39 Carbon Dioxide 27 mmol/L (22-30) 09/22/16 04:39 Anion Gap 17 (10-20) 09/22/16 04:39 BUN 20 mg/dL (9-20) 09/22/16 04:39 Creatinine 0.8 MG/DL (0.8-1.5) 09/22/16 04:39 Est GFR ( Amer) > 60 09/22/16 04:39 Est GFR (Non-Af Amer) > 60 09/22/16 04:39 POC Glucose (mg/dL) 236 mg/dL (65-110) H 09/23/16 11:03 Random Glucose 319 mg/dL (75-110) H 09/22/16 04:39 Calcium 8.5 mg/dl (8.6-10.4) L 09/22/16 04:39 Total Bilirubin 0.5 mg/dL (0.2-1.3) 09/22/16 04:39 AST 15 U/L (17-59) L 09/22/16 04:39 ALT 19 U/L (21-72) L 09/22/16 04:39 Alkaline Phosphatase 102 U/L (38-126) 09/22/16 04:39 Total Creatine Kinase 35 U/L (55-170) L 09/22/16 04:39 CK-MB (Mass) 0.39 ng/mL (0.0-3.38) 09/22/16 04:39 Troponin I < 0.0120 ng/mL (0.00-0.120) 09/21/16 14:55 Troponin I, Quant < 0.0120 ng/mL (0.00-0.120) 09/22/16 04:39 NT-Pro-B Natriuret Pep 174 pg/mL (0-900) 09/21/16 14:55 Total Protein 6.7 g/dL (6.3-8.3) 09/22/16 04:39 Albumin 3.3 g/dL (3.5-5.0) L 09/22/16 04:39 Globulin 3.4 gm/dL (2.2-3.9) 09/22/16 04:39 Albumin/Globulin Ratio 1.0 (1.0-2.1) 09/22/16 04:39 Triglycerides 152 mg/dL (0-149) H 09/21/16 14:55 Cholesterol 181 mg/dL (0-199) 09/21/16 14:55 LDL Cholesterol Direct 123 mg/dL (0-129) 09/21/16 14:55 HDL Cholesterol 34 mg/dL (30-70) 09/21/16 14:55 Venous Blood Potassium 3.9 mmol/L (3.6-5.2) 09/21/16 14:53 Urine Color Yellow (YELLOW) 09/21/16 15:47 Urine Clarity Hazy (Clear) 09/21/16 15:47 Urine pH 6.0 (5.0-8.0) 09/21/16 15:47 Ur Specific [place] 1.023 (1.003-1.030) 09/21/16 15:47 Urine Protein 1+ mg/dL (NEGATIVE) H 09/21/16 15:47 Urine Glucose (UA) 3+ mg/dL (Normal) H 09/21/16 15:47 Urine Ketones Trace mg/dL (NEGATIVE) 09/21/16 15:47 Urine Blood Negative (NEGATIVE) 09/21/16 15:47 Urine Nitrate Negative (NEGATIVE) 09/21/16 15:47 Urine Bilirubin Negative (NEGATIVE) 09/21/16 15:47 Urine Urobilinogen Normal mg/dL (0.2-1.0) 09/21/16 15:47 Ur Leukocyte Esterase Trace Dung/uL (Negative) 09/21/16 15:47 Urine WBC (Auto) 17 /hpf (0-5) H 09/21/16 15:47 Urine RBC (Auto) 8 /hpf (0-3) H 09/21/16 15:47 Ur Squamous Epith Cells 5 /hpf (0-5) 09/21/16 15:47 Urine Bacteria Occ (<OCC) H 09/21/16 15:47 Urine Sperm (Auto) Many /hpf (NONE) H 09/21/16 15:47 - Hospital Course Hospital Course: Patient was having increasing weakness. History present illness: 76-year-old male with history of diabetes hypertension high cholesterol peripheral vascular disease or spinal stenosis with bilateral leg pain. Patient was recently hospitalized with the worsening delirium and dementia. Patient was sent to detention, but he signed AGAINST MEDICAL ADVICE. Patient came to the emergency room with the similar symptoms increasing feeling of pain, chest discomfort, and shortness of breath, weakness. In the emergency room patient was initially evaluated, nonspecific clinical findings. Patient needed hospitalization because of his worsening dementia and delirium. Past medical history: Hypertension diabetes high cholesterol peripheral vascular disease spinal stenosis noncompliance, dementia Allergy: No known drug allergy Personal history: Ex-smoker, used to drink alcohol in the past, not on any drugs now Family history noncontributory Review of system noted from the chart. No headache, but the feeling weakness tiredness and easy fatigability. Also somewhat depressed. Episodes of delirium noted Vital signs reviewed No neck vein distention noted Chest good air entry bilaterally, no wheezing or rales noted CVS regular heart sound, no murmur noted Abdomen soft, nontender. 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 Patient admitted now with the delirium. Worsening mental status changes. Unclear source for shortness of breath. 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 Patient will be closely monitored. Glucose control. We'll speak to the family regarding the placement. We will follow the patientWhile patient was being monitored 121. He actually left the hospital without telling anybody. Immediately code echo was called, I informed the nurse to call and alert the police. Patient was not found in the floor. Patient most likely left the hospital AGAINST MEDICAL ADVICE. Patient's family was attempted to call and inform. No response at the time. We'll continue to monitor the situation. We'll try to restart the family again. We'll follow the patient Discharge Plan - Follow Up Plan Condition: GUARDED Disposition: AGAINST MEDICAL ADVICE
== END 2016-09-23 14:50 | disposition left against medical advice (07) | DRG 948 ==
LOC: C.ER 13:41 → C.9E 16:06 → C.6T 17:00
PROVIDERS: ADMIT Internal Medicine; ATTEND Internal Medicine
DX: R41.82 Altered mental status, unspecified (principal); F03.90 Unspecified dementia, unspecified severity, without behavioral disturbance, psychotic disturbance, mood disturbance, and anxiety; E11.9 Type 2 diabetes mellitus without complications; R06.02 Shortness of breath; F41.9 Anxiety disorder, unspecified; J45.909 Unspecified asthma, uncomplicated; I10 Essential (primary) hypertension; E78.00 Pure hypercholesterolemia, unspecified; E78.5 Hyperlipidemia, unspecified; Z95.5 Presence of coronary angioplasty implant and graft; F17.210 Nicotine dependence, cigarettes, uncomplicated

== ENCOUNTER 2016-09-23 16:22 | Inpatient (IN) | payer MEDICARE, MEDICAID ==
[2016-09-23 16:22] VITALS: PULSE 113; BMI 26.6
--- NOTE | 2016-09-23 16:54 | C.PDOC ---
History Of Present Illness 76 y/o male, whose PMHx includes dementia, is brought to the ED by EMS after being found on the street with "IV in place". Patient was admitted here under Dr. Jeronimo's service for altered mental status today. Pt had eloped despite 1 :1 on floor. Otherwise, no complaints at this time. Time Seen by Provider: 09/23/16 16:49 Chief Complaint (Nursing): Medical Clearance History Per: Patient History/Exam Limitations: no limitations Onset/Duration Of Symptoms: Gradual Current Symptoms Are (Timing): Still Present Severity: None Pain Scale Rating Of: 0 Recent travel outside of the [place]: No Additional History Per: Patient Past Medical History Reviewed: Historical Data, Nursing Documentation, Vital Signs Vital Signs: Last Vital Signs Temp 97.5 F L 09/24/16 08:00 Pulse 80 09/24/16 08:00 Resp 20 09/24/16 08:00 BP 111/71 09/24/16 08:00 Pulse Ox 97 09/24/16 08:00 - Medical History PMH: Anxiety, Arthritis, Asthma, Back Problems (Chronic Pain), Dementia, Diabetes, Gastritis, HTN, Hypercholesterolemia, Hyperlipidemia Denies: Chronic Kidney Disease Surgical History: Coronary Stent - [facility] CORONAR ARTERIOGR-2 CATH (12/02/13) LEFT HEART CARDIAC CATH (12/02/13) LT HEART ANGIOCARDIOGRAM (12/02/13) Family History: States: Unknown Family Hx - Social History Hx Tobacco Use: Yes Hx Alcohol Use: No Hx Substance Use: No - Immunization History Hx Tetanus Toxoid Vaccination: No Hx Influenza Vaccination: No Hx Pneumococcal Vaccination: No Review Of Systems Except As Marked, All Systems Reviewed And Found Negative. Constitutional: Negative for: Fever, Chills Cardiovascular: Negative for: Chest Pain, Palpitations Respiratory: Negative for: Shortness of Breath Gastrointestinal: Negative for: Nausea, Vomiting, Abdominal Pain, Diarrhea Neurological: Negative for: Weakness, Numbness, Headache, Dizziness Physical Exam - Physical Exam Appears: Non-toxic, No Acute Distress Skin: Normal Color, Warm, Dry Head: Atraumatic, Normacephalic Eye(s): bilateral: Normal Inspection Neck: Normal ROM, Supple Cardiovascular: Rhythm Regular, No Murmur Respiratory: Normal Breath Sounds, No Rales, No Rhonchi, No Wheezing Extremity: Bilateral: Atraumatic, Normal ROM Neurological/Psych: Oriented x3, Normal Speech ED Course And Treatment O2 Sat by Pulse Oximetry: 97 (RA) Pulse Ox Interpretation: Normal Medical Decision Making Medical Decision Making: Dr. Jeronimo agrees to take patient back to his service. pt oriented x 2, suspect chronic dementia Disposition - Disposition Disposition: HOSPITALIZED Disposition Time: 05:00 Condition: STABLE - Clinical Impression Clinical Impression: Altered mental status, Dementia - Scribe Statement The provider has reviewed the documentation as recorded by the Scribe Ebony Baxter All medical record entries made by the Scribe were at my direction and personally dictated by me. I have reviewed the chart and agree that the record accurately reflects my personal performance of the history, physical exam, medical decision making, and the department course for this patient. I have also personally directed, reviewed, and agree with the discharge instructions and disposition. Decision To Admit - Pt Status Changed To: Hospital Disposition Of: Inpatient - Admit Certification Admit to Inpatient:: After my assessment, the patient will require hospitalization for at least two midnights. This is because of the severity of symptoms shown, intensity of services needed, and/or the medical risk in this patient being treated as an outpatient. - InPatient: Physician Admission Certification: I certify that this patient requires 2 or more midnights of care for the following reason:: advanced dementia, unsafe at home - . Bed Request Type: Regular Admitting Physician: Freida Jeronimo Patient Diagnosis: Altered mental status, Dementia
--- NOTE | 2016-09-23 21:48 | CP.PCM.HP ---
History of Present Illness - History of Present Illness History of Present Illness: Chief complaint: Patient was found on the floor. History present illness: 70-year-old male with history of diabetes hypertension CAD hypercholesteremia and advanced dementia. Patient was hospitalized recently, and he was in the medical floor, and suddenly he left the hospital AGAINST MEDICAL ADVICE. And this happened today, later today, patient was found wandering in the street. Ambulance was called, and he was found with the Hep-Lock in the hand, immediately patient was taken to the [facility] emergency room. And he needed hospitalization. Patient is still confused, he doesn't know where he is at this time. He denies any other major active symptoms. But he is feeling otherwise okay Past medical history: Diabetes hypertension CAD hypercholesteremia advanced dementia Allergy no known drug allergy Personal history: Used to be a smoker in the past. Currently living with his . I had a multiple discuss with the patient's family also. Patient was sent to rehabilitation multiple times, and he left the hospital and also detention AGAINST MEDICAL ADVICE a few times Review of system: Currently he is feeling okay, he has no headache or visual symptom, he is feeling better and he wanted to leave On examination: Vital signs reviewed No neck vein distention noted Chest good air entry bilaterally, no wheezing or rales noted CVS regular heart sound, no murmur noted Abdomen soft, nontender. Extremities no pedal edema Patient is confused at this time Assessment a condition: 76-year-old male with multiple medical problems hypertension diabetes high cholesterol severe spinal stenosis advanced dementia. Patient needed hospitalization at this time, patient is having significant altered mental status. We'll get a psychiatric evaluation. We'll get a neurological consultation if needed. We'll discuss with the family for possible placement. Present on Admission - Present on Admission Any Indicators Present on Admission: No History of DVT/PE: No History of Uncontrolled Diabetes: No Urinary Catheter: No Decubitus Ulcer Present: No Past Patient History - Infectious Disease Hx of Infectious Diseases: None - Past Medical History & Family History Past Medical History?: Yes - Past Social History Smoking Status: Former Smoker - CARDIAC Hx Hypercholesterolemia: Yes Hx Hypertension: Yes - PULMONARY Hx Asthma: Yes - NEUROLOGICAL Hx Dementia: Yes - HEENT Hx HEENT Problems: Yes (SEE COMMENT) Other/Comment: has eyeglasses for reading but doesn't use. - RENAL Hx Chronic Kidney Disease: No - ENDOCRINE/METABOLIC Hx Diabetes Mellitus Type 2: Yes - HEMATOLOGICAL/ONCOLOGICAL Hx Blood Disorders: No - INTEGUMENTARY Hx Dermatological Problems: No - MUSCULOSKELETAL/RHEUMATOLOGICAL Hx Arthritis: Yes Hx Falls: No - GASTROINTESTINAL Hx Gastritis: Yes - GENITOURINARY/GYNECOLOGICAL Hx Genitourinary Disorders: No - PSYCHIATRIC Hx Anxiety: Yes Hx Substance Use: No - SURGICAL HISTORY Hx Coronary Stent: Yes - ANESTHESIA Hx Anesthesia: Yes Hx Anesthesia Reactions: No Hx Malignant Hyperthermia: No Meds Allergies/Adverse Reactions: Allergies Allergy/AdvReac Type Severity Reaction Status Date / Time morphine Allergy Intermediate SWELLING Verified 09/21/16 14:14 Results - Vital Signs Recent Vital Signs: Last Vital Signs Temp 97.2 F L 09/23/16 19:30 Pulse 79 09/23/16 19:30 Resp 20 09/23/16 19:30 BP 152/83 H 09/23/16 19:30 Pulse Ox 99 09/23/16 19:30 - Labs Labs: Laboratory Results - last 24 hr 09/23/16 20:52 POC Glucose (mg/dL) 213 H
--- NOTE | 2016-09-24 18:33 | CP.PCM.PN ---
Subjective - Date & Time of Evaluation Date of Evaluation: 09/24/16 Time of Evaluation: 18:31 - Subjective Subjective: Patient is currently awake and alert. But he wanted to leave the hospital. Not in any distress. Spoke to the psychiatrist. Patient will be seen by her tomorrow. Labs stable. Vital signs stable. We will get the regular labs in the morning Objective - Vital Signs/Intake and Output Vital Signs (last 24 hours): Temp Pulse Resp BP Pulse Ox 97.4 F L 63 18 136/81 95 09/24/16 17:43 09/24/16 17:43 09/24/16 17:43 09/24/16 17:43 09/24/16 17:43 Intake and Output: 09/24/16 09/24/16 06:59 18:59 Intake Total 440 500 Balance 440 500 - Medications Medications: Current Medications Alprazolam (Xanax) 0.25 mg PO [facility] Stop: 09/30/16 22:01 Last Admin: 09/24/16 00:00 Dose: 0.25 mg Aspirin (Ecotrin) 81 mg PO DAILY [facility] Last Admin: 09/24/16 10:22 Dose: 81 mg Clopidogrel Bisulfate (Plavix) 75 mg PO DAILY [facility] Last Admin: 09/24/16 10:22 Dose: 75 mg Donepezil HCl (Aricept) 10 mg PO [facility] Last Admin: 09/24/16 00:23 Dose: Not Given Gabapentin (Neurontin) 400 mg PO TID [facility] Last Admin: 09/24/16 14:52 Dose: 400 mg Glipizide (Glucotrol) 10 mg PO BID [facility] Last Admin: 09/24/16 17:37 Dose: 10 mg Insulin Glargine (Lantus) 25 unit SC [facility] Losartan Potassium (Cozaar) 50 mg PO DAILY [facility] Last Admin: 09/24/16 10:22 Dose: 50 mg [facility] Last Admin: 09/24/16 17:37 Dose: 1,000 mg Metoprolol Tartrate (Lopressor) 50 mg PO BID [facility] Last Admin: 09/24/16 17:37 Dose: 50 mg Quetiapine Fumarate (Seroquel) 25 mg PO [facility] Last Admin: 09/24/16 00:01 Dose: 25 mg Rosuvastatin Calcium (Crestor) 5 mg PO [facility] Last Admin: 09/24/16 00:02 Dose: 5 mg Sitagliptin Phosphate (Januvia) 50 mg PO DAILY [facility] Last Admin: 09/24/16 10:22 Dose: 50 mg
[2016-09-24] MEDS: (Lantus) Insulin Glargine, Recombinant SC SCH (22:08)
[2016-09-25 08:31] LABS: BASO # 0.1 K/uL (0.0-0.2); EOS # 0.2 K/uL (0.0-0.7); EOS % 3.2 % (0.0-4.0); HEMOGLOBIN 13.8 g/dL (12.0-18.0); LYMPH # 1.6 K/uL (1.0-4.3); LYMPH % 25.7 % (20.0-40.0); MEAN CELL VOLUME 83.5 fL (80.0-94.0); MEAN CORPUSCULAR HEMOGLOBIN 28.4 pg (27.0-31.0); MEAN PLATELET VOLUME 8.3 fL (7.2-11.7); MONO # 0.6 K/uL (0.0-0.8); MONO % 8.9 % (0.0-10.0); NEUT # 3.8 K/uL (1.8-7.0); NEUT % 61.2 % (50.0-75.0); NRBC % 0.2 % (0.0-2.0); RBC 4.85 Mil/uL (4.40-5.90); WHITE BLOOD COUNT 6.2 K/uL (4.8-10.8)
[2016-09-25 08:45] LABS: ALBUMIN 3.3 g/dL (3.5-5.0)
[2016-09-25 08:48] LABS: AST/SGOT 20 U/L (17-59); GFR AFRICAN-AMERICAN > 60; GFR NON-AFRICAN AMERICAN > 60
[2016-09-25 08:49] LABS: ALT/SGPT 16 U/L (21-72); BLOOD UREA NITROGEN 20 mg/dL (9-20)
[2016-09-25 08:50] LABS: CALCIUM 8.6 mg/dl (8.6-10.4)
--- NOTE | 2016-09-25 18:40 | CP.PCM.PN ---
Subjective - Date & Time of Evaluation Date of Evaluation: 09/25/16 Time of Evaluation: 18:39 - Subjective Subjective: Patient is currently sleeping, he is not in any distress. He's eating very well. No chest pain. Denies any nausea. But patient still wanted to leave the hospital. Vital signs stable. On examination: HEENT PERRLA, neck supple No thyromegaly was noted and no cervical adenopathy noted Chest bilateral good air entry, no wheezing or rales noted CVS regular heart sound, no murmur Abdomen soft and no organomegaly Extremities no pedal edema, no leg swelling, pedal pulses are good. Patient is disoriented. Assessment/recommendation: 76 male with history diabetes, hypertension, hypercholesteremia, severe spinal stenosis, bilateral neuropathy in the legs, admitted to the hospital with the altered mental status, delirium. Most likely patient has a worsening dementia. Psychotic evaluation pending. Will continue the current treatment. Will follow the patient glucose control Objective - Vital Signs/Intake and Output Vital Signs (last 24 hours): Temp Pulse Resp BP Pulse Ox 98.8 F 80 20 133/80 96 09/25/16 15:00 09/25/16 15:00 09/25/16 15:00 09/25/16 15:00 09/25/16 15:00 Intake and Output: 09/25/16 09/25/16 06:59 18:59 Intake Total 620 500 Balance 620 500 - Medications Medications: Current Medications Alprazolam (Xanax) 0.[address] [facility] Stop: 09/30/16 22:01 Last Admin: 09/24/16 21:55 Dose: 0.25 mg Aspirin (Ecotrin) 81 mg PO DAILY [facility] Last Admin: 09/25/16 09:54 Dose: 81 mg Clopidogrel Bisulfate (Plavix) 75 mg PO DAILY [facility] Last Admin: 09/25/16 09:54 Dose: 75 mg Donepezil HCl (Aricept) [address] [facility] Last Admin: 09/24/16 21:55 Dose: 10 mg Gabapentin (Neurontin) 400 mg PO TID [facility] Last Admin: 09/25/16 14:26 Dose: 400 mg Glipizide (Glucotrol) 10 mg PO BID [facility] Last Admin: 09/25/16 17:43 Dose: 10 mg Insulin Glargine (Lantus) [address] [facility] Last Admin: 09/24/16 22:08 Dose: 25 units Losartan Potassium (Cozaar) 50 mg PO DAILY [facility] Last Admin: 09/25/16 09:54 Dose: 50 mg [facility] Last Admin: 09/25/16 17:44 Dose: 1,000 mg Metoprolol Tartrate (Lopressor) 50 mg PO BID [facility] Last Admin: 09/25/16 17:50 Dose: 50 mg Quetiapine Fumarate (Seroquel) 25 mg PO HS [facility] Last Admin: 09/24/16 21:55 Dose: 25 mg Rosuvastatin Calcium (Crestor) 5 mg PO HS [facility] Last Admin: 09/24/16 21:55 Dose: 5 mg Sitagliptin Phosphate (Januvia) 50 mg PO DAILY [facility] Last Admin: 09/25/16 09:54 Dose: 50 mg - Labs Labs: 09/25/16 08:24 09/25/16 08:24
--- NOTE | 2016-09-25 20:24 | CP.PCM.CON ---
History of Present Illness - History of Present Illness History of Present Illness: Thank you for consultation Please see Initial Psychiatric Consultation note for assessment and recommendation. Past Patient History - Infectious Disease Hx of Infectious Diseases: None - Past Medical History & Family History Past Medical History?: Yes - Past Social History Smoking Status: Former Smoker - CARDIAC Hx Hypercholesterolemia: Yes Hx Hypertension: Yes - PULMONARY Hx Asthma: Yes - NEUROLOGICAL Hx Dementia: Yes - HEENT Hx HEENT Problems: Yes (SEE COMMENT) Other/Comment: has eyeglasses for reading but doesn't use. - RENAL Hx Chronic Kidney Disease: No - ENDOCRINE/METABOLIC Hx Diabetes Mellitus Type 2: Yes - HEMATOLOGICAL/ONCOLOGICAL Hx Blood Disorders: No - INTEGUMENTARY Hx Dermatological Problems: No - MUSCULOSKELETAL/RHEUMATOLOGICAL Hx Arthritis: Yes - GASTROINTESTINAL Hx Gastritis: Yes - GENITOURINARY/GYNECOLOGICAL Hx Genitourinary Disorders: No - PSYCHIATRIC Hx Anxiety: Yes Hx Substance Use: No - SURGICAL HISTORY Hx Coronary Stent: Yes - ANESTHESIA Hx Anesthesia: Yes Hx Anesthesia Reactions: No Hx Malignant Hyperthermia: No Meds Allergies/Adverse Reactions: Allergies Allergy/AdvReac Type Severity Reaction Status Date / Time morphine Allergy Intermediate SWELLING Verified 09/21/16 14:14 - Medications Medications: Current Medications Alprazolam (Xanax) 0.25 mg PO [facility] Stop: 09/30/16 22:01 Last Admin: 09/24/16 21:55 Dose: 0.25 mg Aspirin (Ecotrin) 81 mg PO DAILY [facility] Last Admin: 09/25/16 09:54 Dose: 81 mg Clopidogrel Bisulfate (Plavix) 75 mg PO DAILY [facility] Last Admin: 09/25/16 09:54 Dose: 75 mg Donepezil HCl (Aricept) 10 mg PO [facility] Last Admin: 09/24/16 21:55 Dose: 10 mg Gabapentin (Neurontin) 400 mg PO TID [facility] Last Admin: 09/25/16 19:54 Dose: 400 mg Glipizide (Glucotrol) 10 mg PO BID [facility] Last Admin: 09/25/16 17:43 Dose: 10 mg Insulin Glargine (Lantus) 25 unit SC [facility] Last Admin: 09/24/16 22:08 Dose: 25 units Losartan Potassium (Cozaar) 50 mg PO DAILY [facility] Last Admin: 09/25/16 09:54 Dose: 50 mg Metformin [facility] ([facility] Last Admin: 09/25/16 17:44 Dose: 1,000 mg Metoprolol Tartrate (Lopressor) 50 mg PO BID [facility] Last Admin: 09/25/16 17:50 Dose: 50 mg Quetiapine Fumarate (Seroquel) 25 mg PO HS [facility] Last Admin: 09/24/16 21:55 Dose: 25 mg Rosuvastatin Calcium (Crestor) 5 mg PO HS [facility] Last Admin: 09/24/16 21:55 Dose: 5 mg Sitagliptin Phosphate (Januvia) 50 mg PO DAILY [facility] Last Admin: 09/25/16 09:54 Dose: 50 mg Results - Vital Signs Recent Vital Signs: Last Vital Signs Temp 98.8 F 09/25/16 15:00 Pulse 80 09/25/16 15:00 Resp 20 09/25/16 15:00 BP 133/80 09/25/16 15:00 Pulse Ox 96 09/25/16 15:00 - Labs Result Diagrams: 09/25/16 08:24 09/25/16 08:24 Labs: Laboratory Results - last 24 hr 09/24/16 09/25/16 09/25/16 21:56 07:55 08:24 WBC 6.2 RBC 4.85 Hgb 13.8 Hct 40.4 MCV 83.5 MCH 28.4 MCHC 34.0 RDW 14.0 Plt Count 244 MPV 8.3 Neut % (Auto) 61.2 Lymph % (Auto) 25.7 [place] % (Auto) 8.9 Eos % (Auto) 3.2 Baso % (Auto) 1.0 Neut # 3.8 Lymph # 1.6 [place] # 0.6 Eos # 0.2 Baso # 0.1 Sodium Potassium Chloride Carbon Dioxide Anion Gap BUN Creatinine Est GFR ( Amer) Est GFR (Non-Af Amer) POC Glucose (mg/dL) 206 H 246 H Random Glucose Calcium Total Bilirubin AST ALT Alkaline Phosphatase Total Protein Albumin Globulin Albumin/Globulin Ratio 09/25/16 09/25/16 09/25/16 08:24 11:24 16:40 WBC RBC Hgb Hct MCV MCH MCHC RDW Plt Count MPV Neut % (Auto) Lymph % (Auto) [place] % (Auto) Eos % (Auto) Baso % (Auto) Neut # Lymph # [place] # Eos # Baso # Sodium 137 Potassium 3.9 Chloride 100 Carbon Dioxide 23 Anion Gap 17 BUN 20 Creatinine 0.8 Est GFR ( Amer) > 60 Est GFR (Non-Af Amer) > 60 POC Glucose (mg/dL) 215 H 187 H Random Glucose 146 H Calcium 8.6 Total Bilirubin 0.6 AST 20 ALT 16 L Alkaline Phosphatase 76 Total Protein 6.7 Albumin 3.3 L Globulin 3.5 Albumin/Globulin Ratio 1.0
--- NOTE | 2016-09-25 20:25 | PCM.PSYCH ---
Initial Psychiatric Evaluation - Initial Psychiatric Evaluation Type of Admission: Voluntary Legal Status: Capacity Chief Complaint (in patient's own words): "I'm Fine" Patient's Reaction to Hospitalization: I don't know why I'm in the hospital History of Present Illness and Precipitating Events: Patient was seen for 40 minutes, Chart reviewed and patient's information was collaborated with nurse and with primary care team. 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 On inquiring about his admission he was unable to tell his reason for admission. His MMSE score was 9/30, which shows that his functioning is markedly impaired and he needs 24 hour supervision and assistance in his ADL's. Patient reported that he is feeling "ok." He denied depressive symptoms including difficulty in concentration, SI, HI, intent or plan, guilt feeling, low level of energy, insomnia, etc. He denied manic, anxiety symptoms. He denied perceptual disturbances. Collateral information was obtained from patient's primary doctor who reported that he was hospitalized recently on the medical floor, and suddenly he left the hospital AMA. He was found wandering in the street. He was brought back to the hospital by ambulance to ER due to having a Hep-Lock in the hand, and he was hospitalized again. He reported to this MD that patient was confused and he does know where he is at that time. The PCP reported that few weeks ago he was missing from his home and then he showed up in his daugher's house in other city. He was also admitted to the jail, but he left without permission. PCP reported that pt has dementia, he is unable to do his ADL's and he needs assistance on daily basis. He reported that pt is living with his . unable to obtain collateral information from the family Current Medications: Active Medications Generic Name Dose Route Start Last Admin Trade Name Freq PRN Reason Stop Dose Admin Alprazolam 0.25 mg 09/23/16 22:00 09/24/16 21:55 Xanax PO 09/30/16 22:01 0.25 mg HS [facility] Administration Aspirin 81 mg 09/24/16 10:00 09/25/16 09:54 Ecotrin PO 81 mg DAILY [facility] Administration Clopidogrel Bisulfate 75 mg 09/24/16 10:00 09/25/16 09:54 Plavix PO 75 mg DAILY [facility] Administration Donepezil HCl 10 mg 09/23/16 22:00 09/24/16 21:55 Aricept PO 10 mg HS [facility] Administration Gabapentin 400 mg 09/24/16 10:00 09/25/16 19:54 Neurontin PO 400 mg TID [facility] Administration Glipizide 10 mg 09/24/16 10:00 09/25/16 17:43 Glucotrol PO 10 mg BID [facility] Administration Insulin Glargine 25 unit 09/23/16 22:00 09/24/16 22:08 Lantus SC 25 units HS [facility] Administration Losartan Potassium 50 mg 09/24/16 10:00 09/25/16 09:54 Cozaar PO 50 mg DAILY [facility] Administration Metformin HCl 1,000 mg 09/24/16 07:30 09/25/16 17:44 Glucophage PO 1,000 mg BIDBS [facility] Administration Metoprolol Tartrate 50 mg 09/24/16 10:00 09/25/16 17:50 Lopressor PO 50 mg BID [facility] Administration Quetiapine Fumarate 25 mg 09/23/16 22:00 09/24/16 21:55 Seroquel PO 25 mg HS [facility] Administration Rosuvastatin Calcium 5 mg 09/23/16 22:00 09/24/16 21:55 Crestor PO 5 mg HS [facility] Administration Sitagliptin Phosphate 50 mg 09/24/16 10:00 09/25/16 09:54 Januvia PO 50 mg DAILY [facility] Administration Past Psychiatric History - Past Psychiatric History Prior Professional Help: Denied Prior Psychiatric Treatment: Denied At what hospital: none reported Duration: n/a History of Abuse: Denied History of ETOH/Drug Use: Denied History of Family Illness: He denied any family history of mental illness Pertinent Medical Hx (Current Medical&Sleep Prob, Allergies): Allergies Allergy/AdvReac Type Severity Reaction Status Date / Time morphine Allergy Intermediate SWELLING Verified 09/21/16 14:14 Donepezil [Aricept] 10 mg PO HS tab 08/22/16 Gabapentin [Neurontin] 400 mg PO TID cap 08/22/16 GlipiZIDE [Glucotrol] 10 mg PO BID tab 08/22/16 Insulin Glargine, Recombina [Lantus] 25 unit SC HS unit 08/22/16 Insulin Human Regular [Novolin R] 0 unit SC [facility]S unit 08/22/16 Losartan [Cozaar] 50 mg PO DAILY tab 08/22/16 Memantine [Namenda] 5 mg PO DAILY tab 08/22/16 Metoprolol Tartrate [Lopressor] 50 mg PO BID tab 08/22/16 Pantoprazole [Protonix Susp] 40 mg PO DAILY packet 08/22/16 QUEtiapine [Seroquel] 25 mg PO HS tab 08/22/16 Rosuvastatin Calcium [Crestor] 5 mg PO HS tab 08/22/16 SITagliptin [Januvia] 50 mg PO DAILY tab 08/22/16 metFORMIN [glucOPHAGE] 1,000 mg PO BIDBS tab 08/22/16 Aspirin [Ecotrin] 81 mg PO DAILY #30 tabec 09/09/16 Clopidogrel [Plavix] 75 mg PO DAILY #30 tab 09/09/16 Promethazine [Phenergan Syrup] 6.25 mg PO Q6H PRN 09/09/16 Dementia, Hypercholesterimia, DM, CAD Review of Systems - Review of Systems All systems: reviewed and no additional remarkable complaints except (please see HPI) Mental Status Examination - Personal Presentation Personal Presentation: Looks stated age Additional comments: He appeared disheveled, lying in bed wearing hospital gown. He is cooperative, redirectable - Affect Affect: Constricted - Motor Activity Motor Activity: Calm - Reliability in Providing Information Reliability in Providing Information: Poor, due to cognitve impairment - Speech Speech: Coherent Additional comments: He answers in small sentences - Formal Thought Process Formal Thought Process: No Impairment - Hallucinations/Delusions Additional comments: Denied A/V/H and he also did not appeared internally preoccupied - Obsessions/Compulsions Obsessions: No Compulsions: No - Cognitive Functions Orientation: Person (AAOxo HE only knows he is in the hospital.) Attention/Concentration: Attentive Estimate of Intelligence: Below average Judgement: Imparied, as evidence by: Other (due to cognitive impairment) Memory: Recent impaired, as evidence by: Inability to recall events of the day, Recent imparied as evidence by:Inability to complete 3/3 object recall - Risk Additional comments: He is at high risk of wandering due to his cognitive impairment - Strength & Assets Inventory Strength & Assets Inventory: Family support - Limitations Limitations: Decreased memory, recent DSM 5 DX - Recommended/Plan of Treatment Treatment Recommendations and Plan of Treatment: This is a 70-year-old male with history of diabetes hypertension CAD hypercholesteremia and advanced dementia. At this time he has no capacity to make his own deciscion. we have following recommendation for primary care 1. Avoid all benzo and Anticholinergic medication as it can worsen cognition. 2. Re-orient the patient about time, place, person and reason for hospitalization. 3. Recommend one nursing health aid to help in his ADL's. 4. Recommend to advise family visitation more often. 5. Recommend to appoint a guardian/health care proxy, who can make his decision. 6. Consult neurology for adding Nemanda for Alzheimer. 7. call psych c/l prn. Prognosis: guarded Discharge Plan and Discharge Criteria: As per primary team - Smoking Cessation Smoking Cessation Initiated: No Reason for not providing: n/a
[2016-09-25] MEDS: (Lantus) Insulin Glargine, Recombinant SC SCH (22:23)
[2016-09-26] MEDS ORDERED: Eptifibatide 20 mg/10mL Inj IVP ONE (07:13)
[2016-09-26 08:49] VITALS: RESP 20
[2016-09-26] MEDS: (Lantus) Insulin Glargine, Recombinant SC SCH (21:55)
--- NOTE | 2016-09-27 19:21 | CP.PCM.PN ---
Subjective - Date & Time of Evaluation Date of Evaluation: 09/27/16 Time of Evaluation: 19:20 - Subjective Subjective: And is somewhat confused, no active symptoms otherwise, eating well, following commands Vital signs stable. Vital signs reviewed No neck vein distention noted Chest good air entry bilaterally, no wheezing or rales noted CVS regular heart sound, no murmur noted Abdomen soft, nontender. Extremities no pedal edema Patient is disoriented otherwise Assessment and recommendation: 76-year-old male with history of diabetes hypertension and spinal stenosis noncompliance. Dementia. Delirium. We'll continue the current treatment. Patient will need possibly intermediate placement. 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 We will follow the patient Objective - Vital Signs/Intake and Output Vital Signs (last 24 hours): Temp Pulse Resp BP Pulse Ox 98.1 F 77 20 128/82 96 09/27/16 15:59 09/27/16 15:59 09/27/16 15:59 09/27/16 15:59 09/27/16 15:59 Intake and Output: 09/27/16 09/28/16 18:59 06:59 Intake Total 240 Output Total 400 Balance -160 - Medications Medications: Current Medications Alprazolam (Xanax) 0.25 mg PO [facility] Stop: 09/30/16 22:01 Last Admin: 09/26/16 21:16 Dose: 0.25 mg Aspirin (Ecotrin) 81 mg PO DAILY [facility] Last Admin: 09/27/16 09:59 Dose: 81 mg Clopidogrel Bisulfate (Plavix) 75 mg PO DAILY [facility] Last Admin: 09/27/16 09:59 Dose: 75 mg Donepezil HCl (Aricept) 10 mg PO [facility] Last Admin: 09/26/16 21:15 Dose: 10 mg Gabapentin (Neurontin) 400 mg PO TID [facility] Last Admin: 09/27/16 17:40 Dose: 400 mg Glipizide (Glucotrol) 10 mg PO BID [facility] Last Admin: 09/27/16 17:42 Dose: 10 mg Insulin Glargine (Lantus) 25 unit SC [facility] Last Admin: 09/26/16 21:55 Dose: 25 units Losartan Potassium (Cozaar) 50 mg PO DAILY [facility] Last Admin: 09/27/16 09:59 Dose: 50 mg [facility] Admin: 09/27/16 17:41 Dose: 1,000 mg Metoprolol Tartrate (Lopressor) 50 mg PO BID [facility] Last Admin: 09/27/16 17:42 Dose: 50 mg Quetiapine Fumarate (Seroquel) 25 mg PO HS [facility] Last Admin: 09/26/16 21:04 Dose: 25 mg Rosuvastatin Calcium (Crestor) 5 mg PO HS [facility] Last Admin: 09/26/16 21:15 Dose: 5 mg Sitagliptin Phosphate (Januvia) 50 mg PO DAILY [facility] Last Admin: 09/27/16 09:59 Dose: 50 mg - Labs Labs: 09/25/16 08:24 09/25/16 08:24
[2016-09-27] MEDS: (Lantus) Insulin Glargine, Recombinant SC SCH ×2 (22:01→22:02)
[2016-09-28 07:16] LABS: BASO # 0.1 K/uL (0.0-0.2); BASO % 0.7 % (0.0-2.0); EOS # 0.3 K/uL (0.0-0.7); EOS % 3.4 % (0.0-4.0); HEMOGLOBIN 13.4 g/dL (12.0-18.0); LYMPH # 1.5 K/uL (1.0-4.3); LYMPH % 18.6 % (20.0-40.0); MEAN CELL VOLUME 83.9 fL (80.0-94.0); MEAN CORPUSCULAR HEMOGLOBIN 28.4 pg (27.0-31.0); MEAN CORPUSCULAR HGB CONC 33.9 g/dL (33.0-37.0); MEAN PLATELET VOLUME 8.6 fL (7.2-11.7); MONO # 0.8 K/uL (0.0-0.8); MONO % 9.7 % (0.0-10.0); NEUT # 5.4 K/uL (1.8-7.0); NEUT % 67.6 % (50.0-75.0); NRBC % 0.1 % (0.0-2.0); RBC 4.72 Mil/uL (4.40-5.90); RED CELL DISTRIBUTION WIDTH 13.6 % (11.5-14.5)
[2016-09-28 07:52] LABS: ALBUMIN 3.3 g/dL (3.5-5.0)
[2016-09-28 07:54] LABS: GFR AFRICAN-AMERICAN > 60; GFR NON-AFRICAN AMERICAN > 60
[2016-09-28 07:55] LABS: ALB/GLOB RATIO 1.1 (1.0-2.1); ALT/SGPT 19 U/L (21-72); AST/SGOT 12 U/L (17-59); BLOOD UREA NITROGEN 17 mg/dL (9-20)
[2016-09-28 07:56] LABS: CALCIUM 8.4 mg/dl (8.6-10.4)
[2016-09-28 08:49] VITALS: O2SAT 95
--- NOTE | 2016-09-28 14:51 | CP.PCM.PN ---
Subjective - Date & Time of Evaluation Date of Evaluation: 09/28/16 Time of Evaluation: 14:45 - Subjective Subjective: PT REMAINS STABLE AND ON SAFETY WATCH FOR ELOPEMENT. PER NEWSPAPER OR PERIODICAL EDITOR VERNON AND NELLY HERNANDEZ, PT HAS BEEN ACCEPTED TO [facility] (IN [place], [place]), [facility] WITH REHABILITATION. PT TO BE PLACED UNDER THE HOSPITALIST/HOUSE MD SERVICE AND THE FACILITY IS TO CONTACT DR. CEJA FOR ANY ISSUES OR QUESTIONS. NELLY HERNANDEZ STATES SHE HAS DISCUSSED THE D/C PLAN AT LENGTH WITH THE FAMILY (PARTICULARLY THE DAUGHTER) AND [facility] IS THE FACILITY THEY HAVE CHOSEN IT IS CLOSE TO THE PT'S SON'S HOUSE. SW TO ARRANGE TRANSPORTATION TO FACILITY. DR. CEJA AWARE AND IN AGREEMENT WITH PLAN. NO FURTHER ORDERS. Objective - Vital Signs/Intake and Output Vital Signs (last 24 hours): Temp Pulse Resp BP Pulse Ox 98.5 F 78 20 105/65 95 09/28/16 08:47 09/28/16 08:47 09/28/16 08:47 09/28/16 08:47 09/28/16 08:47 Intake and Output: 09/28/16 09/28/16 06:59 18:59 Intake Total 180 Balance 180 - Medications Medications: Current Medications Alprazolam (Xanax) 0.25 mg PO [facility] Stop: 09/30/16 22:01 Last Admin: 09/27/16 21:27 Dose: 0.25 mg Aspirin (Ecotrin) 81 mg PO DAILY [facility] Last Admin: 09/28/16 09:36 Dose: 81 mg Clopidogrel Bisulfate (Plavix) 75 mg PO DAILY [facility] Last Admin: 09/28/16 09:36 Dose: 75 mg Donepezil HCl (Aricept) 10 mg PO [facility] Last Admin: 09/27/16 21:27 Dose: 10 mg Gabapentin (Neurontin) 400 mg PO TID [facility] Last Admin: 09/28/16 13:32 Dose: 400 mg Glipizide (Glucotrol) 10 mg PO BID [facility] Last Admin: 09/28/16 09:36 Dose: 10 mg Insulin Glargine (Lantus) 25 unit SC HS [facility] Last Admin: 09/27/16 22:02 Dose: 25 units Losartan Potassium (Cozaar) 50 mg PO DAILY [facility] Last Admin: 09/28/16 09:38 Dose: 50 mg Metformin HCl (Glucophage) 1,000 mg PO BIDBS [facility] Last Admin: 09/28/16 08:16 Dose: 1,000 mg Metoprolol Tartrate (Lopressor) 50 mg PO BID [facility] Last Admin: 09/28/16 09:38 Dose: 50 mg Quetiapine Fumarate (Seroquel) 25 mg PO [facility] Last Admin: 09/27/16 21:28 Dose: 25 mg Rosuvastatin Calcium (Crestor) 5 mg PO [facility] Last Admin: 09/27/16 21:27 Dose: 5 mg Sitagliptin Phosphate (Januvia) 50 mg PO DAILY [facility] Last Admin: 09/28/16 09:36 Dose: 50 mg - Labs Labs: 09/28/16 06:59 09/28/16 06:59
[2016-09-28 16:20] VITALS: BP 121/77; PULSE 70; TEMP 98.3
--- NOTE | 2016-09-28 20:04 | CP.PCM.PN ---
Subjective - Date & Time of Evaluation Date of Evaluation: 09/26/16 Time of Evaluation: 20:04 - Subjective Subjective: Condition condition clinic is stable. He is comfortable, he is following commands, taking the medications regularly, eating well. No other active symptoms. We'll continue the current treatment Objective - Vital Signs/Intake and Output Vital Signs (last 24 hours): Temp Pulse Resp BP Pulse Ox 98.3 F 70 20 121/77 95 09/28/16 15:00 09/28/16 15:00 09/28/16 15:00 09/28/16 15:00 09/28/16 15:00 Intake and Output: 09/28/16 09/29/16 18:59 06:59 Intake Total 450 Balance 450 - Medications Medications: Current Medications Alprazolam (Xanax) 0.25 mg PO [facility] Stop: 09/30/16 22:01 Last Admin: 09/27/16 21:27 Dose: 0.25 mg Aspirin (Ecotrin) 81 mg PO DAILY [facility] Last Admin: 09/28/16 09:36 Dose: 81 mg Clopidogrel Bisulfate (Plavix) 75 mg PO DAILY [facility] Last Admin: 09/28/16 09:36 Dose: 75 mg Donepezil HCl (Aricept) 10 mg PO [facility] Last Admin: 09/27/16 21:27 Dose: 10 mg Gabapentin (Neurontin) 400 mg PO TID [facility] Last Admin: 09/28/16 17:26 Dose: 400 mg Glipizide (Glucotrol) 10 mg PO BID [facility] Last Admin: 09/28/16 17:25 Dose: 10 mg Insulin Glargine (Lantus) 25 unit SC [facility] Last Admin: 09/27/16 22:02 Dose: 25 units Losartan Potassium (Cozaar) 50 mg PO DAILY [facility] Last Admin: 09/28/16 09:38 Dose: 50 mg [facility] Last Admin: 09/28/16 17:10 Dose: 1,000 mg Metoprolol Tartrate (Lopressor) 50 mg PO BID [facility] Last Admin: 09/28/16 17:29 Dose: 50 mg Quetiapine Fumarate (Seroquel) 25 mg PO [facility] Last Admin: 09/27/16 21:28 Dose: 25 mg Rosuvastatin Calcium (Crestor) 5 mg PO [facility] Last Admin: 09/27/16 21:27 Dose: 5 mg Sitagliptin Phosphate (Januvia) 50 mg PO DAILY [facility] Last Admin: 09/28/16 09:36 Dose: 50 mg - Labs Labs: 09/28/16 06:59 09/28/16 06:59
--- NOTE | 2016-09-28 20:08 | CP.PCM.DIS ---
Provider - Provider Date of Admission: 09/23/16 17:24 Attending physician: Freida Jeronimo MD Time Spent in preparation of Discharge (in minutes): 45 Hospital Course - Lab Results Lab Results: Most Recent Lab Values WBC 8.0 K/uL (4.8-10.8) 09/28/16 06:59 RBC 4.72 Mil/uL (4.40-5.90) 09/28/16 06:59 Hgb 13.4 g/dL (12.0-18.0) 09/28/16 06:59 Hct 39.6 % (35.0-51.0) 09/28/16 06:59 MCV 83.9 fL (80.0-94.0) 09/28/16 06:59 MCH 28.4 pg (27.0-31.0) 09/28/16 06:59 MCHC 33.9 g/dL (33.0-37.0) 09/28/16 06:59 RDW 13.6 % (11.5-14.5) 09/28/16 06:59 Plt Count 206 K/uL (130-400) 09/28/16 06:59 MPV 8.6 fL (7.2-11.7) 09/28/16 06:59 Neut % (Auto) 67.6 % (50.0-75.0) 09/28/16 06:59 Lymph % (Auto) 18.6 % (20.0-40.0) L 09/28/16 06:59 Arthur % (Auto) 9.7 % (0.0-10.0) 09/28/16 06:59 Eos % (Auto) 3.4 % (0.0-4.0) 09/28/16 06:59 Baso % (Auto) 0.7 % (0.0-2.0) 09/28/16 06:59 Neut # 5.4 K/uL (1.8-7.0) 09/28/16 06:59 Lymph # 1.5 K/uL (1.0-4.3) 09/28/16 06:59 Arthur # 0.8 K/uL (0.0-0.8) 09/28/16 06:59 Eos # 0.3 K/uL (0.0-0.7) 09/28/16 06:59 Baso # 0.1 K/uL (0.0-0.2) 09/28/16 06:59 Sodium 136 mmol/L (132-148) 09/28/16 06:59 Potassium 3.9 mmol/L (3.6-5.2) 09/28/16 06:59 Chloride 99 mmol/L (98-107) 09/28/16 06:59 Carbon Dioxide 22 mmol/L (22-30) 09/28/16 06:59 Anion Gap 19 (10-20) 09/28/16 06:59 BUN 17 mg/dL (9-20) 09/28/16 06:59 Creatinine 0.7 MG/DL (0.8-1.5) L 09/28/16 06:59 Est GFR ( Amer) > 60 09/28/16 06:59 Est GFR (Non-Af Amer) > 60 09/28/16 06:59 POC Glucose (mg/dL) 218 mg/dL (65-110) H 09/28/16 16:10 Random Glucose 141 mg/dL (75-110) H 09/28/16 06:59 Calcium 8.4 mg/dl (8.6-10.4) L 09/28/16 06:59 Total Bilirubin 0.5 mg/dL (0.2-1.3) 09/28/16 06:59 AST 12 U/L (17-59) L D 09/28/16 06:59 ALT 19 U/L (21-72) L 09/28/16 06:59 Alkaline Phosphatase 77 U/L (38-126) 09/28/16 06:59 Total Protein 6.5 g/dL (6.3-8.3) 09/28/16 06:59 Albumin 3.3 g/dL (3.5-5.0) L 09/28/16 06:59 Globulin 3.2 gm/dL (2.2-3.9) 09/28/16 06:59 Albumin/Globulin Ratio 1.1 (1.0-2.1) 09/28/16 06:59 - Hospital Course Hospital Course: History of present illness: 70-year-old male with history of diabetes hypertension CAD hypercholesteremia and advanced dementia. Patient was hospitalized recently, and he was in the medical floor, and suddenly he left the hospital AGAINST MEDICAL ADVICE. on the day of admission patient was found wandering in the street. Ambulance was called, and he was found with the Hep-Lock in the hand, immediately patient was taken to the [facility] emergency room. And he needed hospitalization. Patient is still confused, he doesn't know where he is at this time. He denies any other major active symptoms. But he is feeling otherwise okay Past medical history: Diabetes hypertension CAD hypercholesteremia advanced dementia Allergy no known drug allergy Personal history: Used to be a smoker in the past. Currently living with his . I had a multiple discuss with the patient's family also. Patient was sent to rehabilitation multiple times, and he left the hospital and also alf AGAINST MEDICAL ADVICE a few times Review of system: Currently he is feeling okay, he has no headache or visual symptom, he is feeling better and he wanted to leave On examination: Vital signs reviewed No neck vein distention noted Chest good air entry bilaterally, no wheezing or rales noted CVS regular heart sound, no murmur noted Abdomen soft, nontender. Extremities no pedal edema Patient is confused at this time Assessment a condition: 76-year-old male with multiple medical problems hypertension diabetes high cholesterol severe spinal stenosis advanced dementia. Patient needed hospitalization at this time, patient is having significant altered mental status. We'll get a psychiatric evaluation. We'll get a neurological consultation if needed. We'll discuss with the family for possible placement. During the stay in the hospital patient was closely monitored, one-to-one observation. Psychiatric evaluation was called, patient was having increasing episodes of dementia and delirium. Currently controlled with medications. Patient is unsafe for discharge, finally spoke to the patient family, and agreed to have alf placement. Patient will be discharged to alf. Family is close to the alf, and they will be following him in the alf. Medications reviewed and will be administered in the alf. Glucose control. Patient will follow-up by the doctors at the alf PT REMAINS STABLE AND ON SAFETY WATCH FOR ELOPEMENT. PER PACKAGE WRAPPER VERNON AND NELLY HERNANDEZ, PT HAS BEEN ACCEPTED TO [facility] (IN [place], [place]), A LOCKED DEMENTIA UNIT WITH REHABILITATION. PT TO BE PLACED UNDER THE HOSPITALIST/HOUSE MD SERVICE AND THE FACILITY IS TO CONTACT DR. JERONIMO FOR ANY ISSUES OR QUESTIONS. NELLY HERNANDEZ STATES SHE HAS DISCUSSED THE D/C PLAN AT LENGTH WITH THE FAMILY (PARTICULARLY THE DAUGHTER) AND [facility] IS THE FACILITY THEY HAVE CHOSEN IT IS CLOSE TO THE PT'S SON'S HOUSE. SW TO ARRANGE TRANSPORTATION TO FACILITY. DR. JERONIMO AWARE AND IN AGREEMENT WITH PLAN. NO FURTHER ORDERS Discharge Plan - Follow Up Plan Condition: STABLE Disposition: HOME/ ROUTINE Instructions: Altered Mental Status (GEN) Additional Instructions: PLACE UNDER THE SERVICE OF THE HOSPITALIST. CALL DR. JERONIMO (PMD) FOR CONCERNS OR QUESTIONS REGARDING PATIENT'S HISTORY OR STATUS. CONTINUE MEDICATIONS PER THE MED REC FORM. CHANGES PER ATTENDING. Referrals: Melinda Kwon [Staff Provider] - Freida Jeronimo MD [Staff Provider] -
[2016-09-28] MEDS: (Lantus) Insulin Glargine, Recombinant SC SCH (21:30)
--- NOTE | 2016-09-29 11:19 | CARD ---
APPROVED REPORT EKG Measurement Heart [id number] <Conclusion> Normal sinus rhythm Possible Anterior infarct, age undetermined Abnormal ECG
== END 2016-09-28 21:00 | DRG 884 ==
LOC: C.ER 16:22 → C.9E 17:24 → C.3T 18:58
PROVIDERS: ADMIT Internal Medicine; ATTEND Internal Medicine
DX: F03.90 Unspecified dementia, unspecified severity, without behavioral disturbance, psychotic disturbance, mood disturbance, and anxiety (principal); F05 Delirium due to known physiological condition; E11.40 Type 2 diabetes mellitus with diabetic neuropathy, unspecified; E78.00 Pure hypercholesterolemia, unspecified; E78.5 Hyperlipidemia, unspecified; I10 Essential (primary) hypertension; I25.10 Atherosclerotic heart disease of native coronary artery without angina pectoris; J45.909 Unspecified asthma, uncomplicated; M19.90 Unspecified osteoarthritis, unspecified site; M48.00 Spinal stenosis, site unspecified; Z87.891 Personal history of nicotine dependence; Z91.19 Patient's noncompliance with other medical treatment and regimen; Z91.83 Wandering in diseases classified elsewhere; Z95.5 Presence of coronary angioplasty implant and graft

== ENCOUNTER 2016-10-11 13:35 | Observation (INO) | payer MEDICARE, MEDICAID ==
[2016-10-11 13:35] VITALS: PULSE 113; BMI 26.6
[2016-10-11 14:26] LABS: BASO # 0.1 K/uL (0.0-0.2); BASO % 1.1 % (0.0-2.0); EOS # 0.1 K/uL (0.0-0.7); EOS % 2.1 % (0.0-4.0); HEMATOCRIT 38.2 % (35.0-51.0); LYMPH # 1.1 K/uL (1.0-4.3); LYMPH % 21.7 % (20.0-40.0); MEAN CELL VOLUME 83.2 fL (80.0-94.0); MEAN CORPUSCULAR HEMOGLOBIN 28.6 pg (27.0-31.0); MEAN CORPUSCULAR HGB CONC 34.4 g/dL (33.0-37.0); MEAN PLATELET VOLUME 7.8 fL (7.2-11.7); MONO # 0.4 K/uL (0.0-0.8); MONO % 7.9 % (0.0-10.0); NRBC % 0.1 % (0.0-2.0); WHITE BLOOD COUNT 5.2 K/uL (4.8-10.8)
--- NOTE | 2016-10-11 14:36 | C.PDOC ---
History Of Present Illness 76 y/o male presents to the ED for evaluation of intermittent non-radiating chest pain (pressure) since this morning. He has not taken his usual medications, including Aspirin. Patient denies shortness of breath, headache, fever/chills cough, nausea, vomiting, diarrhea, back pain, or lower extremity pain/swelling. Time Seen by Provider: 10/11/16 13:48 Chief Complaint (Nursing): Chest Pain History Per: Patient History/Exam Limitations: no limitations Onset/Duration Of Symptoms: Hrs Current Symptoms Are (Timing): Still Present Severity: Mild Quality: Pressure, "Pain" Associated Symptoms: denies: Nausea, Dyspnea, Diaphoresis, Syncope Modifying Factors: None Exacerbating Factors: None Alleviating Factors: None Additional History Per: Patient Past Medical History Reviewed: Historical Data, Nursing Documentation, Vital Signs Vital Signs: Last Vital Signs Temp 97.4 F L 10/13/16 08:00 Pulse 58 L 10/13/16 08:00 Resp 20 10/13/16 08:00 BP 157/81 H 10/13/16 08:00 Pulse Ox 97 10/13/16 08:00 - Medical History PMH: Anxiety, Arthritis, Asthma, Back Problems (Chronic Pain), Dementia, Diabetes, Gastritis, HTN, Hypercholesterolemia, Hyperlipidemia Surgical History: Coronary Stent - [facility] Procedures CORONAR ARTERIOGR-2 CATH (12/02/13) LEFT HEART CARDIAC CATH (12/02/13) LT HEART ANGIOCARDIOGRAM (12/02/13) Family History: States: No Known Family Hx - Social History Hx Tobacco Use: Yes Hx Alcohol Use: No Hx Substance Use: No - Immunization History Hx Tetanus Toxoid Vaccination: No Hx Influenza Vaccination: No Hx Pneumococcal Vaccination: No Review Of Systems Except As Marked, All Systems Reviewed And Found Negative. Constitutional: Negative for: Fever, Chills Cardiovascular: Positive for: Chest Pain. Negative for: Palpitations, Light Headedness Respiratory: Negative for: Cough, Shortness of Breath, Sputum, Wheezing Gastrointestinal: Negative for: Nausea, Vomiting, Abdominal Pain Skin: Negative for: Rash, Bruising Neurological: Negative for: Dizziness Physical Exam - Physical Exam Appears: Well, Non-toxic, No Acute Distress, Other (anxious) Skin: Normal Color, Warm, Dry, No Rash Eye(s): bilateral: Normal Inspection Oral Mucosa: Moist Cardiovascular: Rhythm Regular Respiratory: Normal Breath Sounds, No Rales, No Rhonchi, No Wheezing Gastrointestinal/Abdominal: Normal Exam, Bowel Sounds, Soft, No Tenderness Extremity: Normal ROM, No Pedal Edema, No Calf Tenderness, No Deformity Pulses: Left Dorsalis Pedis: Normal, Right Dorsalis Pedis: Normal Neurological/Psych: Oriented x3 ED Course And Treatment - Laboratory Results Result Diagrams: 10/12/16 08:01 10/12/16 08:01 ECG: Interpreted By Me, Viewed By Me ECG Rhythm: Sinus Rhythm ECG Interpretation: No Changes From Prior (09/23/16) Interpretation Of ECG: Left axis deviation. No acute ST wave changes. Rate From EC (bpm) O2 Sat by Pulse Oximetry: 99 (RA) Pulse Ox Interpretation: Normal - Radiology CXR: Interpreted by Me, Viewed By Me CXR Interpretation: Yes: No Acute Disease. No: Infiltrates Progress Note: Blood work, EKG, CXR, urinalysis ordered and reviewed. Patient given PO Aspirin. - Physician Consult Information Physician Contacted: Freida Jeronimo Outcome Of Conversation: Discussed patient with PMD, he would like patient to be obs telemetry for chest pain, r/o ACS. Disposition - Disposition Disposition: HOSPITALIZED Disposition Time: 15:58 Condition: STABLE - Clinical Impression Clinical Impression: Chest pain - Scribe Statement The provider has reviewed the documentation as recorded by the Scribe Ebony Baxter All medical record entries made by the Scribe were at my direction and personally dictated by me. I have reviewed the chart and agree that the record accurately reflects my personal performance of the history, physical exam, medical decision making, and the department course for this patient. I have also personally directed, reviewed, and agree with the discharge instructions and disposition. Decision To Admit - Pt Status Changed To: Hospital Disposition Of: Observation - . Bed Request Type: Telemetry Admitting Physician: Freida Jeronimo Patient Diagnosis: Chest pain
[2016-10-11 14:39] LABS: CHLORIDE 99 mmol/L (98-107)
[2016-10-11 14:40] LABS: POTASSIUM 3.9 mmol/L (3.6-5.2); SODIUM 138 mmol/L (132-148)
[2016-10-11 14:42] LABS: ALB/GLOB RATIO 1.1 (1.0-2.1); ALKALINE PHOSPHATASE 80 U/L (38-126); ALT/SGPT 24 U/L (21-72); AST/SGOT 15 U/L (17-59); BILIRUBIN,TOTAL 0.5 mg/dL (0.2-1.3); BLOOD UREA NITROGEN 13 mg/dL (9-20); CARBON DIOXIDE 27 mmol/L (22-30); GFR AFRICAN-AMERICAN > 60; GLUCOSE,RANDOM 207 mg/dL (75-110); TOTAL PROTEIN 6.9 g/dL (6.3-8.3)
[2016-10-11 14:43] LABS: CALCIUM 8.9 mg/dl (8.6-10.4)
--- NOTE | 2016-10-11 14:51 | RAD ---
PROCEDURE: CHEST RADIOGRAPH, 1 VIEW HISTORY: CP COMPARISON: 09/21/2016 FINDINGS: LUNGS: No interval infiltrate or atelectasis suggested. The thread-like atelectasis and/or trace scarring -right lateral lung base is stable. The punctate 1 mm and sub mm metallic densities projecting over the right upper lung zone are unchanged -prior reports reference their stability dating back to September 2014. Consistent with prior trauma PLEURA: No pneumothorax or pleural fluid seen. CARDIOVASCULAR: Left ventricular heart size probably top-normal. No [place] pulmonary venous congestion OSSEOUS STRUCTURES: No significant abnormalities. VISUALIZED UPPER ABDOMEN: Normal. OTHER FINDINGS: None. IMPRESSION: No interval pathology noted
[2016-10-11 16:55] LABS: RBC URINE 2 /hpf (0-3); URINE BILIRUBIN NEGATIVE (NEGATIVE); URINE BLOOD NEGATIVE (NEGATIVE); URINE COLOR Yellow (YELLOW); URINE GLUCOSE (UA) 3+ mg/dL (Normal); URINE KETONE NEGATIVE (NEGATIVE); URINE LEUKOCYTE ESTERASE NEG Leu/uL (Negative); URINE PROTEIN NEGATIVE (NEGATIVE); URINE UROBILINOGEN NORMAL mg/dL (0.2-1.0); WBC URINE < 1 /hpf (0-5)
[2016-10-11] MEDS ORDERED: Azithromycin 500 MG in Sodium Chloride 0.9% 250 ML IVPB SCH (18:00)
[2016-10-11] MEDS: MethylPREDNISolone 40 mg Vial IVP SCH (18:53)
[2016-10-11] MEDS ORDERED: Albuterol-Ipratrop 3 mg / 0.5 (3 ml) UD INH SCH (20:00)
--- NOTE | 2016-10-11 21:18 | CP.PCM.HP ---
History of Present Illness - History of Present Illness History of Present Illness: Chief complaint: Patient came to the emergency room with chest pain. History present illness: 70-year-old male with history of diabetes hypertension CAD hypercholesteremia and advanced dementia. Patient is morning came to the office, at that time he was having increasing chest discomfort, and he left my office and came to the ER. In the emergency room patient was complaining of mid sternal chest pain, radiating to the left side of the shoulder, associated with numbness in the left hand. He was also having some increasing weakness. Some dizziness noted, sweating present. Needed further management. Past medical history: Diabetes hypertension CAD hypercholesteremia advanced dementia Allergy no known drug allergy Personal history: Used to be a smoker in the past. Currently living with his . I had a multiple discuss with the patient's family also. Patient was sent to rehabilitation multiple times, and he left the hospital and also jail AGAINST MEDICAL ADVICE a few times Review of system: Currently he is feeling okay, he has no headache or visual symptom, he is feeling better and he wanted to leave On examination: Temp Pulse Resp BP Pulse Ox 98.4 F 67 16 146/68 97 10/11/16 20:21 10/11/16 20:21 10/11/16 20:21 10/11/16 20:21 10/11/16 20:21 Vital signs reviewed No neck vein distention noted Chest good air entry bilaterally, no wheezing or rales noted CVS regular heart sound, no murmur noted Abdomen soft, nontender. Extremities no pedal edema Patient is confused at this time Patient's labs reviewed Nonspecific. Cardiac enzymes are negative so far, EKG nonspecific Assessment/recommendation: 76-year-old male with multiple medical problems hypertension diabetes high cholesterol severe spinal stenosis advanced dementia. Patient has advanced dementia. Currently admitted with the chest pain nonspecific. Radiating to the left shoulder. Unlikely cardiac in origin. We'll closely monitor. If the enzymes are negative tomorrow, possible discharge planning the morning. His medications reviewed Reconsilation done. We'll follow the patient Present on Admission - Present on Admission Any Indicators Present on Admission: No History of DVT/PE: No History of Uncontrolled Diabetes: No Urinary Catheter: No Decubitus Ulcer Present: No Past Patient History - Infectious Disease Hx of Infectious Diseases: None - Past Medical History & Family History Past Medical History?: Yes - Past Social History Smoking Status: Former Smoker - CARDIAC Hx Hypercholesterolemia: Yes Hx Hypertension: Yes - PULMONARY Hx Asthma: Yes - NEUROLOGICAL Hx Dementia: Yes - HEENT Hx HEENT Problems: Yes (SEE COMMENT) Other/Comment: has eyeglasses for reading but doesn't use. - RENAL Hx Chronic Kidney Disease: No - ENDOCRINE/METABOLIC Hx Diabetes Mellitus Type 2: Yes - HEMATOLOGICAL/ONCOLOGICAL Hx Blood Disorders: No - INTEGUMENTARY Hx Dermatological Problems: No - MUSCULOSKELETAL/RHEUMATOLOGICAL Hx Arthritis: Yes - GASTROINTESTINAL Hx Gastritis: Yes - GENITOURINARY/GYNECOLOGICAL Hx Genitourinary Disorders: No - PSYCHIATRIC Hx Anxiety: Yes Hx Substance Use: No - SURGICAL HISTORY Hx Coronary Stent: Yes - ANESTHESIA Hx Anesthesia: Yes Hx Anesthesia Reactions: No Hx Malignant Hyperthermia: No Meds Allergies/Adverse Reactions: Allergies Allergy/AdvReac Type Severity Reaction Status Date / Time morphine Allergy Intermediate SWELLING Verified 09/21/16 14:14 Results - Vital Signs Recent Vital Signs: Last Vital Signs Temp 98.4 F 10/11/16 20:21 Pulse 67 10/11/16 20:21 Resp 16 10/11/16 20:21 BP 146/68 10/11/16 20:21 Pulse Ox 97 10/11/16 20:21 - Labs Result Diagrams: 10/11/16 14:21 10/11/16 14:21 Labs: Laboratory Results - last 24 hr 10/11/16 16:50 Urine Color Yellow Urine Clarity Clear Urine pH 6.0 Ur Specific [place] 1.018 Urine Protein Negative Urine Glucose (UA) 3+ H Urine Ketones Negative Urine Blood Negative Urine Nitrate Negative Urine Bilirubin Negative Urine Urobilinogen Normal Ur Leukocyte Esterase Neg Urine WBC (Auto) < 1 Urine RBC (Auto) 2 Ur Squamous Epith Cells < 1
[2016-10-11 22:03] VITALS: RESP 20
[2016-10-11] MEDS: (Lantus) Insulin Glargine, Recombinant SC SCH (22:31)
[2016-10-11] MEDS: (Novolin R) Insulin Human Regular 100 units/ml vial SC SCH (22:32)
[2016-10-12 08:14] LABS: HEMATOCRIT 38.8 % (35.0-51.0); MEAN CELL VOLUME 83.1 fL (80.0-94.0); MEAN CORPUSCULAR HEMOGLOBIN 28.6 pg (27.0-31.0); MEAN CORPUSCULAR HGB CONC 34.4 g/dL (33.0-37.0); MEAN PLATELET VOLUME 8.3 fL (7.2-11.7); RED CELL DISTRIBUTION WIDTH 14.3 % (11.5-14.5)
[2016-10-12 08:37] LABS: CHLORIDE 101 mmol/L (98-107)
[2016-10-12 08:38] LABS: POTASSIUM 3.6 mmol/L (3.6-5.2); SODIUM 139 mmol/L (132-148)
[2016-10-12 08:40] LABS: ALKALINE PHOSPHATASE 74 U/L (38-126); AST/SGOT 16 U/L (17-59); BILIRUBIN,TOTAL 0.5 mg/dL (0.2-1.3); BLOOD UREA NITROGEN 13 mg/dL (9-20); CARBON DIOXIDE 27 mmol/L (22-30); GFR AFRICAN-AMERICAN > 60; TOTAL PROTEIN 6.7 g/dL (6.3-8.3)
[2016-10-12 08:41] LABS: ALT/SGPT 23 U/L (21-72); CALCIUM 8.9 mg/dl (8.6-10.4); GLUCOSE,RANDOM 194 mg/dL (75-110)
[2016-10-12] MEDS: (Novolin R) Insulin Human Regular 100 units/ml vial SC SCH ×4 (09:21→21:50)
[2016-10-12] MEDS: Enoxaparin 40 mg Syringe SC SCH (10:55)
--- NOTE | 2016-10-12 18:03 | CARD ---
APPROVED REPORT EKG Measurement Heart [id number] <Conclusion> Normal sinus rhythm Cannot rule out Anterior infarct, age undetermined Abnormal ECG
[2016-10-12] MEDS: (Lantus) Insulin Glargine, Recombinant SC SCH (21:53)
--- NOTE | 2016-10-13 07:07 | CP.PCM.PN ---
Subjective - Date & Time of Evaluation Date of Evaluation: 10/12/16 Time of Evaluation: 07:06 - Subjective Subjective: Patient is feeling better. No chest pain or shortness of breath. Currently feeling extremely well at this time. Able to family. No headache Denies any chest pain or shortness of breath. We'll continue the current treatment Objective - Vital Signs/Intake and Output Vital Signs (last 24 hours): Temp Pulse Resp BP Pulse Ox 98.3 F 70 20 145/81 96 10/12/16 23:50 10/13/16 01:00 10/12/16 23:50 10/12/16 23:50 10/12/16 23:50 Intake and Output: 10/13/16 10/13/16 06:59 18:59 Intake Total 400 Balance 400 - Medications Medications: Current Medications Alprazolam (Xanax) 0.25 mg PO HS [facility] Stop: 10/18/16 22:01 Last Admin: 10/12/16 21:47 Dose: 0.25 mg Aspirin (Ecotrin) 81 mg PO DAILY [facility] Last Admin: 10/12/16 10:55 Dose: 81 mg Clopidogrel Bisulfate (Plavix) 75 mg PO DAILY [facility] Last Admin: 10/12/16 10:56 Dose: 75 mg Donepezil HCl (Aricept) 10 mg PO HS [facility] Last Admin: 10/12/16 21:47 Dose: 10 mg Enoxaparin Sodium (Lovenox) 40 mg SC DAILY [facility] Last Admin: 10/12/16 10:55 Dose: 40 mg Gabapentin (Neurontin) 400 mg PO TID [facility] Last Admin: 10/12/16 17:06 Dose: 400 mg Glipizide (Glucotrol) 10 mg PO BID [facility] Last Admin: 10/12/16 17:05 Dose: 10 mg Insulin Glargine (Lantus) 25 unit SC [facility] Last Admin: 10/12/16 21:53 Dose: 25 units Insulin Human Regular (Novolin R) 0 unit SC [facility] PRN Reason: Protocol Last Admin: 10/12/16 21:50 Dose: Not Given Losartan Potassium (Cozaar) 50 mg PO DAILY [facility] Last Admin: 10/12/16 10:55 Dose: 50 mg [facility] Last Admin: 10/12/16 17:06 Dose: 1,000 mg Metoprolol Tartrate (Lopressor) 50 mg PO BID [facility] Last Admin: 10/12/16 17:08 Dose: 50 mg Quetiapine Fumarate (Seroquel) 25 mg PO HS [facility] Last Admin: 10/12/16 21:47 Dose: 25 mg Rosuvastatin Calcium (Crestor) 5 mg PO HS [facility] Last Admin: 10/12/16 21:47 Dose: 5 mg Sitagliptin Phosphate (Januvia) 50 mg PO DAILY [facility] Last Admin: 10/12/16 10:55 Dose: 50 mg - Labs Labs: 10/12/16 08:01 10/12/16 08:01 PT 11.8 SECONDS (9.7-12.2) 10/11/16 14:21 INR 1.0 10/11/16 14:21 APTT 29 SECONDS (21-34) 10/11/16 14:21
[2016-10-13] MEDS: (Novolin R) Insulin Human Regular 100 units/ml vial SC SCH (07:34)
[2016-10-13 08:01] VITALS: BP 157/81; PULSE 58; TEMP 97.4
--- NOTE | 2016-10-13 09:34 | CP.PCM.DIS ---
Provider - Provider Date of Admission: 10/11/16 15:58 Attending physician: Freida Jeronimo MD Time Spent in preparation of Discharge (in minutes): 45 Hospital Course - Lab Results Lab Results: Most Recent Lab Values WBC 5.0 K/uL (4.8-10.8) 10/12/16 08:01 RBC 4.67 Mil/uL (4.40-5.90) 10/12/16 08:01 Hgb 13.4 g/dL (12.0-18.0) 10/12/16 08:01 Hct 38.8 % (35.0-51.0) 10/12/16 08:01 MCV 83.1 fL (80.0-94.0) 10/12/16 08:01 MCH 28.6 pg (27.0-31.0) 10/12/16 08:01 MCHC 34.4 g/dL (33.0-37.0) 10/12/16 08:01 RDW 14.3 % (11.5-14.5) 10/12/16 08:01 Plt Count 199 K/uL (130-400) 10/12/16 08:01 MPV 8.3 fL (7.2-11.7) 10/12/16 08:01 Neut % (Auto) 67.2 % (50.0-75.0) 10/11/16 14:21 Lymph % (Auto) 21.7 % (20.0-40.0) 10/11/16 14:21 [place] % (Auto) 7.9 % (0.0-10.0) 10/11/16 14:21 Eos % (Auto) 2.1 % (0.0-4.0) 10/11/16 14:21 Baso % (Auto) 1.1 % (0.0-2.0) 10/11/16 14:21 Neut # 3.5 K/uL (1.8-7.0) 10/11/16 14:21 Lymph # 1.1 K/uL (1.0-4.3) 10/11/16 14:21 [place] # 0.4 K/uL (0.0-0.8) 10/11/16 14:21 Eos # 0.1 K/uL (0.0-0.7) 10/11/16 14:21 Baso # 0.1 K/uL (0.0-0.2) 10/11/16 14:21 PT 11.8 SECONDS (9.7-12.2) 10/11/16 14:21 INR 1.0 10/11/16 14:21 APTT 29 SECONDS (21-34) 10/11/16 14:21 Sodium 139 mmol/L (132-148) 10/12/16 08:01 Potassium 3.6 mmol/L (3.6-5.2) 10/12/16 08:01 Chloride 101 mmol/L (98-107) 10/12/16 08:01 Carbon Dioxide 27 mmol/L (22-30) 10/12/16 08:01 Anion Gap 14 (10-20) 10/12/16 08:01 BUN 13 mg/dL (9-20) 10/12/16 08:01 Creatinine 0.8 MG/DL (0.8-1.5) 10/12/16 08:01 Est GFR ( Amer) > 60 10/12/16 08:01 Est GFR (Non-Af Amer) > 60 10/12/16 08:01 POC Glucose (mg/dL) 104 mg/dL (65-110) 10/13/16 06:36 Random Glucose 194 mg/dL (75-110) H 10/12/16 08:01 Calcium 8.9 mg/dl (8.6-10.4) 10/12/16 08:01 Total Bilirubin 0.5 mg/dL (0.2-1.3) 10/12/16 08:01 AST 16 U/L (17-59) L 10/12/16 08:01 ALT 23 U/L (21-72) 10/12/16 08:01 Alkaline Phosphatase 74 U/L (38-126) 10/12/16 08:01 Total Creatine Kinase 39 U/L (55-170) L 10/12/16 08:01 CK-MB (Mass) 0.94 ng/mL (0.0-3.38) 10/12/16 08:01 Troponin I < 0.0120 ng/mL (0.00-0.120) 10/11/16 14:21 Troponin I, Quant < 0.0120 ng/mL (0.00-0.120) 10/12/16 08:01 Total Protein 6.7 g/dL (6.3-8.3) 10/12/16 08:01 Albumin 3.4 g/dL (3.5-5.0) L 10/12/16 08:01 Globulin 3.3 gm/dL (2.2-3.9) 10/12/16 08:01 Albumin/Globulin Ratio 1.0 (1.0-2.1) 10/12/16 08:01 Urine Color Yellow (YELLOW) 10/11/16 16:50 Urine Clarity Clear (Clear) 10/11/16 16:50 Urine pH 6.0 (5.0-8.0) 10/11/16 16:50 Ur Specific [place] 1.018 (1.003-1.030) 10/11/16 16:50 Urine Protein Negative mg/dL (NEGATIVE) 10/11/16 16:50 Urine Glucose (UA) 3+ mg/dL (Normal) H 10/11/16 16:50 Urine Ketones Negative mg/dL (NEGATIVE) 10/11/16 16:50 Urine Blood Negative (NEGATIVE) 10/11/16 16:50 Urine Nitrate Negative (NEGATIVE) 10/11/16 16:50 Urine Bilirubin Negative (NEGATIVE) 10/11/16 16:50 Urine Urobilinogen Normal mg/dL (0.2-1.0) 10/11/16 16:50 Ur Leukocyte Esterase Neg Dung/uL (Negative) 10/11/16 16:50 Urine WBC (Auto) < 1 /hpf (0-5) 10/11/16 16:50 Urine RBC (Auto) 2 /hpf (0-3) 10/11/16 16:50 Ur Squamous Epith Cells < 1 /hpf (0-5) 10/11/16 16:50 - Hospital Course Hospital Course: History of Present Illness: Chief complaint: Patient came to the emergency room with chest pain. History present illness: 70-year-old male with history of diabetes hypertension CAD hypercholesteremia and advanced dementia. Patient is morning came to the office, at that time he was having increasing chest discomfort, and he left my office and came to the ER. In the emergency room patient was complaining of mid sternal chest pain, radiating to the left side of the shoulder, associated with numbness in the left hand. He was also having some increasing weakness. Some dizziness noted, sweating present. Needed further management. Past medical history: Diabetes hypertension CAD hypercholesteremia advanced dementia Allergy no known drug allergy Personal history: Used to be a smoker in the past. Currently living with his . I had a multiple discuss with the patient's family also. Patient was sent to rehabilitation multiple times, and he left the hospital and also long term AGAINST MEDICAL ADVICE a few times Review of system: Currently he is feeling okay, he has no headache or visual symptom, he is feeling better and he wanted to leave On examination: Temp Pulse Resp BP Pulse Ox 98.4 F 67 16 146/68 97 10/11/16 20:21 10/11/16 20:21 10/11/16 20:21 10/11/16 20:21 10/11/16 20:21 Vital signs reviewed No neck vein distention noted Chest good air entry bilaterally, no wheezing or rales noted CVS regular heart sound, no murmur noted Abdomen soft, nontender. Extremities no pedal edema Patient is confused at this time Patient's labs reviewed Nonspecific. Cardiac enzymes are negative so far, EKG nonspecific Assessment/recommendation: 76-year-old male with multiple medical problems hypertension diabetes high cholesterol severe spinal stenosis advanced dementia. Patient has advanced dementia. Currently admitted with the chest pain nonspecific. Radiating to the left shoulder. Unlikely cardiac in origin. We'll closely monitor. If the enzymes are negative tomorrow, possible discharge planning the morning. His medications reviewed Reconsilation done. We'll follow the patient Patient is clinically stable. Chest pain is improving. He will be discharged home today and he will follow up as an outpatient Discharge Plan - Follow Up Plan Condition: STABLE Disposition: HOME/ ROUTINE Instructions: Chest Pain (DC) Additional Instructions: follow up in 's office in one week. Referrals: Freida Jeronimo MD [Staff Provider] -
[2016-10-13] MEDS: Enoxaparin 40 mg Syringe SC SCH (09:46)
[2016-10-17 05:09] VITALS: O2SAT 99
== END 2016-10-13 14:56 | disposition home or self-care (01) ==
LOC: C.ER 13:35 → C.9E 15:58 → C.5T 19:52
PROVIDERS: ADMIT Internal Medicine; ATTEND Internal Medicine
DX: R07.89 Other chest pain (principal); E78.5 Hyperlipidemia, unspecified; I10 Essential (primary) hypertension; J45.909 Unspecified asthma, uncomplicated; M48.00 Spinal stenosis, site unspecified; Z87.891 Personal history of nicotine dependence; F03.90 Unspecified dementia, unspecified severity, without behavioral disturbance, psychotic disturbance, mood disturbance, and anxiety
CPT/HCPCS: 36415; 71010; 80053; 81001; 82550; 82553; 82948; 84484; 85025; 85027; 85610; 85730; 93005; 94660; 97116; 97162; 99285; G0378; G8978; G8979; J1650

== ENCOUNTER 2016-11-16 14:08 | Emergency (ER) | payer MEDICARE, MEDICAID ==
[2016-11-16 14:08] VITALS: PULSE 113; BMI 26.6
[2016-11-16 14:21] VITALS: BP 163/89; PULSE 81; RESP 18; TEMP 97.2; O2SAT 98
--- NOTE | 2016-11-16 15:16 | C.PDOC ---
History Of Present Illness 76 y/o male with Hx of HTN, CAD and Dementia presents to ED with complaints of swelling to foreskin and gland of penis for 2 days. Patient reports area to be swollen, red and painful. Patient denies this happening before, urinating issues , fever, chills or any other complaints at this time. Time Seen by Provider: 11/16/16 14:29 Chief Complaint (Nursing): Male Genitourinary History Per: Patient History/Exam Limitations: no limitations Onset/Duration Of Symptoms: Days Current Symptoms Are (Timing): Still Present Past Medical History Reviewed: Historical Data, Nursing Documentation, Vital Signs Vital Signs: Last Vital Signs Temp 97.2 F L 11/16/16 14:17 Pulse 81 11/16/16 14:17 Resp 18 11/16/16 14:17 BP 163/89 H 11/16/16 14:17 Pulse Ox 98 11/16/16 15:24 - Medical History PMH: Anxiety, Arthritis, Asthma, Back Problems (Chronic Pain), Dementia, Diabetes, Gastritis, HTN, Hypercholesterolemia, Hyperlipidemia Surgical History: Coronary Stent - [facility] Procedures CORONAR ARTERIOGR-2 CATH (12/02/13) LEFT HEART CARDIAC CATH (12/02/13) LT HEART ANGIOCARDIOGRAM (12/02/13) Family History: States: No Known Family Hx - Social History Hx Tobacco Use: Yes Hx Alcohol Use: No Hx Substance Use: No - Immunization History Hx Tetanus Toxoid Vaccination: No Hx Influenza Vaccination: No Hx Pneumococcal Vaccination: No Review Of Systems Except As Marked, All Systems Reviewed And Found Negative. Constitutional: Negative for: Fever, Chills Cardiovascular: Negative for: Chest Pain Respiratory: Negative for: Shortness of Breath Gastrointestinal: Negative for: Nausea, Vomiting Genitourinary: Positive for: Penile Pain. Negative for: Dysuria, Frequency, Hematuria Musculoskeletal: Negative for: Back Pain Skin: Negative for: Rash Physical Exam - Physical Exam Appears: Non-toxic, No Acute Distress Skin: Normal Color, Warm, Dry, No Rash Head: Atraumatic, Normacephalic Eye(s): bilateral: Normal Inspection Oral Mucosa: Moist Neck: Normal ROM, Supple Chest: Symmetrical Cardiovascular: Rhythm Regular, No Murmur Respiratory: Normal Breath Sounds, No Rales, No Rhonchi, No Wheezing Male Genital: No Testicular Tenderness, No Inguinal Swelling, Other (Foreskin ands gland of penis erythematous, Foreskin retracted and cannot be reduced, Glands red) Extremity: Normal ROM, Capillary Refill (<2 seconds) Neurological/Psych: Oriented x3 ED Course And Treatment O2 Sat by Pulse Oximetry: 98 (RA) Pulse Ox Interpretation: Normal Progress Note: Penis wrapped with elastic wrap and ice pack applied. Dr Pedroza contacted and will evaluate in ED. 4:20 Dr Pedroza arrives to evaluate patient but stretcher empty. Patient eloped from ED without notifying staff. Kaden wrap and ice pack found on stretcher. Disposition - Disposition Disposition: ELOPEMENT - ER ONLY Disposition Time: 16:22 Condition: UNKNOWN - Clinical Impression Clinical Impression: Paraphimosis - Scribe Statement The provider has reviewed the documentation as recorded by the Scribkelsi Turner All medical record entries made by the Jebibe were at my direction and personally dictated by me. I have reviewed the chart and agree that the record accurately reflects my personal performance of the history, physical exam, medical decision making, and the department course for this patient. I have also personally directed, reviewed, and agree with the discharge instructions and disposition.
== END 2016-11-16 14:36 | disposition left against medical advice (07) ==
LOC: C.ER 14:08
DX: N47.2 Paraphimosis (principal)

== ENCOUNTER 2016-11-30 16:16 | Emergency (ER) | payer MEDICARE, MEDICAID ==
[2016-11-30 16:17] VITALS: PULSE 113; BMI 26.6
[2016-11-30 16:27] VITALS: TEMP 97.5
[2016-11-30 17:11] VITALS: BP 126/83; PULSE 95; RESP 16; O2SAT 96
--- NOTE | 2016-11-30 17:29 | C.PDOC ---
History Of Present Illness 76 year old male presents to the ED for a wound check. Patient was seen at [facility] yesterday for evaluation of an abscess to his left buttock region. Patient states he underwent I&D of abscess and sutures were applied with a drain in place. Patient reports to this ED for a wound check. He denies fever, chills, and discharge from wound site. Time Seen by Provider: 11/30/16 16:55 Chief Complaint (Nursing): Wound Check History Per: Patient History/Exam Limitations: no limitations Onset/Duration Of Symptoms: Hrs Current Symptoms Are (Timing): Still Present Location Of Injury: Left: Buttock Quality Of Symptoms: denies: Draining Additional History Per: Patient Past Medical History Reviewed: Historical Data, Nursing Documentation, Vital Signs Vital Signs: Last Vital Signs Temp 97.5 F L 11/30/16 17:10 Pulse 95 H 11/30/16 17:10 Resp 16 11/30/16 17:10 BP 126/83 11/30/16 17:10 Pulse Ox 96 11/30/16 17:46 - Medical History PMH: Anxiety, Arthritis, Asthma, Back Problems (Chronic Pain), Dementia, Diabetes, Gastritis, HTN, Hypercholesterolemia, Hyperlipidemia Denies: Chronic Kidney Disease Surgical History: Coronary Stent - [facility] Procedures CORONAR ARTERIOGR-2 CATH (12/02/13) LEFT HEART CARDIAC CATH (12/02/13) LT HEART ANGIOCARDIOGRAM (12/02/13) Family History: States: Unknown Family Hx - Social History Hx Tobacco Use: Yes Hx Alcohol Use: No Hx Substance Use: No - Immunization History Hx Tetanus Toxoid Vaccination: No Hx Influenza Vaccination: No Hx Pneumococcal Vaccination: No Review Of Systems Constitutional: Negative for: Fever, Chills Skin: Positive for: Other (wound check to left buttock ) Physical Exam - Physical Exam Appears: Non-toxic, No Acute Distress Skin: Normal Color, Warm, Dry, Other (dressing in place on left buttock. minimal drainage, mild surrounding erythema and induration around wound site ) Head: Atraumatic, Normacephalic Eye(s): bilateral: Normal Inspection Oral Mucosa: Moist Neck: Supple Chest: Symmetrical, No Deformity, No Tenderness Cardiovascular: Rhythm Regular, No Murmur Respiratory: Normal Breath Sounds, No Rales, No Rhonchi, No Wheezing Extremity: Normal ROM, Capillary Refill (less than 2 seconds ) Neurological/Psych: Oriented x3, Normal Speech, Normal Cognition Gait: Steady ED Course And Treatment O2 Sat by Pulse Oximetry: 96 (on RA) Pulse Ox Interpretation: Normal Progress Note: Dressing removed from wound site. Drain and sutures removed. Wound was cleaned and repacked with sterile iodoform gauze. Patient tolerated well. Disposition - Disposition Disposition: HOME/ ROUTINE Disposition Time: 17:30 Condition: IMPROVED Additional Instructions: Patient advised to return in 2 days for repeat wound check. Instructions: Abscess Incision and Drainage (ED) - Clinical Impression Clinical Impression: Gluteal abscess - Scribe Statement The provider has reviewed the documentation as recorded by the Scribe (Dejah Baxter) Provider Attestation: All medical record entries made by the Scribe were at my direction and personally dictated by me. I have reviewed the chart and agree that the record accurately reflects my personal performance of the history, physical exam, medical decision making, and the department course for this patient. I have also personally directed, reviewed, and agree with the discharge instructions and disposition.
== END 2016-11-30 17:35 | disposition home or self-care (01) ==
LOC: C.ER 16:16
DX: L02.31 Cutaneous abscess of buttock (principal)

== ENCOUNTER 2016-12-05 16:15 | Inpatient (IN) | payer MEDICARE, MEDICAID ==
[2016-12-05 16:15] VITALS: PULSE 113; BMI 26.6
--- NOTE | 2016-12-05 17:44 | C.PDOC ---
History Of Present Illness 76 year old male who presents to the ER with a complaint of an abscess to the left buttock. Prior records reviewed, patient was seen on 12/01 for a wound check after an I&D he had done at [facility]; however, patient denies any I&D procedure. Denies other complaints at this time. Time Seen by Provider: 12/05/16 17:04 Chief Complaint (Nursing): Abnormal Skin Integrity History Per: Patient History/Exam Limitations: no limitations Onset/Duration Of Symptoms: Days Current Symptoms Are (Timing): Still Present Location Of Injury: Left: Buttock Quality Of Symptoms: Painful Recent travel outside of the [place]: No Past Medical History Reviewed: Historical Data, Nursing Documentation, Vital Signs Vital Signs: Last Vital Signs Temp 97.5 F L 12/05/16 16:50 Pulse 75 12/05/16 16:50 Resp 18 12/05/16 16:50 BP 145/90 12/05/16 16:50 Pulse Ox 96 12/05/16 18:04 - Medical History PMH: Anxiety, Arthritis, Asthma, Back Problems (Chronic Pain), Dementia, Diabetes, Gastritis, HTN, Hypercholesterolemia, Hyperlipidemia Surgical History: Coronary Stent - [facility] Procedures CORONAR ARTERIOGR-2 CATH (12/02/13) LEFT HEART CARDIAC CATH (12/02/13) LT HEART ANGIOCARDIOGRAM (12/02/13) Family History: States: Unknown Family Hx - Social History Hx Tobacco Use: Yes Hx Alcohol Use: No Hx Substance Use: No - Immunization History Hx Tetanus Toxoid Vaccination: No Hx Influenza Vaccination: No Hx Pneumococcal Vaccination: No Review Of Systems Constitutional: Negative for: Fever, Chills Skin: Positive for: Other (Abscess) Physical Exam - Physical Exam Appears: Non-toxic, No Acute Distress Skin: Warm, Dry, Other (3cmx1 1/2cm area of mild erythema and induration around incision, scant purulent draining when alot of pressure applied, old skin marker line surrounding area with less erythema.) Head: Atraumatic, Normacephalic Oral Mucosa: Moist Back: Normal Inspection Extremity: Normal ROM (x4) ED Course And Treatment - Laboratory Results Result Diagrams: 12/05/16 18:51 12/05/16 18:51 O2 Sat by Pulse Oximetry: 96 (Room air) Pulse Ox Interpretation: Normal Medical Decision Making Medical Decision Making: Plan: Wound culture Tylenol Finger stick Discussed with PMD, Dr. Jeronimo, who states patient is confused at baseline due to dementia which is why patient cannot recall previous ER visit. 752 pm pt remains confused, blood glucose elevated. will place pt on obs for glycemic control. pt to be put on 1:1, discussed with Dr Jeronimo. Disposition Discussed With .: Freida Jeronimo Doctor Will See Patient In The: Hospital - Disposition Disposition Time: 19:56 Condition: STABLE Forms: [employer] ([place]) - Clinical Impression Clinical Impression: Hyperglycemia, Gluteal abscess - Scribe Statement The provider has reviewed the documentation as recorded by the Scribe Demond Alcantara All medical record entries made by the Scribe were at my direction and personally dictated by me. I have reviewed the chart and agree that the record accurately reflects my personal performance of the history, physical exam, medical decision making, and the department course for this patient. I have also personally directed, reviewed, and agree with the discharge instructions and disposition.
[2016-12-05] MEDS ORDERED: Sodium Chloride 0.9% 500 ML IV ONE (18:20)
[2016-12-05 19:11] LABS: BASO # 0.1 K/uL (0.0-0.2); BASO % 1.2 % (0.0-2.0); EOS # 0.1 K/uL (0.0-0.7); EOS % 1.5 % (0.0-4.0); HEMATOCRIT 42.4 % (35.0-51.0); LYMPH # 1.2 K/uL (1.0-4.3); LYMPH % 21.4 % (20.0-40.0); MEAN CELL VOLUME 83.5 fL (80.0-94.0); MEAN CORPUSCULAR HEMOGLOBIN 28.6 pg (27.0-31.0); MEAN CORPUSCULAR HGB CONC 34.2 g/dL (33.0-37.0); MEAN PLATELET VOLUME 8.5 fL (7.2-11.7); MONO # 0.4 K/uL (0.0-0.8); MONO % 7.8 % (0.0-10.0); NRBC % 0.1 % (0.0-2.0); WHITE BLOOD COUNT 5.8 K/uL (4.8-10.8)
[2016-12-05 19:18] LABS: CHLORIDE 93 mmol/L (98-107)
[2016-12-05 19:19] LABS: POTASSIUM 4.8 mmol/L (3.6-5.2); SODIUM 128 mmol/L (132-148)
[2016-12-05 19:21] LABS: GFR AFRICAN-AMERICAN > 60
[2016-12-05 19:22] LABS: BLOOD UREA NITROGEN 13 mg/dL (9-20); CALCIUM 8.8 mg/dl (8.6-10.4); CARBON DIOXIDE 24 mmol/L (22-30); GLUCOSE,RANDOM 317 mg/dL (75-110)
[2016-12-05] MEDS ORDERED: (Novolin R) Insulin Human Regular 100 units/ml vial SC ONE (19:55)
[2016-12-05] MEDS ORDERED: (Novolin R) Insulin Human Regular 100 units/ml vial ONE (20:11)
[2016-12-05] MEDS: Sodium Chloride 0.9% 1,000 ML IV SCH (20:12)
[2016-12-05] MEDS: (Novolin R) Insulin Human Regular 100 units/ml vial SC SCH (22:39)
[2016-12-05] MEDS: (Lantus) Insulin Glargine, Recombinant SC SCH (22:42)
[2016-12-06] MEDS: Clindamycin 300 MG in Sodium Chloride 0.9% 50 ML IVPB SCH ×3 (00:35→16:55)
[2016-12-06] MEDS: Sodium Chloride 0.9% 1,000 ML IV SCH ×3 (07:53→19:51)
[2016-12-06] MEDS: (Novolin R) Insulin Human Regular 100 units/ml vial SC SCH ×4 (08:27→21:36)
[2016-12-06] MEDS ORDERED: GlipiZIDE 10 mg SR Tab PO SCH (10:00)
[2016-12-06] MEDS: GlipiZIDE 10 mg SR Tab PO SCH ×2 (10:56→17:43)
--- NOTE | 2016-12-06 16:16 | CP.PCM.PN ---
Subjective - Date & Time of Evaluation Date of Evaluation: 12/06/16 Time of Evaluation: 16:15 - Subjective Subjective: changed from obs to IP; wound cx + staph (preliminary); pending final report and r/o mrsa. to continue iv abx clinda; wound care and dressing changes with topical bacitracin ordered daily and prn. no further orders at this time. Objective - Vital Signs/Intake and Output Vital Signs (last 24 hours): Temp Pulse Resp BP Pulse Ox 97.7 F 67 20 166/90 H 97 12/06/16 07:32 12/06/16 07:32 12/06/16 07:32 12/06/16 07:32 12/06/16 07:32 Intake and Output: 12/06/16 12/06/16 06:59 18:59 Intake Total 1390 Output Total 150 Balance 1240 - Medications Medications: Current Medications Aspirin (Ecotrin) 81 mg PO DAILY [facility] Last Admin: 12/06/16 10:56 Dose: 81 mg Donepezil HCl (Aricept) 10 mg PO HS [facility] Last Admin: 12/05/16 22:43 Dose: 10 mg Gabapentin (Neurontin) 300 mg PO TID [facility] Last Admin: 12/06/16 13:53 Dose: 300 mg Glipizide (Glucotrol Xl) 10 mg PO BID [facility] Last Admin: 12/06/16 10:56 Dose: 10 mg Heparin Sodium (Porcine) (Heparin) 5,000 units SC Q8 [facility] Last Admin: 12/06/16 13:53 Dose: 5,000 units Sodium Chloride (Sodium Chloride 0.9%) 1,000 mls @ 100 mls/hr IV .Q10H [facility] Last Admin: 12/06/16 07:53 Dose: 100 mls/hr Clindamycin Phosphate 300 mg/ (Sodium Chloride) 52 mls @ 100 mls/hr IVPB Q8H [facility] Last Admin: 12/06/16 08:27 Dose: 100 mls/hr Insulin Glargine (Lantus) 15 unit SC HS [facility] Last Admin: 12/05/16 22:42 Dose: 15 unit Insulin Human Regular (Novolin R) 0 unit SC ACHS [facility] PRN Reason: Protocol Last Admin: 12/06/16 12:41 Dose: 3 unit Losartan Potassium (Cozaar) 25 mg PO DAILY [facility] Last Admin: 12/06/16 10:56 Dose: 25 mg Metformin HCl (Glucophage Xr) 750 mg PO BID [facility] Last Admin: 12/06/16 10:56 Dose: 750 mg Pneumococcal Polyvalent Vaccine (Pneumovax 23 Vaccine) 0.5 ml IM .ONCE ONE Stop: 12/07/16 10:01 Rosuvastatin Calcium (Crestor) 5 mg PO HS [facility] Last Admin: 12/05/16 22:36 Dose: 5 mg - Labs Labs: 12/05/16 18:51 12/05/16 18:51
[2016-12-06] MEDS: Bacitracin Ointment 30 GM TUBE TOP SCH (17:00)
--- NOTE | 2016-12-06 19:30 | CP.PCM.HP ---
History of Present Illness - History of Present Illness History of Present Illness: Chief complaint: Swelling in the left gluteal area History of present illness: 76-year-old male with a history of diabetes hypertension hypercholesterolemia, peripheral vascular disease, spinal stenosis, dementia came to the emergency room with a swelling in the left gluteal area. 3 days ago patient came to the emergency room with the swelling, at that time he underwent incision and drainage, but symptoms got worse, he came into the emergency room. In the ER patient has no fever. He did not have any nausea vomiting. But he was not feeling well. Complaint of increasing pain. Needed hospitalization for further management of left gluteal swelling, indurated mass. Past medical history: Hypertension, hypercholesterolemia, diabetes, peripheral vascular disease, spinal stenosis, dementia Allergic: None Past surgical history: Used to smoke in the past, denies any alcohol Family history significant for hypertension. Medications noted from the chart, but the patient is very noncompliant with medication. Review of system: Denies any headache. Complaint of pain generalized. Poor intake. Gluteal swelling Examination: Vital signs stable. Chest good air entry bilaterally regular heart sound. HEENT PERRLA Heart sound. Abdomen soft nontender. Pedal edema 1+ noted. 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 Wound culture taken Assessment and recommendation: 76-year-old male with a noncompensatory medication, diabetes hypertension or high cholesterol spinal stenosis dementia. Poorly controlled diabetes. Admitted with a left gluteal abscess, complicated with a possible sepsis. Currently on intravenous IV antibiotic. Waiting for the culture. Infectious disease evaluation. Glucose control. Will follow the patient. Present on Admission - Present on Admission Any Indicators Present on Admission: No History of DVT/PE: No History of Uncontrolled Diabetes: No Urinary Catheter: No Past Patient History - Infectious Disease Hx of Infectious Diseases: None - Past Medical History & Family History Past Medical History?: Yes - Past Social History Smoking Status: Former Smoker - CARDIAC Hx Hypercholesterolemia: Yes Hx Hypertension: Yes - PULMONARY Hx Asthma: Yes - NEUROLOGICAL Hx Dementia: Yes - HEENT Hx HEENT Problems: Yes (SEE COMMENT) Other/Comment: has eyeglasses for reading but doesn't use. - RENAL Hx Chronic Kidney Disease: No - ENDOCRINE/METABOLIC Hx Diabetes Mellitus Type 2: Yes - HEMATOLOGICAL/ONCOLOGICAL Hx Blood Disorders: No - INTEGUMENTARY Hx Dermatological Problems: No - MUSCULOSKELETAL/RHEUMATOLOGICAL Hx Arthritis: Yes Hx Falls: No - GASTROINTESTINAL Hx Gastritis: Yes - GENITOURINARY/GYNECOLOGICAL Hx Genitourinary Disorders: No - PSYCHIATRIC Hx Anxiety: Yes Hx Substance Use: No - SURGICAL HISTORY Hx Coronary Stent: Yes - ANESTHESIA Hx Anesthesia: Yes Hx Anesthesia Reactions: No Hx Malignant Hyperthermia: No Meds Home Medications: Home Medication List Medication Instructions Recorded Confirmed Type Aspirin [Ecotrin] 81 mg PO DAILY tabec 12/10/16 Rx Clindamycin [Cleocin] 300 mg IVPB Q8H 7 Days vial 12/10/16 Rx Donepezil [Aricept] 10 mg PO HS tab 12/10/16 Rx Gabapentin [Neurontin] 300 mg PO TID cap 12/10/16 Rx GlipiZIDE SR [Glucotrol XL] 10 mg PO BID tab 12/10/16 Rx Insulin Glargine, Recombina 15 unit SC HS unit 12/10/16 Rx [Lantus] Insulin Human Regular [Novolin R] 0 unit SC ACHS unit 12/10/16 Rx Losartan [Cozaar] 25 mg PO DAILY tab 12/10/16 Rx Mupirocin 2% Ointment [Bactroban 1 dose TOP BID tube 12/10/16 Rx Ointment] Rosuvastatin Calcium [Crestor] 5 mg PO HS tab 12/10/16 Rx Saccharomyces Boulardi [Florastor] 250 mg PO TID 14 Days cap 12/10/16 Rx metFORMIN ER [glucoPHAGE XR] [address] 12/10/16 Rx Allergies/Adverse Reactions: Allergies Allergy/AdvReac Type Severity Reaction Status Date / Time morphine Allergy Intermediate SWELLING Verified 12/05/16 16:48 Results - Vital Signs Recent Vital Signs: Last Vital Signs Temp 97.7 F 12/06/16 15:00 Pulse 62 12/06/16 15:00 Resp 22 12/06/16 15:00 BP 150/85 12/06/16 15:00 Pulse Ox 98 12/06/16 15:00 - Labs Result Diagrams: 12/10/16 07:52 12/10/16 07:52 Labs: Laboratory Results - last 24 hr 12/05/16 12/05/16 12/05/16 18:51 21:06 22:38 Sodium 128 L Potassium 4.8 Chloride 93 L Carbon Dioxide 24 Anion Gap 16 BUN 13 Creatinine 0.7 L Est GFR ( Amer) > 60 Est GFR (Non-Af Amer) > 60 POC Glucose (mg/dL) 324 H 308 H Random Glucose 317 H Calcium 8.8 12/06/16 12/06/16 12/06/16 02:04 07:19 11:22 Sodium Potassium Chloride Carbon Dioxide Anion Gap BUN Creatinine Est GFR ( Amer) Est GFR (Non-Af Amer) POC Glucose (mg/dL) 165 H 285 H 297 H Random Glucose Calcium 12/06/16 16:15 Sodium Potassium Chloride Carbon Dioxide Anion Gap BUN Creatinine Est GFR ( Amer) Est GFR (Non-Af Amer) POC Glucose (mg/dL) 193 H Random Glucose Calcium
[2016-12-06] MEDS: (Lantus) Insulin Glargine, Recombinant SC SCH (22:08)
[2016-12-07] MEDS: Clindamycin 300 MG in Sodium Chloride 0.9% 50 ML IVPB SCH ×3 (00:15→16:36)
[2016-12-07] MEDS: Sodium Chloride 0.9% 1,000 ML IV SCH ×3 (02:00→21:03)
[2016-12-07] MEDS: (Novolin R) Insulin Human Regular 100 units/ml vial SC SCH ×4 (08:06→21:48)
[2016-12-07] MEDS ORDERED: Pneumococcal 23-Valent Vaccine IM ONE (10:00)
[2016-12-07] MEDS: GlipiZIDE 10 mg SR Tab PO SCH ×2 (11:52→17:50)
[2016-12-07] MEDS: Bacitracin Ointment 30 GM TUBE TOP SCH (11:58)
[2016-12-07] MEDS ORDERED: Bacitracin 500 Units/gm Oint Foilpak UD TOP SCH (13:15)
--- NOTE | 2016-12-07 17:53 | CP.PCM.CON ---
History of Present Illness - History of Present Illness History of Present Illness: SURGERY CONSULT NOTE FOR DR. DOBBINS 76yo M with PMHx of HTN, DM, hyperlipidemia presents to the ED with cyst on his left buttock. He noticed it 1-3 months ago. He describes the pain as dull. It does not radiate anywhere. At its worst, the pain is 8/10. The pain is intermittent. The pain is exacerbated by moving around. Pain is relieved by staying still. PMHx: HTN, DM, hyperlipidemia Surg: cyst removal Allerg: morphine Social history: Review of Systems - Review of Systems All systems: reviewed and no additional remarkable complaints except (as per HPI ) Past Patient History - Infectious Disease Hx of Infectious Diseases: None - Past Medical History & Family History Past Medical History?: Yes - Past Social History Smoking Status: Former Smoker - CARDIAC Hx Cardiac Disorders: Yes (coronary stent) Hx Hypercholesterolemia: Yes Hx Hypertension: Yes - PULMONARY Hx Asthma: Yes - NEUROLOGICAL Hx Dementia: Yes - HEENT Hx HEENT Problems: Yes (SEE COMMENT) Other/Comment: has eyeglasses for reading but doesn't use. - RENAL Hx Chronic Kidney Disease: No - ENDOCRINE/METABOLIC Hx Diabetes Mellitus Type 2: Yes - HEMATOLOGICAL/ONCOLOGICAL Hx Blood Disorders: No - INTEGUMENTARY Hx Dermatological Problems: No - MUSCULOSKELETAL/RHEUMATOLOGICAL Hx Arthritis: Yes (back pain) - GASTROINTESTINAL Hx Gastritis: Yes - GENITOURINARY/GYNECOLOGICAL Hx Genitourinary Disorders: No - PSYCHIATRIC Hx Anxiety: Yes Hx Substance Use: No - SURGICAL HISTORY Hx Coronary Stent: Yes - ANESTHESIA Hx Anesthesia: Yes Hx Anesthesia Reactions: No Hx Malignant Hyperthermia: No Meds Allergies/Adverse Reactions: Allergies Allergy/AdvReac Type Severity Reaction Status Date / Time morphine Allergy Intermediate SWELLING Verified 12/05/16 16:48 - Medications Medications: Current Medications Aspirin (Ecotrin) 81 mg PO DAILY [facility] Last Admin: 12/07/16 11:53 Dose: 81 mg Donepezil HCl (Aricept) 10 mg PO HS [facility] Last Admin: 12/06/16 22:08 Dose: 10 mg Gabapentin (Neurontin) 300 mg PO TID [facility] Last Admin: 12/07/16 13:18 Dose: 300 mg Glipizide (Glucotrol Xl) 10 mg PO BID [facility] Last Admin: 12/07/16 11:52 Dose: 10 mg Heparin Sodium (Porcine) (Heparin) 5,000 units SC Q8 [facility] Last Admin: 12/07/16 13:16 Dose: 5,000 units Sodium Chloride (Sodium Chloride 0.9%) 1,000 mls @ 100 mls/hr IV .Q10H [facility] Last Admin: 12/07/16 12:53 Dose: 100 mls/hr Clindamycin Phosphate 300 mg/ (Sodium Chloride) 52 mls @ 100 mls/hr IVPB Q8H [facility] Last Admin: 12/07/16 16:36 Dose: 100 mls/hr Vancomycin HCl 1 gm/ Sodium (Chloride) 250 mls @ 166.7 mls/hr IVPB Q24H [facility] Last Admin: 12/06/16 19:50 Dose: 166.7 mls/hr Insulin Glargine (Lantus) 15 unit SC [facility] Last Admin: 12/06/16 22:08 Dose: 15 unit Insulin Human Regular (Novolin R) 0 unit SC ACHS [facility] PRN Reason: Protocol Last Admin: 12/07/16 12:52 Dose: 2 unit Losartan Potassium (Cozaar) 25 mg PO DAILY [facility] Last Admin: 12/07/16 11:52 Dose: 25 mg Metformin HCl (Glucophage Xr) 750 mg PO BID [facility] Last Admin: 12/07/16 11:53 Dose: 750 mg Mupirocin (Bactroban Ointment) 0 gm TOP BID [facility] Rosuvastatin Calcium (Crestor) 5 mg PO [facility] Last Admin: 12/06/16 22:08 Dose: 5 mg Physical Exam - Constitutional Appears: Well, Non-toxic, No Acute Distress - Head Exam Head Exam: ATRAUMATIC, NORMAL INSPECTION - Eye Exam Eye Exam: EOMI, Normal appearance - Respiratory Exam Respiratory Exam: NORMAL BREATHING PATTERN. absent: Respiratory Distress - Cardiovascular Exam Cardiovascular Exam: +S1, +S2 - GI/Abdominal Exam GI & Abdominal Exam: Soft. absent: Distended, Tenderness - Neurological Exam Neurological exam: Alert - Psychiatric Exam Psychiatric exam: Normal Affect, Normal Mood - Skin Skin Exam: Normal Color Additional comments: Cyst on left buttock Results - Vital Signs Recent Vital Signs: Last Vital Signs Temp 97.5 F L 12/07/16 16:00 Pulse 70 12/07/16 16:00 Resp 18 12/07/16 16:00 BP 147/78 12/07/16 16:00 Pulse Ox 95 12/07/16 16:00 - Labs Result Diagrams: 12/05/16 18:51 12/05/16 18:51 Labs: Laboratory Results - last 24 hr 12/06/16 12/07/16 12/07/16 21:34 07:10 11:23 POC Glucose (mg/dL) 150 H 237 H 211 H 12/07/16 16:37 POC Glucose (mg/dL) 230 H Assessment & Plan - Assessment and Plan (Free Text) Assessment: 76yo M with PMHx of HTN, DM, hyperlipidemia with cyst on left buttock - Afebrile, VSS - Bedside excision of cyst - Area covered with sterile dressing - Discussed plan with Dr. Jose Dan PGY-3
[2016-12-07] MEDS: (Lantus) Insulin Glargine, Recombinant SC SCH (22:19)
--- NOTE | 2016-12-07 23:45 | CP.PCM.PN ---
Subjective - Date & Time of Evaluation Date of Evaluation: 12/07/16 Time of Evaluation: 23:45 - Subjective Subjective: Patient is having increasing pain. Mild weakness noted. Eating okay, no diarrhea noted. woundculture culture showing evidence of gram-positive cocci Examination: Vital signs reviewed Chest good air entry bilaterally and is also nontender abdomen Gluteal wound induration noted. 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 Labs reviewed WBC improving. Assessment and recommendation: 76-year-old male with a history of diabetes hypertension or high cholesterol. Severe spinal stenosis. Poorly controlled diabetes. Associated with this gluteal abscess, complicated at the gram-positive cocci localized skin infection. Continue the current IV antibiotic. Waiting for the culture Objective - Vital Signs/Intake and Output Vital Signs (last 24 hours): Temp Pulse Resp BP Pulse Ox 97.5 F L 70 18 147/78 95 12/07/16 16:00 12/07/16 16:00 12/07/16 16:00 12/07/16 16:00 12/07/16 16:00 Intake and Output: 12/07/16 12/08/16 18:59 06:59 Intake Total 1200 Output Total 1000 Balance 200 - Medications Medications: Current Medications Aspirin (Ecotrin) 81 mg PO DAILY [facility] Last Admin: 12/07/16 11:53 Dose: 81 mg Donepezil HCl (Aricept) 10 mg PO HS [facility] Last Admin: 12/07/16 22:01 Dose: 10 mg Gabapentin (Neurontin) 300 mg PO TID [facility] Last Admin: 12/07/16 17:50 Dose: 300 mg Glipizide (Glucotrol Xl) 10 mg PO BID [facility] Last Admin: 12/07/16 17:50 Dose: 10 mg Heparin Sodium (Porcine) (Heparin) 5,000 units SC Q8 [facility] Last Admin: 12/07/16 22:01 Dose: 5,000 units Sodium Chloride (Sodium Chloride 0.9%) 1,000 mls @ 100 mls/hr IV .Q10H [facility] Last Admin: 12/07/16 21:03 Dose: Not Given Clindamycin Phosphate 300 mg/ (Sodium Chloride) 52 mls @ 100 mls/hr IVPB Q8H [facility] Last Admin: 12/07/16 16:36 Dose: 100 mls/hr Vancomycin HCl 1 gm/ Sodium (Chloride) 250 mls @ 166.7 mls/hr IVPB Q24H [facility] Last Admin: 12/07/16 19:23 Dose: 166.7 mls/hr Insulin Glargine (Lantus) 15 unit SC [facility] Last Admin: 12/07/16 22:19 Dose: 15 unit Insulin Human Regular (Novolin R) 0 unit SC [facility] PRN Reason: Protocol Last Admin: 12/07/16 21:48 Dose: Not Given Losartan Potassium (Cozaar) 25 mg PO DAILY [facility] Last Admin: 12/07/16 11:52 Dose: 25 mg Metformin HCl (Glucophage Xr) 750 mg PO BID [facility] Last Admin: 12/07/16 19:23 Dose: 750 mg Mupirocin (Bactroban Ointment) 0 gm TOP BID [facility] Last Admin: 12/07/16 17:51 Dose: 1 applic Rosuvastatin Calcium (Crestor) 5 mg PO [facility] Last Admin: 12/07/16 22:01 Dose: 5 mg - Labs Labs: 12/05/16 18:51 12/05/16 18:51
[2016-12-08] MEDS: Clindamycin 300 MG in Sodium Chloride 0.9% 50 ML IVPB SCH ×4 (00:41→23:53)
[2016-12-08] MEDS: Sodium Chloride 0.9% 1,000 ML IV SCH ×4 (00:43→18:00)
[2016-12-08] MEDS: (Novolin R) Insulin Human Regular 100 units/ml vial SC SCH ×4 (09:29→21:28)
[2016-12-08] MEDS: GlipiZIDE 10 mg SR Tab PO SCH ×2 (10:28→17:00)
--- NOTE | 2016-12-08 12:10 | CP.PCM.PN ---
Subjective - Date & Time of Evaluation Date of Evaluation: 12/08/16 Time of Evaluation: 12:06 - Subjective Subjective: General Surgery Note for Dr. Garcia Patient seen and examined at bedside. No acute event overnight. Patient lying in bed comfortably. Patient reports mild tenderness over L buttocks. Denies f/c , cp, sob, abd pain, n/v/d. Objective - Vital Signs/Intake and Output Vital Signs (last 24 hours): Temp Pulse Resp BP Pulse Ox 97.3 F L 68 20 177/82 H 97 12/08/16 08:00 12/08/16 08:00 12/08/16 08:00 12/08/16 08:00 12/08/16 08:00 Intake and Output: 12/08/16 12/08/16 06:59 18:59 Intake Total 1200 Output Total 1000 Balance 200 - Medications Medications: Current Medications Aspirin (Ecotrin) 81 mg PO DAILY [facility] Last Admin: 12/08/16 10:28 Dose: 81 mg Donepezil HCl (Aricept) 10 mg PO [facility] Last Admin: 12/07/16 22:01 Dose: 10 mg Gabapentin (Neurontin) 300 mg PO TID [facility] Last Admin: 12/08/16 10:31 Dose: 300 mg Glipizide (Glucotrol Xl) 10 mg PO BID [facility] Last Admin: 12/08/16 10:28 Dose: 10 mg Heparin Sodium (Porcine) (Heparin) 5,000 units SC Q8 [facility] Last Admin: 12/08/16 05:43 Dose: 5,000 units Sodium Chloride (Sodium Chloride 0.9%) 1,000 mls @ 100 mls/hr IV .Q10H [facility] Last Admin: 12/08/16 08:08 Dose: Not Given Clindamycin Phosphate 300 mg/ (Sodium Chloride) 52 mls @ 100 mls/hr IVPB Q8H [facility] Last Admin: 12/08/16 08:26 Dose: 100 mls/hr Vancomycin HCl 1 gm/ Sodium (Chloride) 250 mls @ 166.7 mls/hr IVPB Q24H [facility] Last Admin: 12/07/16 19:23 Dose: 166.7 mls/hr Insulin Glargine (Lantus) 15 unit SC [facility] Last Admin: 12/07/16 22:19 Dose: 15 unit Insulin Human Regular (Novolin R) 0 unit SC ACHS [facility] PRN Reason: Protocol Last Admin: 12/08/16 09:29 Dose: 1 unit Losartan Potassium (Cozaar) 25 mg PO DAILY [facility] Last Admin: 12/08/16 10:31 Dose: 25 mg Metformin HCl (Glucophage Xr) 750 mg PO BID [facility] Last Admin: 12/08/16 10:28 Dose: 750 mg Mupirocin (Bactroban Ointment) 0 gm TOP BID [facility] Last Admin: 12/08/16 10:29 Dose: 1 applic Rosuvastatin Calcium (Crestor) 5 mg PO HS [facility] Last Admin: 12/07/16 22:01 Dose: 5 mg - Labs Labs: 12/05/16 18:51 12/05/16 18:51 - Constitutional Appears: No Acute Distress - Head Exam Head Exam: ATRAUMATIC, NORMOCEPHALIC - Eye Exam Eye Exam: Normal appearance - ENT Exam ENT Exam: Mucous Membranes Moist - Respiratory Exam Respiratory Exam: NORMAL BREATHING PATTERN - Cardiovascular Exam Cardiovascular Exam: REGULAR RHYTHM - GI/Abdominal Exam GI & Abdominal Exam: Soft. absent: Tenderness - Back Exam Additional comments: L buttock cyst was excised yesterday dressing changed today - are clean and dry - Neurological Exam Neurological Exam: Alert, Awake - Psychiatric Exam Psychiatric exam: Normal Affect, Normal Mood - Skin Skin Exam: Dry, Normal Color, Warm Assessment and Plan - Assessment and Plan (Free Text) Plan: 76 M with L buttock cyst, s/p bedside excision POD #1 -Dressing changes daily -Continue IV abx -Continue medical management -No further surgical intervention -Will GABINO Doshi PGY1
[2016-12-08] MEDS: (Lantus) Insulin Glargine, Recombinant SC SCH (21:24)
[2016-12-09] MEDS: (Novolin R) Insulin Human Regular 100 units/ml vial SC SCH ×4 (06:59→21:20)
[2016-12-09] MEDS: Clindamycin 300 MG in Sodium Chloride 0.9% 50 ML IVPB SCH ×2 (08:25→18:20)
[2016-12-09] MEDS: GlipiZIDE 10 mg SR Tab PO SCH ×2 (09:50→18:19)
--- NOTE | 2016-12-09 14:27 | RAD ---
PROCEDURE: CHEST RADIOGRAPH, 1 VIEW HISTORY: verify right PICC COMPARISON: Portable chest 10/11/2016. FINDINGS: LUNGS: Tiny metallic fragments density in the right lung and right back soft tissues unchanged in appearance. No acute infiltrate identified bilaterally. Linear atelectasis or fibrosis in the inferior right lung zone with mild elevation the right hemidiaphragm identified from uncertain etiology. Right PICC catheter terminates at distal superior vena cava. PLEURA: No pneumothorax or pleural fluid seen. CARDIOVASCULAR: Normal. OSSEOUS STRUCTURES: No significant abnormalities. VISUALIZED UPPER ABDOMEN: Normal. OTHER FINDINGS: None. IMPRESSION: No acute cardiopulmonary disease although right hemidiaphragm appears slightly elevated at this time, from an indeterminate etiology. Right upper extremity PICC insertion as discussed above.
--- NOTE | 2016-12-09 17:09 | CP.PCM.CON ---
History of Present Illness - History of Present Illness History of Present Illness: 76 year old male who presents to the ER with a complaint of an abscess to the left buttock. Prior records reviewed, patient was seen on 12/01 for a wound check after an I&D he had done at [facility]; however, patient denies any I&D procedure. - Medical History PMH: Anxiety, Arthritis, Asthma, Back Problems (Chronic Pain), Dementia, Diabetes, Gastritis, HTN, Hypercholesterolemia, Hyperlipidemia Surgical History: Coronary Stent - [facility] CORONAR ARTERIOGR-2 CATH (12/02/13) LEFT HEART CARDIAC CATH (12/02/13) LT HEART ANGIOCARDIOGRAM (12/02/13) Review of Systems - Review of Systems All systems: reviewed and no additional remarkable complaints except - Constitutional Constitutional: As Per HPI - EENT Eyes: absent: As Per HPI, Blind Spots, Blurred Vision, Change in Vision, Decreased Night Vision, Diplopia, Discharge, Dry Eye, Exophthalmos, Floaters, Irritation, Itchy Eyes, Loss of Peripheral Vision, Pain, Photophobia, Requires Corrective Lenses, Sees Flashes, Spots in Vision, Tunnel Vision, Other Visual Disturbances, Loss of Vision, Other Ears: absent: As Per HPI, Decreased Hearing, Ear Discharge, Ear Pain, Tinnitus, Abnormal Hearing, Disequilibrium, Dizziness, Other Nose/Mouth/Throat: absent: As Per HPI, Epistaxis, Nasal Congestion, Nasal Discharge, Nasal Obstruction, Nasal Trauma, Nose Pain, Post Nasal Drip, Sinus Pain, Sinus Pressure, Bleeding Gums, Change in Voice, Dental Pain, Dry Mouth, Dysphagia, Halitosis, Hoarsness, Lip Swelling, Mouth Lesions, Mouth Pain, Odynophagia, Sore Throat, Throat Swelling, Tongue Swelling, Facial Pain, Neck Pain, Neck Mass, Other - Cardiovascular Cardiovascular: absent: As Per HPI, Acrocyanosis, Chest Pain, Chest Pain at Rest , Chest Pain with Activity, Claudication, Diaphoresis, Dyspnea, Dyspnea on Exertion, Edema, Irregular Heart Rhythm, Pain Radiating to Arm/Neck/Jaw, Leg Edema, Leg Ulcers, Lightheadedness, Orthopnea, Palpitations, Paroxysmal Nocturnal Dyspnea, Pedal Edema, Radiating Pain, Rapid Heart Rate, Slow Heart Rate, Syncope, Other - Respiratory Respiratory: absent: As Per HPI, Cough, Dyspnea, Hemoptysis, Dyspnea on Exertion , Wheezing, Snoring, Stridor, Pain on Inspiration, Chest Congestion, Excessive Mucous Production, Change in Mucous Color, Pain with Coughing, Other - Gastrointestinal Gastrointestinal: absent: As Per HPI, Abdominal Pain, Belching, Bloating, Change in Bowel Habits, Change in Stool Character, Coffee Ground Emesis, Constipation, Cramping, Diarrhea, Dyspepsia, Dysphagia, Early Satiety, Excessive Flatus, Fecal Incontinence, Heartburn, Hematemesis, Hematochezia, Loose Stools, Melena, Nausea, Odynophagia, Temesmus, Vomiting, Other - Genitourinary Genitourinary: absent: As Per HPI, Change in Urinary Stream, Difficulty Urinating, Dysuria, Flank Pain, Hematuria, Pyuria, Nocturia, Urinary Incontinence, Urinary Frequency, Urinary Hesitance, Urinary Urgency, Voiding Freq/Small Amts, Freq UTI, Hx Renal/Bladder Calculi, Hx /Renal Surgery, Bladder Distension, Other - Musculoskeletal Musculoskeletal: absent: As Per HPI, Abnormal Gait, Arthralgias, Atrophy, Back Pain, Deformity, Joint Swelling, Limited Range of Motion, Loss of Height, Muscle Cramps, Muscle Weakness, Myalgias, Neck Pain, Numbness, Radiating Pain into Limb, Stiffness, Tingling, Other - Integumentary Integumentary: As Per HPI, Skin Pain, Wounds - Neurological Neurological: absent: As Per HPI, Abnormal Gait, Abnormal Hearing, Abnormal Movements, Abnormal Speech, Behavioral Changes, Burning Sensations, Confusion, Convulsions, Disequilibrium, Dizziness, Numbness, Focal Weakness, Frequent Falls , Headaches, Lack of Coordination, Loss of Vision, Memory Loss, Paresthesias, Radicular Pain, Restless Legs, Sensory Deficit, Syncope, Tingling, Tremor, Vertigo, Weakness, Other Visual Disturbances, Other - Psychiatric Psychiatric: absent: As Per HPI, Abnormal Sleep Pattern, Anhedonia, Anxiety, Auditory Hallucinations, Behavioral Changes, Change in Appetite, Change in Libido, Confusion, Depression, Difficulty Concentrating, Hallucinations, Homicidal Ideation, Hopelessness, Irritability, Memory Loss, Mood Swings, Panic Attacks, Paranoia, Suicidal Ideation, Visual Hallucinations, Tactile Hallucinations, Other - Endocrine Endocrine: absent: As Per HPI, Change in Body Appearance, Change in Libido, Cold Intolorance, Deepening of Voice, Excessive Sweating, Fatigue, Flushing, Heat Intolorance, Increase in Ring/Shoe/Hat Size, Palpitations, Polydipsia, Polyphagia, Polyuria, Other - Hematologic/Lymphatic Hematologic: absent: As Per HPI, Easy Bleeding, Easy Bruising, Lymphadenopathy, Other Past Patient History - Infectious Disease Hx of Infectious Diseases: None - Past Medical History & Family History Past Medical History?: Yes - Past Social History Smoking Status: Former Smoker - CARDIAC Hx Cardiac Disorders: Yes (coronary stent) Hx Hypercholesterolemia: Yes Hx Hypertension: Yes - PULMONARY Hx Asthma: Yes - NEUROLOGICAL Hx Dementia: Yes - HEENT Hx HEENT Problems: Yes (SEE COMMENT) Other/Comment: has eyeglasses for reading but doesn't use. - RENAL Hx Chronic Kidney Disease: No - ENDOCRINE/METABOLIC Hx Diabetes Mellitus Type 2: Yes - HEMATOLOGICAL/ONCOLOGICAL Hx Blood Disorders: No - INTEGUMENTARY Hx Dermatological Problems: No - MUSCULOSKELETAL/RHEUMATOLOGICAL Hx Arthritis: Yes (back pain) - GASTROINTESTINAL Hx Gastritis: Yes - GENITOURINARY/GYNECOLOGICAL Hx Genitourinary Disorders: No - PSYCHIATRIC Hx Anxiety: Yes Hx Substance Use: No - SURGICAL HISTORY Hx Coronary Stent: Yes - ANESTHESIA Hx Anesthesia: Yes Hx Anesthesia Reactions: No Hx Malignant Hyperthermia: No Meds Allergies/Adverse Reactions: Allergies Allergy/AdvReac Type Severity Reaction Status Date / Time morphine Allergy Intermediate SWELLING Verified 12/05/16 16:48 - Medications Medications: Current Medications Aspirin (Ecotrin) 81 mg PO DAILY [facility] Last Admin: 12/09/16 09:50 Dose: 81 mg Donepezil HCl (Aricept) 10 mg PO HS [facility] Last Admin: 12/08/16 21:24 Dose: 10 mg Gabapentin (Neurontin) 300 mg PO TID [facility] Last Admin: 12/09/16 13:08 Dose: 300 mg Glipizide (Glucotrol Xl) 10 mg PO BID [facility] Last Admin: 12/09/16 09:50 Dose: 10 mg Clindamycin Phosphate 300 mg/ (Sodium Chloride) 52 mls @ 100 mls/hr IVPB Q8H [facility] Last Admin: 12/09/16 08:25 Dose: 100 mls/hr Vancomycin HCl 1 gm/ Sodium (Chloride) 250 mls @ 166.7 mls/hr IVPB Q24H [facility] Last Admin: 12/08/16 21:00 Dose: 166.7 mls/hr Insulin Glargine (Lantus) 15 unit SC [facility] Last Admin: 12/08/16 21:24 Dose: 15 unit Insulin Human Regular (Novolin R) [address] [facility] PRN Reason: Protocol Last Admin: 12/09/16 16:35 Dose: Not Given Losartan Potassium (Cozaar) 25 mg PO DAILY [facility] Last Admin: 12/09/16 09:51 Dose: 25 mg Metformin HCl (Glucophage Xr) 750 mg PO BID [facility] Last Admin: 12/09/16 09:51 Dose: 750 mg Mupirocin (Bactroban Ointment) 0 gm TOP BID [facility] Last Admin: 12/09/16 09:53 Dose: 1 applic Rosuvastatin Calcium (Crestor) 5 mg PO [facility] Last Admin: 12/08/16 21:24 Dose: 5 mg Physical Exam - Constitutional Appears: Non-toxic, Confused, Chronically Ill - Head Exam Head Exam: NORMOCEPHALIC - Eye Exam Eye Exam: PERRL. absent: Scleral icterus - ENT Exam ENT Exam: Mucous Membranes Dry, Normal External Ear Exam - Neck Exam Neck exam: Negative for: Lymphadenopathy - Respiratory Exam Respiratory Exam: Decreased Breath Sounds - Cardiovascular Exam Cardiovascular Exam: REGULAR RHYTHM - GI/Abdominal Exam GI & Abdominal Exam: Diminished Bowel Sounds, Soft. absent: Tenderness - Rectal Exam Rectal Exam: Deferred - Exam Exam: NORMAL INSPECTION - Extremities Exam Extremities exam: Negative for: pedal edema - Back Exam Back exam: absent: CVA tenderness (L), CVA tenderness (R) - Neurological Exam Neurological exam: Alert, Altered, CN II-XII Intact - Psychiatric Exam Psychiatric exam: Depressed - Skin Skin Exam: Dry Additional comments: wound left buttock with pus Results - Vital Signs Recent Vital Signs: Last Vital Signs Temp 98.2 F 12/09/16 15:31 Pulse 71 12/09/16 15:31 Resp 20 12/09/16 15:31 BP 119/72 12/09/16 15:31 Pulse Ox 98 12/09/16 15:31 - Labs Result Diagrams: 12/05/16 18:51 12/05/16 18:51 Labs: Laboratory Results - last 24 hr 12/08/16 12/09/16 12/09/16 21:13 06:21 12:17 POC Glucose (mg/dL) 140 H 92 154 H 10/13/17 16:15 POC Glucose (mg/dL) 74 Assessment & Plan (1) Gluteal abscess Status: Acute (2) Altered mental status Status: Acute - Assessment and Plan (Free Text) Assessment: cont iv cleocin for 7 days with local wound care and surgical follow up
[2016-12-09] MEDS: (Lantus) Insulin Glargine, Recombinant SC SCH (22:23)
--- NOTE | 2016-12-09 23:11 | CP.PCM.PN ---
Subjective - Date & Time of Evaluation Date of Evaluation: 12/09/16 Time of Evaluation: 23:10 - Subjective Subjective: feeeling ok comfortable no fever no chest pain labs noted ID consult appreciated will continue to monitor Will get a PICC line. The possible discharge plan tomorrow morning. He will be continued IV antibiotic. Discussed with the infectious diseases. Objective - Vital Signs/Intake and Output Vital Signs (last 24 hours): Temp Pulse Resp BP Pulse Ox 98.2 F 71 20 119/72 98 12/09/16 15:31 12/09/16 15:31 12/09/16 15:31 12/09/16 15:31 12/09/16 15:31 Intake and Output: 12/09/16 12/10/16 18:59 06:59 Intake Total 880 Balance 880 - Medications Medications: Current Medications Aspirin (Ecotrin) 81 mg PO DAILY [facility] Last Admin: 12/09/16 09:50 Dose: 81 mg Donepezil HCl (Aricept) 10 mg PO [facility] Last Admin: 12/09/16 22:23 Dose: 10 mg Gabapentin (Neurontin) 300 mg PO TID [facility] Last Admin: 12/09/16 18:19 Dose: 300 mg Glipizide (Glucotrol Xl) 10 mg PO BID [facility] Last Admin: 12/09/16 18:19 Dose: 10 mg Clindamycin Phosphate 300 mg/ (Sodium Chloride) 52 mls @ 100 mls/hr IVPB Q8H [facility] Last Admin: 12/09/16 18:20 Dose: 100 mls/hr Insulin Glargine (Lantus) 15 unit SC [facility] Last Admin: 12/09/16 22:23 Dose: 15 unit Insulin Human Regular (Novolin R) 0 unit SC [facility] PRN Reason: Protocol Last Admin: 12/09/16 21:20 Dose: Not Given Losartan Potassium (Cozaar) 25 mg PO DAILY [facility] Last Admin: 12/09/16 09:51 Dose: 25 mg Metformin HCl (Glucophage Xr) 750 mg PO BID [facility] Last Admin: 12/09/16 18:19 Dose: 750 mg Mupirocin (Bactroban Ointment) 0 gm TOP BID [facility] Last Admin: 12/09/16 18:20 Dose: 1 applic Rosuvastatin Calcium (Crestor) 5 mg PO [facility] Last Admin: 12/09/16 22:23 Dose: 5 mg - Labs Labs: 12/05/16 18:51 12/05/16 18:51
[2016-12-10] MEDS: Clindamycin 300 MG in Sodium Chloride 0.9% 50 ML IVPB SCH ×3 (00:36→15:45)
[2016-12-10] MEDS: (Novolin R) Insulin Human Regular 100 units/ml vial SC SCH ×2 (07:23→13:44)
[2016-12-10 08:05] LABS: BASO % 0.9 % (0.0-2.0); EOS # 0.1 K/uL (0.0-0.7); HEMATOCRIT 46.7 % (35.0-51.0); LYMPH # 1.5 K/uL (1.0-4.3); LYMPH % 25.9 % (20.0-40.0); MEAN CELL VOLUME 83.1 fL (80.0-94.0); MEAN CORPUSCULAR HEMOGLOBIN 29.1 pg (27.0-31.0); MEAN PLATELET VOLUME 8.2 fL (7.2-11.7); MONO # 0.6 K/uL (0.0-0.8); MONO % 10.3 % (0.0-10.0); RED CELL DISTRIBUTION WIDTH 14.2 % (11.5-14.5); WHITE BLOOD COUNT 5.6 K/uL (4.8-10.8)
[2016-12-10 08:17] LABS: CHLORIDE 100 mmol/L (98-107); POTASSIUM 3.4 mmol/L (3.6-5.2); SODIUM 137 mmol/L (132-148)
[2016-12-10 08:19] LABS: GFR AFRICAN-AMERICAN > 60
[2016-12-10 08:20] LABS: ALKALINE PHOSPHATASE 84 U/L (38-126); ALT/SGPT 34 U/L (21-72); AST/SGOT 33 U/L (17-59); BILIRUBIN,TOTAL 0.6 mg/dL (0.2-1.3); BLOOD UREA NITROGEN 12 mg/dL (9-20); CARBON DIOXIDE 23 mmol/L (22-30); GLUCOSE,RANDOM 86 mg/dL (75-110); TOTAL PROTEIN 7.8 g/dL (6.3-8.3)
[2016-12-10 08:21] LABS: CALCIUM 9.3 mg/dl (8.6-10.4)
[2016-12-10] MEDS ORDERED: Potassium Chloride 20 mEq ER Tab PO ONE (09:32)
[2016-12-10] MEDS: GlipiZIDE 10 mg SR Tab PO SCH (10:43)
--- NOTE | 2016-12-10 12:13 | CP.PCM.PN ---
Subjective - Date & Time of Evaluation Date of Evaluation: 12/10/16 Time of Evaluation: 12:11 - Subjective Subjective: PT SEEN AND EXAMINED, RESP EASY AND UNLABORED. NO C/O, NAD Objective - Vital Signs/Intake and Output Vital Signs (last 24 hours): Temp Pulse Resp BP Pulse Ox 97.3 F L 70 18 148/96 H 96 12/10/16 07:45 12/10/16 07:45 12/10/16 07:45 12/10/16 07:45 12/10/16 07:45 Intake and Output: 12/10/16 12/10/16 06:59 18:59 Output Total 700 Balance -700 - Medications Medications: Current Medications Aspirin (Ecotrin) 81 mg PO DAILY [facility] Last Admin: 12/10/16 10:42 Dose: 81 mg Donepezil HCl (Aricept) 10 mg PO HS [facility] Last Admin: 12/09/16 22:23 Dose: 10 mg Gabapentin (Neurontin) 300 mg PO TID [facility] Last Admin: 12/10/16 10:42 Dose: 300 mg Glipizide (Glucotrol Xl) 10 mg PO BID [facility] Last Admin: 12/10/16 10:43 Dose: 10 mg Clindamycin Phosphate 300 mg/ (Sodium Chloride) 52 mls @ 100 mls/hr IVPB Q8H [facility] Last Admin: 12/10/16 08:36 Dose: 100 mls/hr Insulin Glargine (Lantus) 15 unit SC [facility] Last Admin: 12/09/16 22:23 Dose: 15 unit Insulin Human Regular (Novolin R) 0 unit SC [facility] PRN Reason: Protocol Last Admin: 12/10/16 07:23 Dose: Not Given Losartan Potassium (Cozaar) 25 mg PO DAILY [facility] Last Admin: 12/10/16 10:44 Dose: 25 mg Metformin HCl (Glucophage Xr) 750 mg PO BID [facility] Last Admin: 12/10/16 10:42 Dose: 750 mg Mupirocin (Bactroban Ointment) 0 gm TOP BID [facility] Last Admin: 12/10/16 10:46 Dose: 1 applic Rosuvastatin Calcium (Crestor) 5 mg PO [facility] Last Admin: 12/09/16 22:23 Dose: 5 mg - Labs Labs: 12/10/16 07:52 12/10/16 07:52 Assessment and Plan - Assessment and Plan (Free Text) Plan: 76 Y/O MALE ADMITTED FOR GLUTEAL ABSCESS AFEBRILE, NON-TOXIC WOUND CARE PICC INSERTION, IV CLINDAMYCIN -- FOR [address] BARKLEY CLEARED FOR D/C PER DR MAXWELL AND DR. BARKLEY NO FURTHER ORDERS.
[2016-12-10] MEDS ORDERED: Influenza Vaccine 60 mcg/0.5 mL SYR (4YR UP) IM ONE (14:45)
[2016-12-10] MEDS ORDERED: Pneumococcal 23-Valent Vaccine IM ONE (14:45)
[2016-12-10 15:41] VITALS: BP 156/80; PULSE 84; RESP 20; TEMP 98.1; O2SAT 97
--- NOTE | 2016-12-12 11:36 | CP.PCM.DIS ---
Provider - Provider Date of Admission: 12/06/16 16:13 Attending physician: Freida Jeronimo MD Time Spent in preparation of Discharge (in minutes): 45 Hospital Course - Lab Results Lab Results: Micro Results 12/05/16 17:48 Buttock Gram Stain - Final 12/05/16 17:48 Buttock Wound Culture - Final Methicillin Resistant S Aureus Most Recent Lab Values WBC 5.6 K/uL (4.8-10.8) 12/10/16 07:52 RBC 5.63 Mil/uL (4.40-5.90) 12/10/16 07:52 Hgb 16.3 g/dL (12.0-18.0) 12/10/16 07:52 Hct 46.7 % (35.0-51.0) 12/10/16 07:52 MCV 83.1 fL (80.0-94.0) 12/10/16 07:52 MCH 29.1 pg (27.0-31.0) 12/10/16 07:52 MCHC 35.0 g/dL (33.0-37.0) 12/10/16 07:52 RDW 14.2 % (11.5-14.5) 12/10/16 07:52 Plt Count 265 K/uL (130-400) 12/10/16 07:52 MPV 8.2 fL (7.2-11.7) 12/10/16 07:52 Neut % (Auto) 60.9 % (50.0-75.0) 12/10/16 07:52 Lymph % (Auto) 25.9 % (20.0-40.0) 12/10/16 07:52 [place] % (Auto) 10.3 % (0.0-10.0) H 12/10/16 07:52 Eos % (Auto) 2.0 % (0.0-4.0) 12/10/16 07:52 Baso % (Auto) 0.9 % (0.0-2.0) 12/10/16 07:52 Neut # 3.4 K/uL (1.8-7.0) 12/10/16 07:52 Lymph # 1.5 K/uL (1.0-4.3) 12/10/16 07:52 [place] # 0.6 K/uL (0.0-0.8) 12/10/16 07:52 Eos # 0.1 K/uL (0.0-0.7) 12/10/16 07:52 Baso # 0.0 K/uL (0.0-0.2) 12/10/16 07:52 Sodium 137 mmol/L (132-148) 12/10/16 07:52 Potassium 3.4 mmol/L (3.6-5.2) L 12/10/16 07:52 Chloride 100 mmol/L (98-107) 12/10/16 07:52 Carbon Dioxide 23 mmol/L (22-30) 12/10/16 07:52 Anion Gap 17 (10-20) 12/10/16 07:52 BUN 12 mg/dL (9-20) 12/10/16 07:52 Creatinine 0.7 mg/dL (0.8-1.5) L 12/10/16 07:52 Est GFR ( Amer) > 60 12/10/16 07:52 Est GFR (Non-Af Amer) > 60 12/10/16 07:52 POC Glucose (mg/dL) 171 mg/dL (65-110) H 12/10/16 11:16 Random Glucose 86 mg/dL (75-110) 12/10/16 07:52 Calcium 9.3 mg/dl (8.6-10.4) 12/10/16 07:52 Total Bilirubin 0.6 mg/dL (0.2-1.3) 12/10/16 07:52 AST 33 U/L (17-59) 12/10/16 07:52 ALT 34 U/L (21-72) 12/10/16 07:52 Alkaline Phosphatase 84 U/L (38-126) 12/10/16 07:52 Total Protein 7.8 g/dL (6.3-8.3) 12/10/16 07:52 Albumin 4.0 g/dL (3.5-5.0) 12/10/16 07:52 Globulin 3.8 gm/dL (2.2-3.9) 12/10/16 07:52 Albumin/Globulin Ratio 1.0 (1.0-2.1) 12/10/16 07:52 Vancomycin Trough < 5.0 ug/mL (5.0-10.0) L 12/09/16 19:49 Serum Ketones Negative (NEGATIVE) 12/05/16 18:51 - Hospital Course Hospital Course: Chief complaint: Swelling in the left gluteal area History of present illness: 76-year-old male with a history of diabetes hypertension hypercholesterolemia, peripheral vascular disease, spinal stenosis, dementia came to the emergency room with a swelling in the left gluteal area. 3 days ago patient came to the emergency room with the swelling, at that time he underwent incision and drainage, but symptoms got worse, he came into the emergency room. In the ER patient has no fever. He did not have any nausea vomiting. But he was not feeling well. Complaint of increasing pain. Needed hospitalization for further management of left gluteal swelling, indurated mass. Past medical history: Hypertension, hypercholesterolemia, diabetes, peripheral vascular disease, spinal stenosis, dementia Allergic: None Past surgical history: Used to smoke in the past, denies any alcohol Family history significant for hypertension. Medications noted from the chart, but the patient is very noncompliant with medication. Review of system: Denies any headache. Complaint of pain generalized. Poor intake. Gluteal swelling Examination: Vital signs stable. Chest good air entry bilaterally regular heart sound. HEENT PERRLA Heart sound. Abdomen soft nontender. Pedal edema 1+ noted. 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 Wound culture taken Assessment and recommendation: 76-year-old male with a noncompensatory medication, diabetes hypertension or high cholesterol spinal stenosis dementia. Poorly controlled diabetes. Admitted with a left gluteal abscess, complicated with a possible sepsis. Currently on intravenous IV antibiotic. Waiting for the culture. Infectious disease evaluation. Glucose control. Will follow the patient. Patient admitted to the hospital. Intravenous clindamycin started. Glucose control obtained. The left gluteal wound showing evidence of gram-positive cocci, MRSA noted. Infectious disease evaluation called. Patient will continue the IV antibiotic. He will be discharged to the rehabilitation. PICC line ordered. PICC line was done. Position verified. Medications reviewed Final diagnosis: Gluteal abscess, skin infection, secondary to MRSA. Severe diabetes, complicated with the severe hyperglycemia. Diabetes hypertension hypercholesterolemia PVD, spinal stenosis. Severe dementia. Patient will be discharged to the rehabilitation. Discharge Exam - Head Exam Head Exam: NORMOCEPHALIC Discharge Plan - Discharge Medications Prescriptions: Saccharomyces Boulardi [Florastor] 250 mg PO TID 14 Days cap - Follow Up Plan Condition: STABLE Disposition: TRANSF TO SNF Instructions: Mupirocin (On the skin), Clindamycin (By injection), Probiotic ( By mouth), MRSA (Methicillin Resistant Staphylococcus Aureus) (DC), Pneumococcal Vaccine for Adults (DC), Diabetic Ketoacidosis (DC), Diabetic Ketoacidosis (GEN), Diabetes Mellitus Type 2 in Adults (DC), Influenza Vaccine ( DC), Abscess (GEN) Additional Instructions: PLEASE PLACE UNDER THE SERVICE OF DR. GONZALES WHILE AT [place]-- CALL UPON ARRIVAL WITH BED ASSIGNMENT AND FOR ADMITTING ORDERS CLINDAMYCIN FOR 7 MORE DAYS-- PER ID CLEAN WOUND WITH NORMAL SALINE, APPLY BACTROBAN, COVER WITH STERILE DRESSING DAILY AND NEEDED. CONTINUE ALL MEDICATIONS PER THE MED REC FORM FALL PRECAUTIONS AND PICC CARE PER FACILITY PROTOCOL FOR FURTHER ORDERS, CALL DR MAXWELL'S OFFICE Referrals: Demond Duran MD [Staff Provider] - Bigg Garcia Jr., MD [Staff Provider] - Freida Jeronimo MD [Staff Provider] -
--- NOTE | 2016-12-12 11:36 | CP.PCM.PN ---
Subjective - Date & Time of Evaluation Date of Evaluation: 12/08/16 Time of Evaluation: 11:36 - Subjective Subjective: Patient is having increasing pain. Mild weakness noted. Eating okay, no diarrhea noted. woundculture culture showing evidence of gram-positive cocci Examination: Vital signs reviewed Chest good air entry bilaterally and is also nontender abdomen Gluteal wound induration noted. 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 Labs reviewed WBC improving. Assessment and recommendation: 76-year-old male with a history of diabetes hypertension or high cholesterol. Severe spinal stenosis. Poorly controlled diabetes. Associated with this gluteal abscess, complicated at the gram-positive cocci localized skin infection. Continue the current IV antibiotic. Waiting for the culture Objective - Vital Signs/Intake and Output Vital Signs (last 24 hours): Temp Pulse Resp BP Pulse Ox 98.1 F 84 20 156/80 H 97 12/10/16 15:40 12/10/16 15:40 12/10/16 15:40 12/10/16 15:40 12/10/16 15:40 - Labs Labs: 12/10/16 07:52 12/10/16 07:52
== END 2016-12-10 16:05 | DRG 603 ==
LOC: C.ER 16:15 → C.9E 19:54 → C.3T 21:06 → OBSVTOIN 12-06 16:13 → C.5S 12-07 14:25
PROVIDERS: ADMIT Internal Medicine; ATTEND Internal Medicine
PROC: 02HV33Z Insertion of Infusion Device into Superior Vena Cava, Percutaneous Approach (ICD-10-PCS; principal; 2016-12-09)
DX: L02.31 Cutaneous abscess of buttock (principal); E11.51 Type 2 diabetes mellitus with diabetic peripheral angiopathy without gangrene; F03.90 Unspecified dementia, unspecified severity, without behavioral disturbance, psychotic disturbance, mood disturbance, and anxiety; E11.65 Type 2 diabetes mellitus with hyperglycemia; J45.909 Unspecified asthma, uncomplicated; M48.00 Spinal stenosis, site unspecified; Z79.4 Long term (current) use of insulin; Z87.891 Personal history of nicotine dependence; Z91.14 Patient's other noncompliance with medication regimen; Z95.5 Presence of coronary angioplasty implant and graft; E78.5 Hyperlipidemia, unspecified; I10 Essential (primary) hypertension; B95.62 Methicillin resistant Staphylococcus aureus infection as the cause of diseases classified elsewhere